=== PATIENT | female | born 1960 | race Hispanic/Latino ===

== ENCOUNTER 2017-01-20 11:13 | Emergency (ER) | payer SELFPAY ==
[2017-01-20] MEDS ORDERED: Ketorolac Tromethamine 60 MG/2 ML VIAL ONE (12:13)
[2017-01-20 12:32] LABS: Bilirubin Negative (Negative); Blood, Urine Negative (Negative); Glucose, Urine (Dipstick) 100 mg/dL (Negative); Ketone, Urine Negative (Negative); Nitrite Negative (Negative); Protein, Urine (Dipstick) Negative (Neg-Trace)
[2017-01-20] MEDS ORDERED: Ondansetron ODT 4 MG TAB ONE (13:48)
[2017-01-20] MEDS ORDERED: Morphine 10 MG/ML VIAL ONE (13:49)
--- NOTE | 2017-01-20 14:18 | CT ---
ABDOMEN AND PELVIS CT SCAN WITHOUT IV CONTRAST: HISTORY: A 56-year-old female with low back pain and abdominal pain, which started yesterday. COMPARISON: 08/01/2016 FINDINGS: The lung bases are clear. Stable hypodensity in the right lobe of the liver, consistent with docume ntation of a benign hemangioma on the prior scan of 08/01/2016. Somewhat small caliber gallbladder. The pancreas, spleen, and adrenal glands are unremarkable. No evidence for renal calculus or acut e obstruction. Normal appearing appendix. Small fat-containing umbilical hernia. Small hiatal hernia. Unremarkable uterus and adnexa. Colonic diverticulosis without diverticulitis. IMPRESSION: No significant acute process in the abdomen or pelvis. Stable findings from prior study. Small hia jude hernia. Small fat-containing umbilical hernia. POS: [facility]
[2017-01-20 14:42] LABS: Hematocrit 33.2 % (36.0-47.0); Mean Platelet Volume 8.7 fL (7.4-10.4); Red Blood Cell (RBC) Count 4.58 mill/uL (4.20-5.40); White Blood Cell (WBC) Count 4.2 thou/uL (4.8-10.8)
[2017-01-20 15:02] LABS: ALT (SGPT) 16 U/L (8-55); AST (SGOT) 21 U/L (5-34); Alkaline Phosphatase 95 U/L (40-150); Anion Gap 14 mmol/L (10-20); BUN (Urea Nitrogen) 18 mg/dL (9.8-20.1); Bilirubin, Total 0.2 mg/dL (0.2-1.2); Calc. Creatinine Clearance 0 mL/min (70-130); Carbon Dioxide 23 mmol/L (22-29); Chloride 107 mmol/L (98-107); Estimated GFR-MDRD 73; Lipase 25 U/L (8-78); Protein, Total 7.7 g/dL (6.0-8.3)
[2017-01-20 15:04] LABS: #Basophils 0.1 thou/uL (0.0-0.2); #Eosinphils 0.1 thou/uL (0.0-0.7); #Lymphocytes 1.8 thou/uL (1.20-3.40); #Monocytes 0.5 thou/uL (0.11-0.59); #Neutrophils 1.7 thou/uL (1.40-6.50); %Basophils 1.9 % (0.0-1.0); %Eosinophils 2.8 % (0.0-10.0); %Lymphocytes 43.6 % (21.0-51.0); %Monocytes 11.4 % (0.0-10.0); Anisocytosis SLIGHT = 6-15 cells (100X) (0-5/hpf); Hypochromia SLIGHT = 6-15 cells (100X) (0-5/hpf); Microcytosis SLIGHT = 6-15 cells (100X) (0-5/hpf)
== END 2017-01-20 16:10 | disposition home or self-care (01) ==
LOC: ERS 11:13
DX: M54.5 Low back pain (principal); K21.9 Gastro-esophageal reflux disease without esophagitis; J45.909 Unspecified asthma, uncomplicated
CPT/HCPCS: 36415; 74176; 80053; 81003; 83690; 85025; 87086; 96372; J1885; J2270; Q0162

== ENCOUNTER 2017-04-13 11:48 | Emergency (ER) | payer OTHER, SELFPAY ==
[2017-04-13 12:09] LABS: Bilirubin Small (Negative); Blood, Urine Negative (Negative); Clarity CLEAR (Clear); Glucose, Urine (Dipstick) Negative (Negative); Leukocyte Trace (Negative); Nitrite Negative (Negative); Protein, Urine (Dipstick) 30 mg/dL (Neg-Trace); Specific Gravity, Urine 1.026 (1.002-1.036); Urobilinogen 0.2 mg/dL (0.2-1.0)
[2017-04-13 12:11] LABS: Bacteria/HPF None Seen HPF (None Seen); Hyaline Casts/LPF 4-6 HYALINE CAST LPF (0-3 Hyaline); Pathc Cast-AUWi Flag 0.54 (0-2.49)
[2017-04-13 12:39] LABS: #Eosinphils 0.1 thou/uL (0.0-0.7); #Lymphocytes 0.9 thou/uL (1.20-3.40); #Monocytes 0.3 thou/uL (0.11-0.59); %Basophils 0.6 % (0.0-1.0); %Eosinophils 1.2 % (0.0-10.0); %Lymphocytes 20.9 % (21.0-51.0); %Monocytes 6.9 % (0.0-10.0); %Neutrophils 70.4 % (42.0-75.0); Hemoglobin 10.8 g/dL (12.0-16.0); Hypochromia SLIGHT = 6-15 cells (100X) (0-5/hpf); MDiff Complete? YES; Mean Corpuscular HGB CONC 29.8 g/dL (32.0-36.0); Mean Corpuscular Hemoglobin 21.6 pg (27.0-31.0); Mean Corpuscular Volume 72.4 fl (81.0-99.0); Mean Platelet Volume 9.1 fL (7.4-10.4); Microcytosis SLIGHT = 6-15 cells (100X) (0-5/hpf); Platelet Count 302 thou/uL (130-400); RBC Distribution Width 17.7 % (11.5-14.5); Red Blood Cell (RBC) Count 4.98 mill/uL (4.20-5.40); White Blood Cell (WBC) Count 4.2 thou/uL (4.8-10.8)
[2017-04-13 12:43] LABS: ALT (SGPT) 14 U/L (8-55); AST (SGOT) 18 U/L (5-34); Albumin 4.1 g/dL (3.5-5.0); Alkaline Phosphatase 99 U/L (40-150); Anion Gap 13 mmol/L (10-20); BUN (Urea Nitrogen) 8 mg/dL (9.8-20.1); Bilirubin, Total 0.3 mg/dL (0.2-1.2); Calc. Creatinine Clearance 0 mL/min (70-130); Calcium 9.2 mg/dL (7.8-10.44); Carbon Dioxide 24 mmol/L (22-29); Chloride 103 mmol/L (98-107); Estimated GFR-MDRD 81; Globulin 4.2 g/dL (2.4-3.5); Glucose 139 mg/dL (70-105); Lipase 13 U/L (8-78); Potassium 3.5 mmol/L (3.5-5.1); Protein, Total 8.3 g/dL (6.0-8.3); Sodium 136 mmol/L (136-145)
[2017-04-13] MEDS ORDERED: Ondansetron HCl/PF 4 MG/2 ML Vial ONE (12:54)
[2017-04-13] MEDS ORDERED: Ketorolac Tromethamine 30 MG/ML VIAL ONE (12:54)
--- NOTE | 2017-04-13 13:20 | RAD ---
CHEST 2 VIEWS: HISTORY: Cough. COMPARISON: 02/14/15. FINDINGS: Cardiac silhouette is unremarkable. Pulmonary vasculature is upper limits of normal. Mediastinum is midline. There is no confluent airspace consolidation, pneumothorax, or pleural fluid evident. IMPRESSION: No active cardiopulmonary abnormalities demonstrated. POS: [facility]
--- NOTE | 2017-04-13 13:22 | CT ---
CT ABDOMEN AND PELVIS NONCONTRAST: HISTORY: Right flank pain. FINDINGS: Each renal collecting system, ureter, and urinary bladder are decompressed without stone evident. Ph leboliths are apparent within the retroperitoneum outside of the course of each ureter. Lack of contrast limits evaluation for other abnormalities. Hiatal hernia is again demonstrated. Li sanya is diffusely hypodense. Calcified granulomata are consistent with healed granulomatous disease. Diverticula arise from the colon without adjacent inflammation. IMPRESSION: 1. No CT evidence of urinary tract obstruction or calcification. 2. Hepatosteatosis. 3. Diverticulosis. POS: [facility]
[2017-04-13] MEDS ORDERED: Morphine 4 MG/ML Carpuject ONE (13:47)
--- NOTE | 2017-04-13 15:11 | ULT ---
RIGHT UPPER QUADRANT ULTRASOUND:: History: Right upper quadrant abdominal pain and flank pain. Comparison: 09-13-14 Technique: Multiplanar grayscale and color doppler images were obtained in a right upper quadrant abd ominal ultrasound. FINDINGS: The liver demonstrates slight increased echogenicity without focal lesions or intrahepatic duct dilat ation. The gallbladder contains a shadowing mobile stone without gallbladder wall thickening or peric holecystic fluid. The common bile duct is normal measuring 6 mm. The visualized portions of the pancreas are unremarkable. The right kidney is normal in echogenicity without hydronephrosis or calculus and measures 12.0 cm in length. IMPRESSION: 1. Cholelithiasis. 2. Fatty liver. POS: [facility]
== END 2017-04-13 15:00 | disposition home or self-care (01) ==
LOC: ERS 11:48 → SDC 04-14 06:52
DX: K80.20 Calculus of gallbladder without cholecystitis without obstruction (principal); F32.9 Major depressive disorder, single episode, unspecified; Z87.891 Personal history of nicotine dependence; Z79.899 Other long term (current) drug therapy
CPT/HCPCS: 36415; 71046; 74176; 76705; 80053; 81003; 81015; 82550; 83690; 85025; 87086; 87804; 94760; 96361; 96374; 96375; 99406; J1885; J2270; J2405

== ENCOUNTER 2017-04-15 18:34 | Inpatient (IN) | payer SELFPAY ==
[2017-04-15 18:56] LABS: #Monocytes 0.3 thou/uL (0.11-0.59); #Neutrophils 1.8 thou/uL (1.40-6.50); %Basophils 0.9 % (0.0-1.0); %Eosinophils 0.5 % (0.0-10.0); %Lymphocytes 32.1 % (21.0-51.0); %Monocytes 7.9 % (0.0-10.0); %Neutrophils 58.5 % (42.0-75.0); Hemoglobin 10.6 g/dL (12.0-16.0); Mean Corpuscular HGB CONC 29.2 g/dL (32.0-36.0); Mean Corpuscular Hemoglobin 21.1 pg (27.0-31.0); Mean Corpuscular Volume 72.2 fl (81.0-99.0); Mean Platelet Volume 9.6 fL (7.4-10.4); Platelet Count 244 thou/uL (130-400); RBC Distribution Width 17.7 % (11.5-14.5); Red Blood Cell (RBC) Count 5.04 mill/uL (4.20-5.40); White Blood Cell (WBC) Count 3.1 thou/uL (4.8-10.8)
[2017-04-15 19:17] LABS: ALT (SGPT) 12 U/L (8-55); AST (SGOT) 19 U/L (5-34); Alkaline Phosphatase 89 U/L (40-150); Anion Gap 13 mmol/L (10-20); BUN (Urea Nitrogen) 8 mg/dL (9.8-20.1); Bilirubin, Total 0.4 mg/dL (0.2-1.2); Calc. Creatinine Clearance 0 mL/min (70-130); Carbon Dioxide 23 mmol/L (22-29); Chloride 97 mmol/L (98-107); Estimated GFR-MDRD 83; Globulin 4.2 g/dL (2.4-3.5); Glucose 105 mg/dL (70-105); Lipase 6 U/L (8-78); Potassium 3.2 mmol/L (3.5-5.1); Protein, Total 8.2 g/dL (6.0-8.3); Sodium 130 mmol/L (136-145)
[2017-04-15 21:27] LABS: Bilirubin Small (Negative); Blood, Urine Negative (Negative); Clarity CLEAR (Clear); Glucose, Urine (Dipstick) Negative (Negative); Leukocyte Small (Negative); Nitrite Negative (Negative); Protein, Urine (Dipstick) 30 mg/dL (Neg-Trace); Specific Gravity, Urine 1.022 (1.002-1.036)
[2017-04-15 21:29] LABS: Bacteria/HPF 1+ HPF (None Seen); Hyaline Casts/LPF 0-3 HYALINE CAST LPF (0-3 Hyaline); Pathc Cast-AUWi Flag 0.27 (0-2.49)
[2017-04-15] MEDS ORDERED: Morphine 4 MG/ML Carpuject ONE (22:22)
[2017-04-15] MEDS ORDERED: Acetaminophen 500 MG TAB ONE (22:22)
[2017-04-15] MEDS ORDERED: Ondansetron HCl/PF 4 MG/2 ML Vial ONE (22:22)
--- NOTE | 2017-04-15 23:15 | ULT ---
RIGHT UPPER QUADRANT ULTRASOUND 04/15/17 PROVIDED CLINICAL HISTORY: Right upper quadrant pain. FINDINGS: Comparison is made with the study dated 04/13/17. The visualized portions of the pancreas appear normal. The liver demonstrates no mass or intrahepatic biliary ductal dilatation. The common duct is prominent in caliber measuring about 7 mm. Multiple ga llstones are again seen without evidence for wall thickening or pericholecystic fluid. The liver appe ars enlarged measuring about 22 cm in craniocaudal dimension at the right hepatic lobe. Fatty infiltr ation of the liver is again seen. IMPRESSION: 1. Cholelithiasis without acute findings related to the gallbladder apparent sonographically. 2. Prominent in caliber common duct. Please correlate with laboratory values to exclude the pres ence of biliary obstructive change. Correlation with MRCP may be useful as indicated. POS: [facility]
[2017-04-16] MEDS ORDERED: metroNIDAZOLE 500 MG/100 ML BAG ONE (00:11)
[2017-04-16 00:37] LABS: PTT 39.7 SEC (22.9-36.1); Prothrombin Time 13.3 SEC (12.0-14.7)
[2017-04-16] MEDS ORDERED: Morphine 4 MG/ML Carpuject ONE (00:46)
[2017-04-16] MEDS ORDERED: Diabetic Tussin DM 5 ML UDCUP PO SCH (01:00)
[2017-04-16 01:44] VITALS: BMI 29.2
[2017-04-16] MEDS ORDERED: Ondansetron ODT 4 MG TAB SL PRN (01:46)
[2017-04-16] MEDS ORDERED: Ondansetron HCl/PF 4 MG/2 ML Vial IVP PRN ×2 (01:46→09:46)
[2017-04-16] MEDS ORDERED: Morphine 2 MG/ML SYRINGE SLOW IVP PRN ×5 (01:46→10:15)
[2017-04-16] MEDS ORDERED: Acetaminophen 325 MG TAB PO PRN (01:46)
--- NOTE | 2017-04-16 07:55 | HP ---
CHIEF COMPLAINT: Right upper quadrant abdominal pain. HISTORY OF PRESENT ILLNESS: The patient is a 56-year-old female with a 5-day history of right upper quadrant pain radiating to the back, associated with nausea, vomiting, and subjective fever. She den ies dark urine. PAST MEDICAL HISTORY: She has a history of peptic ulcer disease. PAST SURGICAL HISTORY: None. MEDICATIONS: Prilosec. ALLERGIES: PENICILLIN. SOCIAL HISTORY: She is , unemployed. No tobacco, no alcohol. She has allergy to PENICILLIN . FAMILY HISTORY: Diabetes. PHYSICAL EXAMINATION: VITAL SIGNS: Temperature 98.4, pulse 77, blood pressure 105/68. GENERAL: She is an obese female in pain. HEENT: Unremarkable. No jaundice. LUNGS: Clear. HEART: Regular rate and rhythm. ABDOMEN: Tender in the right upper quadrant with a positive Wong's sign. EXTREMITIES: Unremarkable. LABORATORY DATA AND IMAGING: White count 3.1, H&H is 10 and 35, platelet count 244. Electrolytes ar e fine. LFTs are normal. Ultrasound shows cholelithiasis with enlarged common bile duct. ASSESSMENT: Acute cholecystitis. PLAN: Laparoscopic cholecystectomy with cholangiogram. CONSENT: I have discussed the planned procedure as well as risk of bleeding, infection, injury to bi le duct, injury to bowel, need to open. She understands and gives informed consent.
[2017-04-16] MEDS ORDERED: Levofloxacin 500 mg/D5W 100 ml Premix Bag ONE (08:27)
[2017-04-16] MEDS ORDERED: Iothalamate Meglumine 60% 50 ML VIAL FS ONE (08:34)
[2017-04-16] MEDS ORDERED: Lidocaine 2% w/Epinephrine 1:200K 20 ML VIAL ONE (08:34)
[2017-04-16] MEDS ORDERED: Bupivacaine 0.25% HCL 30 ML VIAL ONE (08:34)
[2017-04-16] MEDS ORDERED: Fentanyl 100 MCG/2 ML VIAL ONE ×3 (08:37→10:28)
[2017-04-16] MEDS ORDERED: FLU VACC QS2017-18 36 mo. & older 0.5 ML SYRINGE IM ONE (09:00)
[2017-04-16] MEDS ORDERED: Promethazine HCl 25 MG/ML VIAL IM PRN ×2 (09:46→09:56)
[2017-04-16] MEDS ORDERED: Morphine 4 MG/ML Carpuject SLOW IVP PRN (09:46)
[2017-04-16] MEDS ORDERED: HYDROcodone/Acetaminophen 10/325 mg Tablet PO PRN (09:46)
[2017-04-16] MEDS ORDERED: hydrALAZINE 20 MG/ML VIAL SLOW IVP PRN (09:46)
[2017-04-16] MEDS ORDERED: Dextrose 50% Abboject 50 ML SYRINGE SLOW IVP PRN (09:46)
[2017-04-16] MEDS ORDERED: Dextrose 5% in Water 1,000 ML IV PRN (09:46)
[2017-04-16] MEDS ORDERED: Mag-Al 1200 mg/1200 mg/30 ML UDCUP PO PRN (09:46)
[2017-04-16] MEDS ORDERED: Calcium Carbonate 500 MG ChewTAB PO PRN (09:46)
[2017-04-16] MEDS ORDERED: Morphine Sulfate 2 MG/ML SYRINGE SLOW IVP PRN (09:56)
[2017-04-16] MEDS ORDERED: Meperidine HCl/PF 25 MG/ML VIAL SLOW IVP PRN (09:56)
[2017-04-16] MEDS ORDERED: Promethazine HCl 25 MG/ML VIAL SLOW IVP PRN (09:56)
--- NOTE | 2017-04-16 10:28 | OP ---
DATE OF PROCEDURE: 04/16/2017 PREOPERATIVE DIAGNOSIS: Acute cholecystitis. SURGEON: Kamari Park M.D. PROCEDURE PERFORMED: Laparoscopic cholecystectomy with intraoperative cholangiogram. INDICATIONS: The patient is a 56-year-old female who has been having severe right upper quadrant salvatore n for the last 5 days, progressive in nature, associated with nausea. Ultrasound showed cholelithias is with enlarged common bile duct, but her liver function tests were normal. FINDINGS: Cholangiogram was normal. She did have somewhat inflamed gallbladder with some large ston es. PROCEDURE IN DETAIL: After informed consent was obtained, the patient was taken to the operating evelyne m and given general endotracheal anesthesia, was placed in the supine position. The abdomen was prep ped and draped in the usual fashion. Local anesthesia infiltrated subcutaneously and deep. A subumb ilical incision was performed. The subcu divided sharply. The fascia grasped and two stay sutures o f 0 Vicryl were placed to either side of midline. Midline incised. Digital palpation revealed no lo silvia adhesions. A blunt 10/12 mm trocar inserted. Pneumoperitoneum was created to a pressure of 15 m mHg. A 0-degree laparoscope inserted. Under direct vision, three 5 mm ports were placed subcostally . The gallbladder was distended and had to be aspirated and 90 mL of bile removed from the gallbladd er. Gallbladder was grasped and advanced superiorly. The distal gallbladder, cystic duct and cystic artery as well as critical view were dissected out. A clip was placed at the base of the gallbladde r. An Arrow cholangiocatheter inserted within the cystic duct and intraoperative cholangiogram was p erformed utilizing fluoroscopy. This showed free flow into the duodenum, no filling defects. The ca theter removed. The duct triply ligated and divided. The artery triply ligated and divided. The ga llbladder was removed from its fossa utilizing electrocautery, removed from the abdomen through the u mbilical port. Hemostasis was assured. Trocars and retractors were removed. The fascia was closed with interrupted 0 Vicryl suture. The skin was closed with interrupted 4-0 Rapide. Dermond miguel d. The patient tolerated the procedure well and transferred to recovery in good condition. Sponge a nd needle count verified correct x2.
--- NOTE | 2017-04-16 10:36 | RAD ---
CHOLANGIOGRAM INTRAOPERATIVE 1 VIEW: DATE: 04/16/17. HISTORY: A 56-year-old female with cholelithiasis. FINDINGS: A single small field of view fluoroscopic spot image is obtained with C-arm. Contrast fills the comm on bile duct and common hepatic duct, and the right hepatic duct and some of its proximal branches. The left hepatic duct and its branches are not opacified. There are cholecystectomy clips. Contrast material is visualized in the duodenum. The common bile duct is mildly dilated. It tapers to a nor mal caliber far inferiorly. No filling defect is identified. IMPRESSION: 1. No high-grade biliary obstruction. 2. Nonspecific finding of mild dilation of the common bile duct, without convincing evidence of chol edocholithiasis. POS: [facility]
[2017-04-16] MEDS: Ketorolac Tromethamine 30 MG/ML VIAL IVP SCH ×2 (12:30→17:53)
[2017-04-16] MEDS ORDERED: Ondansetron HCl/PF 4 MG/2 ML Vial ONE (15:03)
[2017-04-16] MEDS ORDERED: Dexamethasone 20 MG/5 ML VIAL ONE (15:03)
[2017-04-16] MEDS ORDERED: PROPOFOL 200 MG/20 ML VIAL ONE (15:03)
[2017-04-16] MEDS ORDERED: Ketorolac Tromethamine 30 MG/ML VIAL ONE (15:03)
[2017-04-16] MEDS ORDERED: Lidocaine 1% PF 5 ML VIAL ONE (15:03)
[2017-04-16] MEDS ORDERED: Glycopyrrolate 0.2 MG/ML 5 ML SYRINGE ONE (15:03)
[2017-04-16] MEDS: HYDROcodone/Acetaminophen 10/325 mg Tablet PO PRN (17:52)
[2017-04-16] MEDS: Sodium Chloride 0.9% 1,000 ML IV SCH (19:11)
[2017-04-16] MEDS: Famotidine 20 MG TAB PO SCH (21:23)
[2017-04-16] MEDS: Famotidine/PF 20 mg/2ml Vial SLOW IVP SCH (21:55)
[2017-04-17] MEDS: Ketorolac Tromethamine 30 MG/ML VIAL IVP SCH ×4 (00:44→17:08)
[2017-04-17 05:52] LABS: #Monocytes 0.3 thou/uL (0.11-0.59); #Neutrophils 1.8 thou/uL (1.40-6.50); %Basophils 0.8 % (0.0-1.0); %Eosinophils 0.4 % (0.0-10.0); %Lymphocytes 32.2 % (21.0-51.0); %Monocytes 9.3 % (0.0-10.0); %Neutrophils 57.2 % (42.0-75.0); Hemoglobin 9.1 g/dL (12.0-16.0); Mean Corpuscular HGB CONC 30.2 g/dL (32.0-36.0); Mean Corpuscular Volume 72.9 fl (81.0-99.0); Mean Platelet Volume 9.4 fL (7.4-10.4); Platelet Count 240 thou/uL (130-400); RBC Distribution Width 17.7 % (11.5-14.5); Red Blood Cell (RBC) Count 4.11 mill/uL (4.20-5.40); White Blood Cell (WBC) Count 3.2 thou/uL (4.8-10.8)
[2017-04-17 06:04] LABS: ALT (SGPT) 27 U/L (8-55); AST (SGOT) 44 U/L (5-34); Albumin 3.5 g/dL (3.5-5.0); Alkaline Phosphatase 80 U/L (40-150); Anion Gap 10 mmol/L (10-20); BUN (Urea Nitrogen) 9 mg/dL (9.8-20.1); Bilirubin, Total 0.2 mg/dL (0.2-1.2); Calc. Creatinine Clearance 115 mL/min (70-130); Calcium 8.9 mg/dL (7.8-10.44); Carbon Dioxide 26 mmol/L (22-29); Chloride 103 mmol/L (98-107); Estimated GFR-MDRD Greater than 90; Globulin 3.6 g/dL (2.4-3.5); Glucose 211 mg/dL (70-105); Potassium 3.1 mmol/L (3.5-5.1); Protein, Total 7.1 g/dL (6.0-8.3); Sodium 136 mmol/L (136-145)
[2017-04-17] MEDS: HYDROcodone/Acetaminophen 10/325 mg Tablet PO PRN ×2 (08:16→14:24)
[2017-04-17] MEDS: Famotidine 20 MG TAB PO SCH (08:16)
[2017-04-17] MEDS: Famotidine/PF 20 mg/2ml Vial SLOW IVP SCH (08:20)
[2017-04-17] MEDS ORDERED: Enoxaparin Sodium 40 MG/0.4 ML SYRINGE SC SCH (09:00)
--- NOTE | 2017-04-17 12:27 | DIS ---
DISCHARGE DIAGNOSIS: Acute cholecystitis. PROCEDURES DURING ADMISSION: Laparoscopic cholecystectomy with cholangiogram. HOSPITAL COURSE: The patient was admitted, given IV antibiotics, taken to the operating room where s he underwent a laparoscopic cholecystectomy with cholangiogram. Postoperatively, she has done well. She is tolerating liquids well, pain was controlled on p.o. medication. She is discharged home on h ydrocodone and Zofran. She will follow up with me in 2 weeks.
[2017-04-17 15:14] VITALS: BP 143/89; TEMP 97.4
[2017-04-17] MEDS ORDERED: Ondansetron ODT 4 MG TAB PO PRN (16:46)
--- NOTE | 2017-04-26 13:43 | EKG ---
Test Reason : Blood Pressure : / mmHG Vent. Rate : 079 BPM Atrial Rate : 079 BPM P-R Int : 136 ms QRS Dur : 080 ms QT Int : 426 ms P-R-T Axes : 053 005 041 degrees QTc Int : 488 ms Normal sinus rhythm Prolonged QT Abnormal ECG Confirmed by ECHO REYEZ ([id number]), design editor JUAN PARSONS ([id number]) on 04/26/2017 1:42:58 PM Referred By: DEREJE Confirmed By:ECHO REYEZ
== END 2017-04-17 17:49 | disposition home or self-care (01) | DRG 419 ==
LOC: ERS 18:34 → SURG B 23:55
PROVIDERS: ADMIT Surgery; ATTEND Surgery
PROC: 0FT44ZZ Resection of Gallbladder, Percutaneous Endoscopic Approach (ICD-10-PCS; principal; 2017-04-16)
PROC: BF130ZZ Fluoroscopy of Gallbladder and Bile Ducts using High Osmolar Contrast (ICD-10-PCS; 2017-04-16)
DX: K80.00 Calculus of gallbladder with acute cholecystitis without obstruction (principal); K27.9 Peptic ulcer, site unspecified, unspecified as acute or chronic, without hemorrhage or perforation
CPT/HCPCS: 36415; 47532; 76705; 80053; 81003; 81015; 82150; 83605; 83690; 85025; 85610; 85730; 86850; 86900; 86901; 87040; 88304; 93005; 96361; 96365; 96375; 96376; A4216; J0131; J0744; J1100; J1885; J1956; J2001; J2270; J2405; J2704; J3010; Q0162; Q9961; S0020; S0028

== ENCOUNTER 2017-04-20 11:52 | Observation (INO) | payer SELFPAY ==
[2017-04-20 12:39] LABS: #Basophils 0.1 thou/uL (0.0-0.2); #Lymphocytes 2.2 thou/uL (1.20-3.40); #Monocytes 0.4 thou/uL (0.11-0.59); #Neutrophils 5.4 thou/uL (1.40-6.50); %Basophils 1.1 % (0.0-1.0); %Eosinophils 0.6 % (0.0-10.0); %Lymphocytes 26.4 % (21.0-51.0); %Monocytes 5.4 % (0.0-10.0); %Neutrophils 66.5 % (42.0-75.0); Hemoglobin 12.8 g/dL (12.0-16.0); Mean Corpuscular HGB CONC 30.7 g/dL (32.0-36.0); Mean Corpuscular Volume 71.7 fl (81.0-99.0); Mean Platelet Volume 9.3 fL (7.4-10.4); Platelet Count 512 thou/uL (130-400); RBC Distribution Width 18.9 % (11.5-14.5); Red Blood Cell (RBC) Count 5.81 mill/uL (4.20-5.40); White Blood Cell (WBC) Count 8.2 thou/uL (4.8-10.8)
[2017-04-20 13:02] LABS: ALT (SGPT) 63 U/L (8-55); AST (SGOT) 66 U/L (5-34); Albumin 4.4 g/dL (3.5-5.0); Alkaline Phosphatase 136 U/L (40-150); Anion Gap 18 mmol/L (10-20); BUN (Urea Nitrogen) 32 mg/dL (9.8-20.1); Bilirubin, Total 0.8 mg/dL (0.2-1.2); Calc. Creatinine Clearance 0 mL/min (70-130); Calcium 10.3 mg/dL (7.8-10.44); Carbon Dioxide 23 mmol/L (22-29); Chloride 97 mmol/L (98-107); Estimated GFR-MDRD 45; Globulin 4.9 g/dL (2.4-3.5); Glucose 175 mg/dL (70-105); Lipase 17 U/L (8-78); Potassium 3.2 mmol/L (3.5-5.1); Protein, Total 9.3 g/dL (6.0-8.3); Sodium 135 mmol/L (136-145)
[2017-04-20] MEDS ORDERED: ISOVUE-370 76%-LOCM 1 ML ONE (14:36)
[2017-04-20] MEDS ORDERED: Fentanyl 100 MCG/2 ML VIAL ONE ×2 (15:55→18:06)
[2017-04-20] MEDS ORDERED: Ondansetron HCl/PF 4 MG/2 ML Vial ONE ×5 (15:55→18:06)
[2017-04-20] MEDS ORDERED: Ketorolac Tromethamine 30 MG/ML VIAL ONE (16:39)
[2017-04-20] MEDS ORDERED: Glycopyrrolate 0.2 MG/ML 5 ML SYRINGE ONE (16:39)
[2017-04-20] MEDS ORDERED: Lidocaine 1% PF 5 ML VIAL ONE (16:39)
[2017-04-20] MEDS ORDERED: PROPOFOL 200 MG/20 ML VIAL ONE (16:39)
[2017-04-20] MEDS ORDERED: Succinylcholine Chloride 20 MG/ML 10 ml SYRINGE FS ONE (16:39)
[2017-04-20] MEDS ORDERED: Dexamethasone 20 MG/5 ML VIAL ONE (16:39)
[2017-04-20] MEDS ORDERED: PHENYLEPHRINE-NS 100 MCG/ML 10 ML SYRINGE ONE (16:39)
[2017-04-20] MEDS ORDERED: ePHEDrine/0.9% NaCl/PF SYRINGE 50 mg/10 ml ONE (16:39)
[2017-04-20 17:01] LABS: Bilirubin Moderate (Negative); Blood, Urine Negative (Negative); Clarity CLEAR (Clear); Glucose, Urine (Dipstick) Negative (Negative); Leukocyte Negative (Negative); Nitrite Negative (Negative); Protein, Urine (Dipstick) 30 mg/dL (Neg-Trace); pH, Urine 6.5 (5.0-9.0)
[2017-04-20 17:03] LABS: Pathc Cast-AUWi Flag 1.21 (0-2.49)
[2017-04-20 17:05] LABS: Specific Gravity, Urine Greater than 1.060 (1.002-1.036)
--- NOTE | 2017-04-20 17:07 | RAD ---
1 VIEW CHEST: Date: 04/20/17 HISTORY: Pain. COMPARISON: 04/13/17. FINDINGS: Normal cardiac silhouette. Lungs and pleural spaces are clear. No pneumothorax or osseous abnormaliti es. IMPRESSION: No acute cardiopulmonary process. POS: [facility]
[2017-04-20 17:10] LABS: Bacteria/HPF None Seen HPF (None Seen); Hyaline Casts/LPF 0-3 HYALINE CAST LPF (0-3 Hyaline); RBC/HPF 0-3 HPF (0-3); Squamous Epithelial 0-3 HPF (0-3)
[2017-04-20 17:19] LABS: CKMB 0.5 ng/mL (0-6.6); Troponin I Less than 0.010 ng/mL (< 0.028)
--- NOTE | 2017-04-20 17:38 | CT ---
ABDOMEN CT WITH CONTRAST PELVIC CT WITH CONTRAST: Date: 04/20/17 HISTORY: Abdominal pain. COMPARISON: 08/01/16, 04/13/17. FINDINGS: ABDOMEN CT: Lung bases are clear. Heart size is within normal limits. No significant pericardial fluid. Descendin g thoracic aorta and abdominal aorta have a normal caliber. No periaortic fat stranding. Symmetric at tenuation of psoas muscles. Gallbladder is surgically absent. Intra and extrahepatic portal vein is patent. Hypoattenuation of the liver due to hepatic steatosis. No hepatic masses. The spleen, pancreas, and b ilateral adrenal glands have appropriate enhancement. No gastrohepatic, retrocrural, or significant periportal lymphadenopathy. There is nonspecific lymph node anterior to the aorta just superior to the celiac artery. This lymph node is unchanged from July 2016. Symmetric enhancement of the kidneys. Subcentimeter hypodensity in the right kidney, too small to rebel racterize. Bilaterally, no obstructive uropathy. No mesenteric mass, lymphadenopathy, free air, or free fluid. Limited evaluation of the alimentary canal due to lack of oral contrast administration. There is rede monstration of umbilical ventral abdominal hernia containing mesenteric fat. There is interval develo pment of abdominal hernia containing a segment of mesentery and small bowel. The afferent loops are d ilated and fluid-filled. The efferent loops are decompressed. Colon is unremarkable. Normal caliber appendix. Scattered fecal material in a nondistended, nondilate d colon. Diverticulosis, without evidence of diverticulitis. PELVIS CT: Uterus and adnexal structures are unremarkable. No pelvic mass, lymphadenopathy, free air, or free fl uid. Urinary bladder is unremarkable. No lytic or blastic lesions in the osseous structures. IMPRESSION: Small bowel obstruction secondary to a newly developed ventral abdominal hernia containing a short se gment of small bowel and mesentery. There is a transition segment at the level of the hernia. Surgica l consultation for reduction is recommended. Results of study discussed with Dr. Bonner on 04/20/17 at 1631 hours. CODE CR. POS: [facility]
--- NOTE | 2017-04-20 17:47 | RAD ---
1 VIEW ABDOMEN: Date: 04/20/17 HISTORY: Gastric tube placement. COMPARISON: None. FINDINGS: Nasogastric tube at level of GE junction. Repositioning and advancement is recommended. Air-filled lo ops of distended small bowel identified. Contrast is noted in left and right intrarenal collecting sy stems. IMPRESSION: Advancement of nasogastric tube is recommended. POS: [facility]
[2017-04-20] MEDS ORDERED: Morphine 2 MG/ML SYRINGE ONE (17:48)
[2017-04-20] MEDS ORDERED: HYDROmorphone 0.5 MG/0.5 ML SYRINGE ONE (18:06)
[2017-04-20] MEDS ORDERED: Famotidine/PF 20 mg/2ml Vial ONE (18:30)
[2017-04-20] MEDS ORDERED: Midazolam HCl 2 mg/2 ml Vial ONE (18:40)
[2017-04-20] MEDS ORDERED: Lidocaine 2% w/Epinephrine 1:200K 20 ML VIAL ONE (19:32)
[2017-04-20] MEDS ORDERED: Bupivacaine 0.25% HCL 30 ML VIAL ONE (19:32)
[2017-04-20] MEDS ORDERED: SUGAMMADEX SODIUM 200 MG/2 ML VIAL ONE (19:46)
--- NOTE | 2017-04-20 19:51 | HP ---
CHIEF COMPLAINT: Abdominal pain, nausea, and vomiting. HISTORY OF PRESENT ILLNESS: Ms. Capps is a 56-year-old woman. She underwent a laparoscopic cholecystectomy on 04/17/2017, but has had vomiting and abdominal pain since the operation. At this point, she cannot hold anything down and the pain is getting worse, so she decided to come to the emergency room. When she arrived, she reported her pain as 10/10. PAST MEDICAL HISTORY: Ulcer disease. PAST SURGICAL HISTORY: Laparoscopic cholecystectomy and tubal ligation. SOCIAL HISTORY: She used to smoke, does not drink or use illicit drugs. OUTPATIENT MEDICATIONS: [place] p.r.n. since her operation, which is not helping. ALLERGIES: She has an allergy to PENICILLIN, which causes a rash. FAMILY HISTORY: Noncontributory. PHYSICAL EXAMINATION: VITAL SIGNS: Temperature 97.1, heart rate 115, blood pressure 101/71, respirations 16, 95% saturated on room air. GENERAL: Reveals a tearful, anxious woman in obvious distress. She is not flushed or toxic. She is not jaundiced or icteric. HEENT: Unremarkable. NECK: Supple, without lymphadenopathy. HEART: Rate has come down a little bit, but is still around 100. It is regular. I do not appreciate any murmurs, rubs, or gallops. LUNGS: Clear to auscultation bilaterally. ABDOMEN: Mildly tender to palpation diffusely, but very tender just below the umbilicus where there is a firm knot, which I am unable to reduce with gentle pressure. EXTREMITIES: Warm and well perfused without edema. NEUROLOGIC: No focal deficits. PSYCHIATRIC: Alert, oriented, and appropriate. LABORATORY DATA: White count is normal, hematocrit 41, platelet 512, BUN and creatinine are mildly elevated at 32 and 1.24, glucose is 175, AST and ALT are mildly elevated at 66 and 63, bilirubin is normal. Potassium is slightly low at 3.2. On comparison with past labs, her BUN and creatinine has been normal in the past and her AST was only mildly elevated prior to her gallbladder surgery. Her hematocrit is significantly elevated from her labs from her hematocrit at the time for gallbladder surgery, which was [address] images are reviewed and I agree with the written report. The patient has dilated proximal small bowel and decompressed distal small bowel, the transition point is in a hernia just below her umbilicus. ASSESSMENT: Incarcerated obstructing ventral hernia. I have recommended urgent repair in the operating room. The patient is significantly dehydrated and I have ordered IV fluids and she has also received some IV fluids in the emergency room: 2 liters so far. I will likely keep her for observation postoperatively to make sure that her renal function returns to normal. I do not think that she likely has strangulated bowel, but if there is evidence of ischemic damage then a small bowel resection will be performed as well. The procedure and its inherent risks were discussed with the patient. These include , but are not limited to bleeding, infection, risks of anesthesia, damage to nearby structures, recurrence of the hernia, and anastomotic leak, a small bowel resection is necessary. She understands and accepts these risks and wishes to proceed. She is allergic to PENICILLIN, so I will order levofloxacin and Flagyl onion farmer to the OR. [facility]
[2017-04-20] MEDS ORDERED: Fentanyl 5000 MCG/250 ML CADD IVPB PRN (19:57)
[2017-04-20] MEDS ORDERED: diphenhydrAMINE 50 MG/ML VIAL IM PRN (19:57)
[2017-04-20] MEDS ORDERED: diphenhydrAMINE 50 MG/ML VIAL IVP PRN (19:57)
[2017-04-20] MEDS ORDERED: Ondansetron HCl/PF 4 MG/2 ML Vial IVP PRN ×2 (19:57)
[2017-04-20] MEDS ORDERED: Promethazine HCl 25 MG/ML VIAL SLOW IVP PRN (19:57)
[2017-04-20] MEDS ORDERED: Zolpidem Tartrate 5 MG TAB PO PRN (19:57)
[2017-04-20] MEDS ORDERED: Naloxone HCl 0.4 mg/ml Vial IV PRN (19:57)
[2017-04-20] MEDS ORDERED: Promethazine HCl 25 MG/ML VIAL IM PRN ×2 (19:57)
[2017-04-20] MEDS ORDERED: diphenhydrAMINE 25 MG CAP PO PRN (19:57)
[2017-04-20] MEDS ORDERED: Communication Order-Pharmacy FS SCH (20:00)
[2017-04-20] MEDS ORDERED: Cepastat Lozenges 1 LOZ PO PRN (21:45)
[2017-04-20] MEDS ORDERED: Chloraseptic Spray 180 ml Bottle PO PRN (21:45)
[2017-04-20] MEDS ORDERED: HYDROcodone/Acetaminophen 7.5/325 mg Tablet PO PRN (21:46)
[2017-04-20] MEDS ORDERED: Morphine 5 MG/ML SYRINGE SLOW IVP PRN ×2 (21:48)
[2017-04-20] MEDS: Sodium Chloride 0.9% 1,000 ML IV SCH (22:29)
[2017-04-21] MEDS: Acetaminophen 1,000 MG in Premix Bag 1 BAG IVPB SCH ×4 (00:13→16:51)
[2017-04-21 04:24] LABS: #Lymphocytes 0.8 thou/uL (1.20-3.40); #Monocytes 0.1 thou/uL (0.11-0.59); #Neutrophils 3.6 thou/uL (1.40-6.50); %Basophils 0.3 % (0.0-1.0); %Eosinophils 0.1 % (0.0-10.0); %Lymphocytes 17.3 % (21.0-51.0); %Monocytes 2.5 % (0.0-10.0); %Neutrophils 79.8 % (42.0-75.0); Hemoglobin 9.7 g/dL (12.0-16.0); Mean Corpuscular HGB CONC 30.9 g/dL (32.0-36.0); Mean Corpuscular Hemoglobin 22.2 pg (27.0-31.0); Mean Corpuscular Volume 71.8 fl (81.0-99.0); Mean Platelet Volume 9.2 fL (7.4-10.4); Platelet Count 326 thou/uL (130-400); RBC Distribution Width 17.6 % (11.5-14.5); Red Blood Cell (RBC) Count 4.35 mill/uL (4.20-5.40); White Blood Cell (WBC) Count 4.6 thou/uL (4.8-10.8)
[2017-04-21 04:34] LABS: Anion Gap 11 mmol/L (10-20); BUN (Urea Nitrogen) 22 mg/dL (9.8-20.1); Calc. Creatinine Clearance 111 mL/min (70-130); Carbon Dioxide 24 mmol/L (22-29); Chloride 103 mmol/L (98-107); Estimated GFR-MDRD 85; Glucose 187 mg/dL (70-105); Sodium 135 mmol/L (136-145)
[2017-04-21] MEDS: Sodium Chloride 0.9% 1,000 ML IV SCH ×3 (06:28→20:16)
--- NOTE | 2017-04-21 11:41 | RAD ---
2 VIEWS ABDOMEN: Date: 04/21/17 HISTORY: Incarcerated hernia with obstruction. COMPARISON: CT abdomen dated 04/20/17. FINDINGS: Supine and upright views of the abdomen show a nonspecific, nonobstructed bowel gas pattern. A NG tub e is seen in the stomach. Cholecystectomy clips are seen. There are a few air fluid levels within the left colon on the upright examination. No free air is seen. Air is seen to the level of the rectum. IMPRESSION: Nonobstructive bowel gas pattern. POS: [facility]
[2017-04-21] MEDS: Famotidine/PF 20 mg/2ml Vial SLOW IVP SCH (12:24)
[2017-04-21 12:44] VITALS: BMI 28.7
[2017-04-21] MEDS ORDERED: Acetaminophen 325 MG TAB PO PRN ×2 (15:43)
[2017-04-21] MEDS ORDERED: Pantoprazole 40 MG VIAL IVP SCH (17:30)
--- NOTE | 2017-04-22 00:32 | PRG ---
DATE OF SERVICE: 04/21/2017 Ms. Capps is feeling better today, still having a lot of pain at the periumbilical incision. She has not passed gas, but she has had diarrhea. No nausea and she had about 500 of bilious fluid out overnight. Abdomen is soft with normal bowel sounds. Incisions are clean without erythema or fluctuance. She has appropriate serafin-incisional tenderness, but no diffuse abdominal tenderness. ASSESSMENT: Resolving bowel obstruction following repair of incarcerated ventral hernia. The patient is still on the AD SETTER and has an NG tube down, which has had a fair amount of output. I will check a KUB today. If it looks like her small-bowel obstruction has indeed resolved, we will get the NG tube and will start her on clear liquids. If she tolerates clears, we will advance her to fulls, and switch her to oral medications, weaning off her AD SETTER. Anticipate she will be ready for discharge by tomorrow. Her renal function has improved and her urine output has picked up. [facility]
[2017-04-22] MEDS: Ondansetron HCl/PF 4 MG/2 ML Vial SLOW IVP PRN ×2 (04:36→13:32)
[2017-04-22] MEDS: HYDROcodone/Acetaminophen 7.5/325 mg Tablet PO PRN ×2 (09:13→17:03)
[2017-04-22] MEDS: Famotidine/PF 20 mg/2ml Vial SLOW IVP SCH (13:32)
[2017-04-22 17:29] VITALS: BP 138/89; TEMP 97.8
--- NOTE | 2017-04-23 11:28 | DIS ---
DATE OF ADMISSION: 04/20/2017 DATE OF DISCHARGE: 04/22/2017 FINAL DIAGNOSES: Incarcerated obstructing ventral incisional hernia. PROCEDURES: Repair of incarcerated obstructing ventral incisional hernia on . HISTORY: Ms. Capps is a 56-year-old woman who underwent a laparoscopic cholecystectomy by Dr. Park 2 days prior to her presentation. She did well initially postoperatively, but then developed nausea, vomiting, and abdominal pain which was unrelenting and not relieved by her pain medication, so she came back to the emergency room and a CT revealed an obstructing incisional ventral hernia at the level of the umbilicus. She was taken immediately to the operating room for emergent repair. The bowel was viable and was simply reduced into the abdominal cavity and the fascial defect repaired with suture. Postoperatively, she required IV pain medication for pain management and still had a fair amount of bilious output from her NG tube, which was left in overnight. The following day, she had return of bowel function and her NG tube was able to be discontinued and her diet advanced. She was transitioned over to oral pain medicine and by the following day, she was ready for discharge. DISCHARGE MEDICATIONS: Include outpatient medications of Ambien, Prilosec, Zofran, and [place]. She is to follow up with Dr. Park or myself in 2 weeks for postoperative checkup and to refrain from any heavy lifting or straining for the next 2 weeks. [facility]
--- NOTE | 2017-04-23 11:28 | OP ---
DATE OF PROCEDURE: 04/20/2016 PROCEDURE: Repair of incarcerated obstructing ventral hernia. PREOPERATIVE DIAGNOSIS: Incarcerated obstructing ventral incisional hernia. POSTOPERATIVE DIAGNOSIS: Incarcerated obstructing ventral incisional hernia. HISTORY: Ms. Capps is a 56-year-old woman who presented to the emergency room with nausea, vomiting, abdominal pain shortly after a laparoscopic cholecystectomy. She was found on CT to have a loop of small intestine herniated through the umbilical incision which was unable to be reduced at the bedside. Recommendation was made to proceed emergently to the operating room for repair of incarcerated obstructing ventral hernia. OPERATIVE PROCEDURE IN DETAIL: After informed consent was obtained and appropriate preoperative antibiotics administered, the patient was taken to the operating room where she was placed in supine position and general endotracheal anesthesia was administered. She was prepped and draped in a standard sterile fashion. The previous umbilical incision reopened. Dissection was carried down through the subcutaneous tissues and a loop of bowel encountered. This was viable in appearance although somewhat congested. The bowel was herniating through the fascia at the level of the umbilicus. A fascial suture was identified and cut to allow enough laxity in the fascia to reduce the bowel back into the abdominal cavity. The fascia was then examined. This was found to be quite attenuated and fatty in quality. This was reapproximated with several interrupted [id number] 0 Vicryl sutures with good technical result. The wound was then irrigated and hemostasis verified. The skin was closed with 4-0 subcuticular Monocryl sutures and Dermabond dressings were placed. Patient was extubated and taken to the recovery room in good condition. Estimated blood loss was minimal. There were no complications. There were no specimens. [facility]
== END 2017-04-22 18:21 | disposition home or self-care (01) ==
LOC: ERS 11:52 → SDC/OP 18:14 → SURG A 19:45
PROVIDERS: ADMIT Surgery; ATTEND Surgery
PROC: 0WQF0ZZ Repair Abdominal Wall, Open Approach (ICD-10-PCS; principal; 2017-04-22)
DX: K43.6 Other and unspecified ventral hernia with obstruction, without gangrene (principal); Z79.899 Other long term (current) drug therapy; Z88.0 Allergy status to penicillin; Z98.51 Tubal ligation status; Z90.49 Acquired absence of other specified parts of digestive tract; Z87.891 Personal history of nicotine dependence
CPT/HCPCS: 36415; 71045; 74018; 74019; 74177; 80048; 80053; 81003; 81015; 82553; 83690; 84484; 85025; 93005; 96361; 96374; 96375; 96376; J2270; C9113; G0378; J0131; J1100; J1170; J1885; J2001; J2250; J2405; J2704; J3010; S0020; S0028

== ENCOUNTER 2017-06-16 18:19 | Emergency (ER) | payer SELFPAY | END 2017-06-16 19:06 | disposition home or self-care (01) | LOC: ERS 18:19 | DX: H92.01 Otalgia, right ear (principal); F32.9 Major depressive disorder, single episode, unspecified; Z87.891 Personal history of nicotine dependence | CPT/HCPCS: 99282 ==

== ENCOUNTER 2017-09-11 10:21 | Emergency (ER) | payer SELFPAY ==
[2017-09-11 11:18] LABS: #Eosinphils 0.1 thou/uL (0.0-0.7); #Lymphocytes 2.6 thou/uL (1.20-3.40); #Monocytes 0.4 thou/uL (0.11-0.59); %Basophils 0.7 % (0.0-1.0); %Eosinophils 1.7 % (0.0-10.0); %Lymphocytes 42.4 % (21.0-51.0); %Monocytes 6.6 % (0.0-10.0); %Neutrophils 48.7 % (42.0-75.0); Hemoglobin 13.5 g/dL (12.0-16.0); Mean Corpuscular HGB CONC 32.7 g/dL (32.0-36.0); Mean Corpuscular Hemoglobin 27.1 pg (27.0-31.0); Mean Corpuscular Volume 82.8 fL (78.0-98.0); Mean Platelet Volume 6.7 fL (7.4-10.4); Platelet Count 292 thou/uL (130-400); RBC Distribution Width 19.2 % (11.5-14.5); Red Blood Cell (RBC) Count 4.98 mill/uL (4.20-5.40); White Blood Cell (WBC) Count 6.2 thou/uL (4.8-10.8)
[2017-09-11 11:28] LABS: Bacteria/HPF Rare-Few HPF (None Seen); Hyaline Casts/LPF 0-3 HYALINE CAST LPF (0-3 Hyaline); Squamous Epithelial 0-3 HPF (0-3)
[2017-09-11 11:31] LABS: Bilirubin Negative (Negative); Blood, Urine Negative (Negative); Clarity CLEAR (Clear); Glucose, Urine (Dipstick) Negative (Negative); Leukocyte Small (Negative); Nitrite Negative (Negative); Protein, Urine (Dipstick) Negative (Neg-Trace); Specific Gravity, Urine 1.018 (1.002-1.036); Urobilinogen 0.2 mg/dL (0.2-1.0)
[2017-09-11 11:46] LABS: ALT (SGPT) 14 U/L (8-55); AST (SGOT) 19 U/L (5-34); Alkaline Phosphatase 89 U/L (40-150); Anion Gap 13 mmol/L (10-20); BUN (Urea Nitrogen) 13 mg/dL (9.8-20.1); Bilirubin, Total 0.3 mg/dL (0.2-1.2); Calc. Creatinine Clearance 0 mL/min (70-130); Calcium 9.5 mg/dL (7.8-10.44); Carbon Dioxide 24 mmol/L (22-29); Chloride 102 mmol/L (98-107); Estimated GFR-MDRD 85; Globulin 3.8 g/dL (2.4-3.5); Glucose 181 mg/dL (70-105); Protein, Total 7.8 g/dL (6.0-8.3); Sodium 135 mmol/L (136-145)
[2017-09-11] MEDS ORDERED: Azithromycin 250 MG TAB ONE (12:19)
[2017-09-11] MEDS ORDERED: cefTRIAXone\\ROCEPHIN 250 MG VIAL ONE (12:19)
[2017-09-11] MEDS ORDERED: Lidocaine 1% PF 5 ML VIAL ONE (12:20)
== END 2017-09-11 12:52 | disposition home or self-care (01) ==
LOC: ERS 10:21
DX: N39.0 Urinary tract infection, site not specified (principal); F32.9 Major depressive disorder, single episode, unspecified; Z87.891 Personal history of nicotine dependence; Z79.899 Other long term (current) drug therapy
CPT/HCPCS: 36415; 80053; 81003; 81015; 85025; 87086; 96372; J0696; J2001

== ENCOUNTER 2017-09-30 09:11 | Emergency (ER) | payer SELFPAY ==
--- NOTE | 2017-09-30 11:59 | RAD ---
4 VIEW LEFT KNEE: Date: 09/30/17 INDICATION: Left knee pain. FINDINGS: Reference made to 06/24/07 exam. No fracture or dislocation. No joint capsular distention. There is mild osteoarthritis. IMPRESSION: No acute osseous abnormality of the left knee. POS: [facility]
[2017-09-30] MEDS ORDERED: Ketorolac Tromethamine 30 MG/ML VIAL ONE (13:40)
== END 2017-09-30 14:05 | disposition home or self-care (01) ==
LOC: ERS 09:11
DX: M17.12 Unilateral primary osteoarthritis, left knee (principal); F32.9 Major depressive disorder, single episode, unspecified; Z87.891 Personal history of nicotine dependence
CPT/HCPCS: 96372; J1885

== ENCOUNTER 2018-07-17 11:12 | Emergency (ER) | payer SELFPAY ==
[2018-07-17 11:43] LABS: Base Excess-Venous 0.1 mmol/L (-2.0 to 3.0); Bicarbonate (HCO3v) 24.9 mmol/L (22.0-28.0); CO2 Tension (PvCO2) 40.4 mmHg (40.0-50.0); Calcium, Ionized 1.19 mmol/L (See Comments:); Chloride 102 mmol/L (98-107); Hemoglobin - Calc 15.2 g/dL (12.0-16.0); O2 Tension (PvO2) 62.6 mmHg (35.0-45.0); Potassium 4.1 mmol/L (3.5-5.1); Sodium 135 mmol/L (138-145); T. Carbon Dioxide 26.2 mmol/L (22.0-28.0); pH (Venous) 7.398 (7.320-7.430); vO2 Saturation-calc 91.6 % (60.0-85.0)
[2018-07-17 11:56] LABS: #Basophils 0.1 thou/uL (0.0-0.2); #Eosinphils 0.2 thou/uL (0.0-0.7); #Lymphocytes 1.8 thou/uL (1.20-3.40); #Monocytes 0.5 thou/uL (0.11-0.59); #Neutrophils 4.3 thou/uL (1.40-6.50); %Basophils 0.8 % (0.0-1.0); %Eosinophils 2.2 % (0.0-10.0); %Lymphocytes 26.4 % (21.0-51.0); %Monocytes 7.3 % (0.0-10.0); %Neutrophils 63.3 % (42.0-75.0); Hemoglobin 13.2 g/dL (12.0-16.0); Mean Corpuscular HGB CONC 32.2 g/dL (32.0-36.0); Mean Corpuscular Volume 83.9 fL (78.0-98.0); Mean Platelet Volume 7.3 fL (7.4-10.4); Platelet Count 282 thou/uL (130-400); RBC Distribution Width 14.5 % (11.5-14.5); Red Blood Cell (RBC) Count 4.89 mill/uL (4.20-5.40); White Blood Cell (WBC) Count 6.8 thou/uL (4.8-10.8)
[2018-07-17 12:03] LABS: Bilirubin Negative (Negative); Blood, Urine Negative (Negative); Clarity CLEAR (Clear); Glucose, Urine (Dipstick) >=1000 mg/dL (Negative); Leukocyte Negative (Negative); Nitrite Negative (Negative); Protein, Urine (Dipstick) Negative (Neg-Trace); Specific Gravity, Urine 1.036 (1.002-1.036); Urobilinogen 0.2 mg/dL (0.2-1.0)
[2018-07-17 12:17] LABS: ALT (SGPT) 15 U/L (8-55); AST (SGOT) 14 U/L (5-34); Albumin 3.9 g/dL (3.5-5.0); Alkaline Phosphatase 110 U/L (40-150); Anion Gap 15 mmol/L (10-20); BUN (Urea Nitrogen) 12 mg/dL (9.8-20.1); Bilirubin, Total 0.4 mg/dL (0.2-1.2); Calc. Creatinine Clearance 0 mL/min (70-130); Calcium 9.4 mg/dL (7.8-10.44); Carbon Dioxide 23 mmol/L (22-29); Chloride 100 mmol/L (98-107); Estimated GFR-MDRD 77; Globulin 3.5 g/dL (2.4-3.5); Glucose 455 mg/dL (70-105); Potassium 4.2 mmol/L (3.5-5.1); Protein, Total 7.4 g/dL (6.0-8.3); Sodium 134 mmol/L (136-145)
[2018-07-17 12:42] LABS: Amphetamine Not Detected (NotDetected); Barbiturates Screen Not Detected (NotDetected); Benzodiazepine Screen Not Detected (NotDetected); Cocaine Metabolite Screen Not Detected (NotDetected); Medtox Control Line Valid? VALID (VALID); Medtox Reader # READER 1; Methadone Not Detected (NotDetected); Methamphetamine Not Detected (NotDetected); Opiate Screen Not Detected (NotDetected); Oxycodone Screen Not Detected (NotDetected); Phencyclidine (PCP) Not Detected (NotDetected); THC/Cannabinoid Screen Not Detected (NotDetected); Tricyclic Screen Not Detected (NotDetected)
[2018-07-17 12:44] LABS: Acetaminophen Less than 6.0 mcg/mL (10.0-30.0); Alcohol Less than 10 mg/dL (Less than 10); Salicylate Less than 8.0 mg/dL (15.0-30.0)
[2018-07-17] MEDS ORDERED: Acetaminophen 500 MG TAB ONE (14:24)
[2018-07-17] MEDS ORDERED: Insulin Regular 300 UNITS/3 ML VIAL ONE ×2 (14:24→16:57)
== END 2018-07-17 20:09 | disposition short-term general hospital (02) ==
LOC: ERS 11:12
DX: F32.9 Major depressive disorder, single episode, unspecified (principal); M19.90 Unspecified osteoarthritis, unspecified site; Z87.891 Personal history of nicotine dependence
CPT/HCPCS: 36416; 80053; 80306; 80307; 81003; 82010; 82330; 82803; 84443; 85025; 93005; 96361; 96374; J1815

== ENCOUNTER 2019-06-24 10:39 | Emergency (ER) | payer OTHER | END 2019-06-24 11:27 | disposition home or self-care (01) | LOC: ERS 10:39 | DX: J02.9 Acute pharyngitis, unspecified (principal); R19.7 Diarrhea, unspecified; R05 Cough; E11.9 Type 2 diabetes mellitus without complications; M19.90 Unspecified osteoarthritis, unspecified site; F32.9 Major depressive disorder, single episode, unspecified; Z87.891 Personal history of nicotine dependence | CPT/HCPCS: 99284; U0001 ==

== ENCOUNTER 2020-02-21 10:26 | Emergency (ER) | payer SELFPAY ==
[~2020-02-21 10:26] MED LIST: Iopamidol 370 76% 100 ML VIAL ONE; Iopamidol 370 76% 50 ML VIAL FS ONE
[2020-02-21 11:14] LABS: #Basophils 0.1 thou/uL (0.0-0.2); #Eosinphils 0.1 thou/uL (0.0-0.7); #Lymphocytes 2.8 thou/uL (1.20-3.40); #Monocytes 0.5 thou/uL (0.11-0.59); #Neutrophils 6.2 thou/uL (1.40-6.50); %Basophils 0.9 % (0.0-1.0); %Eosinophils 1.4 % (0.0-10.0); %Lymphocytes 28.6 % (21.0-51.0); %Monocytes 5.5 % (0.0-10.0); %Neutrophils 63.6 % (42.0-75.0); Hemoglobin 13.2 g/dL (12.0-16.0); Mean Corpuscular HGB CONC 32.3 g/dL (32.0-36.0); Mean Corpuscular Volume 80.3 fL (78.0-98.0); Platelet Count 322 thou/uL (130-400); RBC Distribution Width 15.4 % (11.5-14.5); Red Blood Cell (RBC) Count 5.09 mill/uL (4.20-5.40); White Blood Cell (WBC) Count 9.8 thou/uL (4.8-10.8)
[2020-02-21] MEDS ORDERED: Ondansetron PF 4 MG/2 ML Vial ONE (11:14)
[2020-02-21] MEDS ORDERED: Morphine 4 MG/ML VIAL ONE (11:14)
[2020-02-21 11:15] LABS: Bacteria/HPF None Seen HPF (None Seen); Bilirubin Negative (Negative); Blood, Urine Negative (Negative); Clarity Clear (Clear); Glucose, Urine (Dipstick) Greater than 1000 mg/dL (Negative); Ketone, Urine 20 mg/dL (Negative); Leukocyte Negative Leu/uL (Negative); Mucous/LPF 1+ LPF (<2+); Nitrite Negative (Negative); Protein, Urine (Dipstick) 30 mg/dL (Neg-Trace); RBC/HPF 0-3 HPF (0-3); Specific Gravity, Urine 1.035 (1.002-1.036); Urobilinogen Normal mg/dL (Less than 2)
[2020-02-21] MEDS ORDERED: Pantoprazole 40 MG VIAL ONE ×2 (11:23→12:27)
[2020-02-21 11:37] LABS: ALT (SGPT) 11 U/L (8-55); AST (SGOT) 15 U/L (5-34); Albumin 3.9 g/dL (3.5-5.0); Alkaline Phosphatase 87 U/L (40-110); Anion Gap 16 mmol/L (10-20); BUN (Urea Nitrogen) 15 mg/dL (9.8-20.1); Bilirubin, Total 0.6 mg/dL (0.2-1.2); Calc. Creatinine Clearance 0 mL/min (70-130); Calcium 8.9 mg/dL (7.8-10.44); Carbon Dioxide 21 mmol/L (22-29); Chloride 103 mmol/L (98-107); Globulin 3.1 g/dL (2.4-3.5); Glucose 358 mg/dL (70-105); Potassium 3.8 mmol/L (3.5-5.1); Sodium 136 mmol/L (136-145)
--- NOTE | 2020-02-21 14:39 | CT ---
EXAM: CT ABDOMEN AND PELVIS HISTORY: Abdominal pain. Evaluate for bowel obstruction. Diarrhea. Nausea and vomiting. COMPARISON: 01/15/2020 Procedure: Multiple contiguous axial images were obtained and a CT of the abdomen and pelvis with IV contrast. C oronal reformats were performed. FINDINGS: Lower Chest: within normal limits. Vessels: Normal caliber aorta. No periaortic fat stranding Heart: Normal heart size. Minimal coronary calcifications Abdomen: Portal vein:Patent Gallbladder: Surgically absent Liver: Diffuse hypoattenuation due to hepatic steatosis. No enhancing masses within the liver Pancreas: within normal limits. Spleen: within normal limits. Adrenals: within normal limits. Kidneys: Symmetric enhancement. No obstructive uropathy. Stable hypodensity in the left renal cortex. Peritoneum: No ascites or free air, no fluid collection. Bowel: Moderate hiatal hernia. Gastric mucosa, duodenum and small bowel loops have a normal caliber. Normal ileocecal junction. Caliber appendix. Colon is decompressed. Diverticulosis with associated mild diverticulitis in the sigmoid colon. No perforation or abscess. Mesentery and Retroperitoneum: No enlarged mesenteric or retroperitoneal lymph nodes. Abdominal Wall: Ventral abdominal wall hernia containing mesenteric fat and segments of small bowel. No evidence of bowel incarceration. Hernia defect measures 3.5 cm. There is a second umbilical hernia containing mesenteric fat. Pelvis: Reproductive Organs: Reproductive organs are unremarkable. Pelvis: No mass, lymphadenopathy, free air or free fluid. Bladder: within normal limits. Bones: within normal limits. IMPRESSION: 1. Diverticulitis without evidence of perforation or abscess. 2. Ventral abdominal wall hernia with mesenteric fat and small bowel loops. No associated bowel incar ceration or obstruction. 3. Moderate hiatal hernia.
[2020-02-21] MEDS ORDERED: HYDROcodone/Acetaminophen 5/325 mg Tablet ONE (15:06)
--- NOTE | 2020-02-26 09:37 | EKG ---
Test Reason : Blood Pressure : / mmHG Vent. Rate : 105 BPM Atrial Rate : 105 BPM P-R Int : 132 ms QRS Dur : 070 ms QT Int : 364 ms P-R-T Axes : 033 -31 023 degrees QTc Int : 481 ms Sinus tachycardia Possible Left atrial enlargement Left axis deviation Left ventricular hypertrophy Abnormal ECG Confirmed by BRIAN CARLIN DO ([id number]), medical editor JUAN PARSONS ([id number]) on 02/26/2020 9:37:02 AM Referred By: Confirmed By:BRIAN CARLIN DO
== END 2020-02-21 15:17 | disposition home or self-care (01) ==
LOC: ERS 10:26
DX: K57.92 Diverticulitis of intestine, part unspecified, without perforation or abscess without bleeding (principal); K43.9 Ventral hernia without obstruction or gangrene; E11.9 Type 2 diabetes mellitus without complications; M19.90 Unspecified osteoarthritis, unspecified site; Z87.891 Personal history of nicotine dependence; Z79.84 Long term (current) use of oral hypoglycemic drugs
CPT/HCPCS: 74177; 80053; 81003; 81015; 82274; 83690; 85025; 93005; 96365; 96375; C9113; J2270; J2405; Q9967

== ENCOUNTER 2020-03-08 10:31 | Emergency (ER) | payer SELFPAY ==
[2020-03-08 18:19] LABS: SARS-CoV-2 MS2 Positive; SARS-CoV-2 N Gene Negative; SARS-CoV-2 S Gene Negative; SARS-CoV-2 by NAA Not Detected (NotDetected); SARS-CoV-2 orf1ab Negative
== END 2020-03-08 10:52 | disposition home or self-care (01) ==
LOC: ERS 10:31
DX: M79.10 Myalgia, unspecified site (principal); Z20.828 Contact with and (suspected) exposure to other viral communicable diseases; E11.9 Type 2 diabetes mellitus without complications; M19.90 Unspecified osteoarthritis, unspecified site; Z87.891 Personal history of nicotine dependence; Z79.84 Long term (current) use of oral hypoglycemic drugs
CPT/HCPCS: 87635; 87804; 99283; U0003

== ENCOUNTER 2020-05-04 12:53 | Emergency (ER) | payer SELFPAY | END 2020-05-04 14:13 | disposition home or self-care (01) | LOC: ERS 12:53 | DX: S80.01XA Contusion of right knee, initial encounter (principal); W19.XXXA Unspecified fall, initial encounter | CPT/HCPCS: 99281 ==

== ENCOUNTER 2020-07-20 06:25 | Emergency (ER) | payer SELFPAY ==
[2020-07-20] MEDS ORDERED: Ondansetron PF 4 MG/2 ML Vial ONE (06:45)
[2020-07-20] MEDS ORDERED: Morphine 4 MG/ML VIAL ONE (06:50)
[2020-07-20] MEDS ORDERED: Lidocaine Viscous Sol 2% 15 ml UD Cup ONE (07:11)
[2020-07-20] MEDS ORDERED: Mag-Al 1200 mg/1200 mg/30 ML UDCUP ONE (07:11)
[2020-07-20 07:14] LABS: #Eosinphils 0.3 thou/uL (0.0-0.7); #Lymphocytes 2.2 thou/uL (1.20-3.40); #Monocytes 0.4 thou/uL (0.11-0.59); #Neutrophils 2.6 thou/uL (1.40-6.50); %Basophils 0.8 % (0.0-1.0); %Eosinophils 4.9 % (0.0-10.0); %Lymphocytes 39.2 % (21.0-51.0); %Neutrophils 47.1 % (42.0-75.0); Hemoglobin 10.8 g/dL (12.0-16.0); Mean Corpuscular HGB CONC 31.8 g/dL (32.0-36.0); Mean Corpuscular Hemoglobin 24.5 pg (27.0-31.0); Mean Corpuscular Volume 77.2 fL (78.0-98.0); Mean Platelet Volume 7.4 fL (7.4-10.4); Platelet Count 340 thou/uL (130-400); RBC Distribution Width 15.7 % (11.5-14.5); White Blood Cell (WBC) Count 5.5 thou/uL (4.8-10.8)
[2020-07-20 07:25] LABS: Bilirubin Negative (Negative); Blood, Urine Negative (Negative); Clarity Clear (Clear); Glucose, Urine (Dipstick) Greater than 1000 mg/dL (Negative); Ketone, Urine Negative (Negative); Leukocyte Negative Leu/uL (Negative); Nitrite Negative (Negative); Protein, Urine (Dipstick) 10 mg/dL (Neg-Trace); Specific Gravity, Urine 1.034 (1.002-1.036); Urobilinogen Normal mg/dL (Less than 2)
[2020-07-20 07:30] LABS: ALT (SGPT) 14 U/L (8-55); AST (SGOT) 15 U/L (5-34); Albumin 4.2 g/dL (3.5-5.0); Alkaline Phosphatase 136 U/L (40-110); Anion Gap 16 mmol/L (10-20); BUN (Urea Nitrogen) 15 mg/dL (9.8-20.1); Bilirubin, Total 0.3 mg/dL (0.2-1.2); Calc. Creatinine Clearance 0 mL/min (70-130); Calcium 9.7 mg/dL (7.8-10.44); Carbon Dioxide 22 mmol/L (22-29); Chloride 102 mmol/L (98-107); Glucose 352 mg/dL (70-105); Potassium 4.1 mmol/L (3.5-5.1); Protein, Total 8.2 g/dL (6.0-8.3); Sodium 136 mmol/L (136-145)
[2020-07-20] MEDS ORDERED: Lorazepam 2 MG/ML VIAL ONE (08:09)
[2020-07-20] MEDS ORDERED: Fentanyl 100 MCG/2 ML VIAL ONE (08:41)
== END 2020-07-20 09:16 | disposition home or self-care (01) ==
LOC: ERS 06:25
DX: K44.9 Diaphragmatic hernia without obstruction or gangrene (principal); K42.9 Umbilical hernia without obstruction or gangrene; Z79.84 Long term (current) use of oral hypoglycemic drugs; E11.9 Type 2 diabetes mellitus without complications; M19.90 Unspecified osteoarthritis, unspecified site; I10 Essential (primary) hypertension
CPT/HCPCS: 71045; 74177; 80053; 81003; 83690; 84484; 85025; 93005; 94760; 96374; 96375; J2060; J2270; J2405; J3010

== ENCOUNTER 2021-05-07 10:57 | Emergency (ER) | payer SELFPAY ==
[2021-05-07] MEDS ORDERED: HYDROcodone/Acetaminophen 7.5/325 mg Tablet ONE (11:36)
== END 2021-05-07 12:08 | disposition home or self-care (01) ==
LOC: ERS 10:57
DX: M25.562 Pain in left knee (principal)

== ENCOUNTER 2021-06-26 12:14 | Emergency (ER) | payer MEDICAID, SELFPAY ==
[2021-06-26] MEDS ORDERED: Morphine 4 MG/ML VIAL ONE ×2 (12:46→14:43)
[2021-06-26 13:05] LABS: #Basophils 0.1 thou/uL (0.0-0.2); #Eosinphils 0.2 thou/uL (0.0-0.7); #Lymphocytes 1.7 thou/uL (1.20-3.40); #Monocytes 0.5 thou/uL (0.11-0.59); #Neutrophils 3.3 thou/uL (1.40-6.50); %Basophils 1.3 % (0.0-1.0); %Eosinophils 4.2 % (0.0-10.0); %Monocytes 8.7 % (0.0-10.0); %Neutrophils 56.8 % (42.0-75.0); Hemoglobin 11.6 g/dL (12.0-16.0); Mean Corpuscular HGB CONC 31.4 g/dL (32.0-36.0); Mean Corpuscular Hemoglobin 25.3 pg (27.0-31.0); Mean Corpuscular Volume 80.6 fL (78.0-98.0); Mean Platelet Volume 6.9 fL (7.4-10.4); Platelet Count 313 thou/uL (130-400); RBC Distribution Width 15.8 % (11.5-14.5); White Blood Cell (WBC) Count 5.8 thou/uL (4.8-10.8)
[2021-06-26 13:33] LABS: ALT (SGPT) 11 U/L (8-55); AST (SGOT) 10 U/L (5-34); Alkaline Phosphatase 137 U/L (40-110); Anion Gap 13 mmol/L (10-20); BUN (Urea Nitrogen) 13 mg/dL (9.8-20.1); Bilirubin, Total 0.3 mg/dL (0.2-1.2); Calc. Creatinine Clearance 0 mL/min (70-130); Calcium 9.3 mg/dL (7.8-10.44); Carbon Dioxide 22 mmol/L (23-31); Chloride 104 mmol/L (98-107); Globulin 3.9 g/dL (2.4-3.5); Glucose 437 mg/dL (80-115); Potassium 4.1 mmol/L (3.5-5.1); Protein, Total 7.9 g/dL (5.8-8.1); Sodium 135 mmol/L (136-145)
[2021-06-26] MEDS ORDERED: Ondansetron PF 4 MG/2 ML Vial ONE (13:33)
[2021-06-26] MEDS ORDERED: Boostrix 0.5 ML (Tdap) VIAL ONE (13:44)
[2021-06-26] MEDS ORDERED: Rabies Immune Globulin 1500 UNITS/10 ML VIAL IM SCH (14:00)
[2021-06-26] MEDS ORDERED: Cefepime 2 GM in Sodium Chloride 0.9% 100 ML IVPB SCH (14:00)
[2021-06-26] MEDS ORDERED: Vancomycin HCl 1 GM in Sodium Chloride 0.9% 250 ML 250 ML IVPB SCH (14:00)
[2021-06-26] MEDS ORDERED: Rabies Vaccine Human 2.5 UNITS VIAL IM ONE (14:00)
[2021-06-26] MEDS ORDERED: Cefepime 2 GM VIAL ONE (14:06)
[2021-06-26 14:47] LABS: SARS-CoV-2 NAA Rapid Test Not Detected (NotDetected)
[2021-06-26] MEDS ORDERED: Acetaminophen 500 MG TAB ONE (16:52)
== END 2021-06-26 16:57 | disposition short-term general hospital (02) ==
LOC: ERS 12:14
DX: M00.9 Pyogenic arthritis, unspecified (principal); E11.9 Type 2 diabetes mellitus without complications; M19.90 Unspecified osteoarthritis, unspecified site; Z23 Encounter for immunization; Z20.822 Contact with and (suspected) exposure to COVID-19; Z87.19 Personal history of other diseases of the digestive system
CPT/HCPCS: 36415; 36416; 80053; 85025; 86140; 87040; 90375; 90376; 90471; 90675; 90715; 93005; 96365; 96367; 96372; 96375; 96376; J0692; J2270; J2405; J3370; J7050; U0002

== ENCOUNTER 2021-09-17 13:06 | Emergency (ER) | payer OTHER, MEDICAID | END 2021-09-17 15:42 | disposition home or self-care (01) | LOC: ERS 13:06 | DX: S80.02XA Contusion of left knee, initial encounter (principal); W01.0XXA Fall on same level from slipping, tripping and stumbling without subsequent striking against object, initial encounter; Y93.E9 Activity, other interior property and clothing maintenance ==

== ENCOUNTER 2021-10-07 11:04 | Emergency (ER) | payer MEDICAID, OTHER ==
[2021-10-07] MEDS ORDERED: Lidocaine 1% PF 5 ML VIAL ONE (12:07)
== END 2021-10-07 13:20 | disposition home or self-care (01) ==
LOC: ERS 11:04
DX: L03.811 Cellulitis of head [any part, except face] (principal); L02.811 Cutaneous abscess of head [any part, except face]; E11.9 Type 2 diabetes mellitus without complications

== ENCOUNTER 2021-10-22 09:47 | Emergency (ER) | payer MEDICAID, OTHER ==
[2021-10-22] MEDS ORDERED: Ketorolac Tromethamine 30 MG/ML VIAL ONE (11:14)
[2021-10-22] MEDS ORDERED: hydrOXYzine 25 MG TAB ONE (11:14)
== END 2021-10-22 11:20 | disposition home or self-care (01) ==
LOC: ERS 09:47
DX: S20.212A Contusion of left front wall of thorax, initial encounter (principal); L02.811 Cutaneous abscess of head [any part, except face]; W19.XXXA Unspecified fall, initial encounter
CPT/HCPCS: 71046; 96372; J1885

== ENCOUNTER 2021-11-11 14:18 | Emergency (ER) | payer OTHER ==
[~2021-11-11 14:18] MED LIST changes: -Iopamidol 370 76% 100 ML VIAL ONE; -Iopamidol 370 76% 50 ML VIAL FS ONE; +Iopamidol-370 76% 500 ML 1 ML ONE
[2021-11-11 14:48] LABS: #Basophils 0.1 thou/uL (0.0-0.2); #Eosinphils 0.2 thou/uL (0.0-0.7); #Lymphocytes 2.4 thou/uL (1.20-3.40); #Monocytes 0.5 thou/uL (0.11-0.59); %Basophils 0.9 % (0.0-1.0); %Eosinophils 2.4 % (0.0-10.0); %Lymphocytes 29.3 % (21.0-51.0); %Monocytes 6.5 % (0.0-10.0); %Neutrophils 60.9 % (42.0-75.0); Hemoglobin 14.4 g/dL (12.0-16.0); Mean Corpuscular HGB CONC 33.8 g/dL (32.0-36.0); Mean Corpuscular Hemoglobin 30.5 pg (27.0-31.0); Mean Platelet Volume 6.5 fL (7.4-10.4); Platelet Count 308 thou/uL (130-400); RBC Distribution Width 13.5 % (11.5-14.5); Red Blood Cell (RBC) Count 4.73 mill/uL (4.20-5.40); White Blood Cell (WBC) Count 8.2 thou/uL (4.8-10.8)
[2021-11-11] MEDS ORDERED: Lidocaine Viscous Sol 2% 15 ml UD Cup ONE (14:57)
[2021-11-11] MEDS ORDERED: Ondansetron PF 4 MG/2 ML Vial ONE (14:58)
[2021-11-11] MEDS ORDERED: Mag-Al 1200 mg/1200 mg/30 ML UDCUP ONE (14:58)
[2021-11-11 15:07] LABS: ALT (SGPT) 14 U/L (8-55); AST (SGOT) 12 U/L (5-34); Albumin 3.4 g/dL (3.4-4.8); Alkaline Phosphatase 85 U/L (40-110); Anion Gap 16 mmol/L (10-20); BUN (Urea Nitrogen) 18 mg/dL (9.8-20.1); Bilirubin, Total 0.2 mg/dL (0.2-1.2); Calc. Creatinine Clearance 0 mL/min (70-130); Calcium 8.9 mg/dL (7.8-10.44); Carbon Dioxide 20 mmol/L (23-31); Chloride 107 mmol/L (98-107); Estimated GFR 75; Globulin 3.3 g/dL (2.4-3.5); Glucose 233 mg/dL (80-115); Lipase 31 U/L (8-78); Potassium 3.9 mmol/L (3.5-5.1); Protein, Total 6.7 g/dL (5.8-8.1); Sodium 139 mmol/L (136-145)
[2021-11-11 16:21] LABS: Bilirubin Negative (Negative); Blood, Urine Negative (Negative); Clarity Clear (Clear); Glucose, Urine (Dipstick) Greater than 1000 mg/dL (Negative); Ketone, Urine Negative (Negative); Leukocyte Negative Leu/uL (Negative); Nitrite Negative (Negative); Protein, Urine (Dipstick) Negative (Neg-Trace)
== END 2021-11-11 17:40 | disposition home or self-care (01) ==
LOC: ERS 14:18
DX: S22.32XA Fracture of one rib, left side, initial encounter for closed fracture (principal); R16.0 Hepatomegaly, not elsewhere classified; K43.9 Ventral hernia without obstruction or gangrene; I10 Essential (primary) hypertension; E10.9 Type 1 diabetes mellitus without complications; X58.XXXA Exposure to other specified factors, initial encounter; Z79.84 Long term (current) use of oral hypoglycemic drugs; Z79.899 Other long term (current) drug therapy
CPT/HCPCS: 36415; 74177; 80053; 81003; 83690; 85025; 96374; J2405; Q9967

== ENCOUNTER 2022-02-20 07:56 | Emergency (ER) | payer OTHER ==
[2022-02-20 09:01] LABS: #Basophils 0.1 thou/uL (0.0-0.2); #Eosinphils 0.2 thou/uL (0.0-0.7); #Lymphocytes 1.8 thou/uL (1.20-3.40); #Monocytes 0.4 thou/uL (0.11-0.59); #Neutrophils 2.8 thou/uL (1.40-6.50); %Basophils 1.3 % (0.0-1.0); %Eosinophils 3.4 % (0.0-10.0); %Monocytes 7.5 % (0.0-10.0); %Neutrophils 52.8 % (42.0-75.0); Hemoglobin 13.2 g/dL (12.0-16.0); Mean Corpuscular HGB CONC 32.3 g/dL (32.0-36.0); Mean Corpuscular Hemoglobin 29.6 pg (27.0-31.0); Mean Corpuscular Volume 91.7 fl (78.0-98.0); Mean Platelet Volume 6.1 fL (7.4-10.4); Platelet Count 317 10x3/uL (130-400); RBC Distribution Width 12.4 % (11.5-14.5); Red Blood Cell (RBC) Count 4.45 mill/uL (4.20-5.40); White Blood Cell (WBC) Count 5.2 10x3/uL (4.8-10.8)
[2022-02-20 09:24] LABS: ALT (SGPT) 16 U/L (8-55); AST (SGOT) 14 U/L (5-34); Albumin 3.9 g/dL (3.4-4.8); Alkaline Phosphatase 97 U/L (40-110); Anion Gap 11 mmol/L (10-20); BUN (Urea Nitrogen) 8 mg/dL (9.8-20.1); Bilirubin, Total 0.5 mg/dL (0.2-1.2); Calc. Creatinine Clearance 0 mL/min (70-130); Calcium 8.7 mg/dL (7.8-10.44); Carbon Dioxide 20 mmol/L (23-31); Chloride 107 mmol/L (98-107); Estimated GFR 101; Globulin 3.2 g/dL (2.4-3.5); Glucose 324 mg/dL (80-115); Potassium 3.6 mmol/L (3.5-5.1); Protein, Total 7.1 g/dL (5.8-8.1); Sodium 134 mmol/L (136-145)
[2022-02-20] MEDS ORDERED: Ketorolac Tromethamine 30 MG/ML VIAL ONE (10:38)
[2022-02-20 11:05] LABS: Bilirubin Negative (Negative); Blood, Urine Negative (Negative); Clarity Clear (Clear); Glucose, Urine (Dipstick) Greater than 1000 mg/dL (Negative); Ketone, Urine Negative (Negative); Leukocyte Negative Leu/uL (Negative); Nitrite Negative (Negative); Protein, Urine (Dipstick) Negative (Neg-Trace); Specific Gravity, Urine 1.033 (1.002-1.036); Urobilinogen Normal mg/dL (Less than 2); pH, Urine 6.5 (5.0-9.0)
[2022-02-20 11:33] LABS: SARS-CoV-2 NAA Rapid Test Not Detected (NotDetected)
== END 2022-02-20 13:05 | disposition home or self-care (01) ==
LOC: ERS 07:56
DX: J45.901 Unspecified asthma with (acute) exacerbation (principal); J06.9 Acute upper respiratory infection, unspecified; E10.9 Type 1 diabetes mellitus without complications; I10 Essential (primary) hypertension; Z20.822 Contact with and (suspected) exposure to COVID-19; Z79.899 Other long term (current) drug therapy
CPT/HCPCS: 36415; 71045; 80053; 81003; 84484; 85025; 93005; 94640; 96374; J1885; J7620

== ENCOUNTER 2022-06-19 07:42 | Inpatient (IN) | payer OTHER ==
[2022-06-19] MEDS ORDERED: methylPREDNISolone Sod Succ/PF 125 MG/2 ML VIAL ONE (08:25)
[2022-06-19] MEDS ORDERED: Meclizine HCl 25 MG TAB ONE (08:25)
[2022-06-19 08:27] LABS: Mean Corpuscular HGB CONC 32.5 g/dL (32.0-36.0); Mean Corpuscular Hemoglobin 28.6 pg (27.0-31.0); Mean Corpuscular Volume 88.2 fl (78.0-98.0); Mean Platelet Volume 6.1 fL (7.4-10.4); Platelet Count 343 10x3/uL (130-400); RBC Distribution Width 15.6 % (11.5-14.5); White Blood Cell (WBC) Count 14.7 10x3/uL (4.8-10.8)
[2022-06-19] MEDS ORDERED: VANCOMYCIN 2 GRAM/500 ML BAG 2 GM in Premix Bag 1 BAG IVPB SCH (08:30)
[2022-06-19] MEDS ORDERED: Aztreonam 2 GM in Sodium Chloride 0.9% 100 ML IVPB SCH (08:30)
[2022-06-19 08:32] LABS: Bacteria/HPF None Seen HPF (None Seen); Bilirubin Negative (Negative); Blood, Urine Negative (Negative); Clarity Clear (Clear); Glucose, Urine (Dipstick) 150 mg/dL (Negative); Ketone, Urine Negative (Negative); Leukocyte 25 Leu/uL (Negative); Nitrite Negative (Negative); Protein, Urine (Dipstick) 10 mg/dL (Neg-Trace); RBC/HPF 0-3 HPF (0-3); Specific Gravity, Urine 1.016 (1.002-1.036); Urobilinogen 3 mg/dL (Less than 2)
[2022-06-19 08:36] LABS: INR-International Normal Ratio 0.9; PTT 25.6 sec (22.9-36.1); Prothrombin Time 12.1 sec (12.0-14.7)
[2022-06-19 08:43] LABS: ALT (SGPT) 16 U/L (8-55); AST (SGOT) 19 U/L (5-34); Albumin 3.7 g/dL (3.4-4.8); Alkaline Phosphatase 85 U/L (40-110); Anion Gap 15 mmol/L (10-20); BUN (Urea Nitrogen) 7 mg/dL (9.8-20.1); Bilirubin, Total 0.5 mg/dL (0.2-1.2); Calc. Creatinine Clearance 0 mL/min (70-130); Carbon Dioxide 22 mmol/L (23-31); Chloride 104 mmol/L (98-107); Estimated GFR 100; Globulin 3.7 g/dL (2.4-3.5); Glucose 211 mg/dL (80-115); Lipase 9 U/L (8-78); Magnesium 1.3 mg/dL (1.6-2.6); Potassium 3.7 mmol/L (3.5-5.1); Protein, Total 7.4 g/dL (5.8-8.1); Sodium 137 mmol/L (136-145)
[2022-06-19 08:46] LABS: Band 15 % (5-11); Eosinophils 1 % (0-10); Lymphocytes 8 % (21-51); MDiff Complete? YES; Monocytes 1 % (0-10); Neutrophil 75 % (42-75); RBC Morphology Normal
[2022-06-19 08:58] LABS: SARS-CoV-2 NAA Rapid Test Not Detected (NotDetected)
[2022-06-19] MEDS ORDERED: Ibuprofen 200 MG TAB ONE (10:01)
[2022-06-19] MEDS ORDERED: Magnesium 2 GM/50 ML BAG (IN WATER) ONE (10:31)
[2022-06-19] MEDS ORDERED: Dextrose 5% in Water 1,000 ML IV PRN (10:52)
[2022-06-19] MEDS ORDERED: Dextrose 50% Abboject 50 ML SYRINGE SLOW IVP PRN (10:52)
[2022-06-19] MEDS ORDERED: HumaLOG 300 UNITS/3 ML VIAL SC PRN ×2 (10:52→17:30)
[2022-06-19] MEDS ORDERED: Ipratropium/Albuterol 3 ML NEB NEB PRN (10:57)
[2022-06-19 11:03] LABS: #Lymphocytes 1.2 thou/uL (1.20-3.40); #Monocytes 0.2 thou/uL (0.11-0.59); #Neutrophils 14.8 thou/uL (1.40-6.50); %Basophils 0.3 % (0.0-1.0); %Eosinophils 0.2 % (0.0-10.0); %Lymphocytes 7.4 % (21.0-51.0); %Monocytes 1.1 % (0.0-10.0); Hemoglobin 11.8 g/dL (12.0-16.0); Mean Corpuscular HGB CONC 33.3 g/dL (32.0-36.0); Mean Corpuscular Hemoglobin 29.6 pg (27.0-31.0); Mean Platelet Volume 6.2 fL (7.4-10.4); Platelet Count 298 10x3/uL (130-400); RBC Distribution Width 15.7 % (11.5-14.5); Red Blood Cell (RBC) Count 3.99 mill/uL (4.20-5.40); White Blood Cell (WBC) Count 16.2 10x3/uL (4.8-10.8)
[2022-06-19] MEDS ORDERED: Albuterol 200 PUFF (6.7GM INHALER) ONE (11:03)
[2022-06-19 11:19] LABS: Lactic Acid 3.1 mmol/L (0.5-2.2)
[2022-06-19 13:34] VITALS: BMI 31.6
[2022-06-19] MEDS: Sodium Chloride 0.9% 1,000 ML IV SCH ×2 (14:38→20:51)
[2022-06-19 17:55] LABS: AST (SGOT) 13 U/L (5-34); Albumin 3.8 g/dL (3.4-4.8); Anion Gap 16 mmol/L (10-20); BUN (Urea Nitrogen) 12 mg/dL (9.8-20.1); Bilirubin, Total 0.5 mg/dL (0.2-1.2); Calc. Creatinine Clearance 84 mL/min (70-130); Calcium 9.2 mg/dL (7.8-10.44); Carbon Dioxide 17 mmol/L (23-31); Chloride 105 mmol/L (98-107); Estimated GFR 70; Globulin 3.4 g/dL (2.4-3.5); Potassium 4.2 mmol/L (3.5-5.1); Protein, Total 7.2 g/dL (5.8-8.1); Sodium 134 mmol/L (136-145)
[2022-06-19] MEDS: Aztreonam 1 GM in Sodium Chloride 0.9% 100 ML IVPB SCH (18:05)
[2022-06-19 18:21] LABS: Alkaline Phosphatase 80 U/L (40-110)
[2022-06-19 18:23] LABS: Glucose 496 mg/dL (80-115)
[2022-06-19 18:24] LABS: ALT (SGPT) 14 U/L (8-55)
[2022-06-19 19:54] LABS: Magnesium 2.2 mg/dL (1.6-2.6)
[2022-06-19] MEDS: lamoTRIgine 25 MG TAB PO SCH (20:13)
[2022-06-19] MEDS: Mirtazapine 15 MG Soltab PO SCH (20:13)
[2022-06-19] MEDS: Insulin Glargine 30 UNITS/0.3 ML VIAL SC SCH (20:58)
[2022-06-19] MEDS ORDERED: hydrOXYzine 25 MG TAB PO SCH (21:45)
[2022-06-19] MEDS ORDERED: PARoxetine 20 MG TAB PO SCH (21:45)
[2022-06-19] MEDS: Vancomycin 1.5 GRAM/300 ML BAG 1.5 GM in Premix Bag 1 BAG IVPB SCH (23:27)
[2022-06-20] MEDS: Aztreonam 1 GM in Sodium Chloride 0.9% 100 ML IVPB SCH ×3 (01:15→18:04)
[2022-06-20] MEDS: HumaLOG 300 UNITS/3 ML VIAL SC PRN ×4 (01:42→16:51)
[2022-06-20] MEDS ORDERED: predniSONE 50 MG TAB PO SCH ×3 (02:00→20:00)
[2022-06-20] MEDS: Sodium Chloride 0.9% 1,000 ML IV SCH ×2 (04:39→16:05)
[2022-06-20 05:15] LABS: #Lymphocytes 1.8 thou/uL (1.20-3.40); #Monocytes 0.6 thou/uL (0.11-0.59); #Neutrophils 13.3 thou/uL (1.40-6.50); %Eosinophils 0.1 % (0.0-10.0); %Lymphocytes 11.4 % (21.0-51.0); %Monocytes 3.5 % (0.0-10.0); %Neutrophils 84.9 % (42.0-75.0); Hemoglobin 10.7 g/dL (12.0-16.0); Mean Corpuscular HGB CONC 33.4 g/dL (32.0-36.0); Mean Corpuscular Hemoglobin 29.6 pg (27.0-31.0); Mean Corpuscular Volume 88.8 fl (78.0-98.0); Mean Platelet Volume 6.2 fL (7.4-10.4); Platelet Count 334 10x3/uL (130-400); RBC Distribution Width 15.8 % (11.5-14.5); Red Blood Cell (RBC) Count 3.61 mill/uL (4.20-5.40); White Blood Cell (WBC) Count 15.7 10x3/uL (4.8-10.8)
[2022-06-20 05:34] LABS: Phosphorus 1.8 mg/dL (2.3-4.7)
[2022-06-20] MEDS ORDERED: Ondansetron ODT 4 MG TAB PO PRN (07:58)
[2022-06-20] MEDS ORDERED: Acetaminophen 325 MG TAB PO PRN (07:58)
[2022-06-20] MEDS ORDERED: Ondansetron PF 4 MG/2 ML Vial IVP PRN (07:58)
[2022-06-20] MEDS: lamoTRIgine 25 MG TAB PO SCH ×2 (09:43→21:16)
[2022-06-20] MEDS: glipiZIDE 5 MG TAB PO SCH (09:43)
[2022-06-20] MEDS: Vancomycin 1.5 GRAM/300 ML BAG 1.5 GM in Premix Bag 1 BAG IVPB SCH ×2 (11:34→23:28)
[2022-06-20] MEDS ORDERED: methylPREDNISolone Sod Succ 40 MG VIAL IVP SCH (12:00)
[2022-06-20] MEDS ORDERED: Famotidine/PF 20 mg/2ml Vial SLOW IVP SCH (16:00)
[2022-06-20] MEDS ORDERED: diphenhydrAMINE 50 MG/ML VIAL IVP SCH (16:00)
[2022-06-20] MEDS ORDERED: HumaLOG 300 UNITS/3 ML VIAL SC PRN (20:03)
[2022-06-20] MEDS ORDERED: Gabapentin 300 MG CAP PO SCH (21:00)
[2022-06-20] MEDS ORDERED: Mirtazapine 15 MG Soltab PO SCH (21:00)
[2022-06-20] MEDS ORDERED: PARoxetine 20 MG TAB PO SCH (21:00)
[2022-06-20] MEDS ORDERED: hydrOXYzine 25 MG TAB PO SCH (21:00)
[2022-06-20] MEDS: Mirtazapine 15 MG Soltab PO SCH (21:15)
[2022-06-20] MEDS: Insulin Glargine 30 UNITS/0.3 ML VIAL SC SCH (21:16)
[2022-06-20 23:10] LABS: Vancomycin, Trough 10.2 ug/mL
[2022-06-21] MEDS: VANCOMYCIN 1.75 GM/500 ML BAG 1.75 GM in Premix Bag 1 BAG IVPB SCH ×2 (00:22→12:56)
[2022-06-21] MEDS: Aztreonam 1 GM in Sodium Chloride 0.9% 100 ML IVPB SCH ×2 (02:40→09:16)
[2022-06-21] MEDS: Sodium Chloride 0.9% 1,000 ML IV SCH ×2 (02:40→07:53)
[2022-06-21 06:39] LABS: #Basophils 0.1 thou/uL (0.0-0.2); #Eosinphils 0.1 thou/uL (0.0-0.7); #Lymphocytes 3.1 thou/uL (1.20-3.40); #Monocytes 0.6 thou/uL (0.11-0.59); #Neutrophils 8.8 thou/uL (1.40-6.50); %Basophils 0.6 % (0.0-1.0); %Eosinophils 0.5 % (0.0-10.0); %Lymphocytes 24.3 % (21.0-51.0); %Monocytes 4.4 % (0.0-10.0); %Neutrophils 70.2 % (42.0-75.0); Hemoglobin 10.9 g/dL (12.0-16.0); Mean Corpuscular HGB CONC 33.3 g/dL (32.0-36.0); Mean Corpuscular Hemoglobin 29.4 pg (27.0-31.0); Mean Corpuscular Volume 88.1 fl (78.0-98.0); Mean Platelet Volume 6.4 fL (7.4-10.4); Platelet Count 348 10x3/uL (130-400); RBC Distribution Width 15.7 % (11.5-14.5); Red Blood Cell (RBC) Count 3.69 mill/uL (4.20-5.40); White Blood Cell (WBC) Count 12.6 10x3/uL (4.8-10.8)
[2022-06-21 06:57] LABS: Anion Gap 11 mmol/L (10-20); BUN (Urea Nitrogen) 18 mg/dL (9.8-20.1); Calc. Creatinine Clearance 124 mL/min (70-130); Calcium 9.1 mg/dL (7.8-10.44); Carbon Dioxide 24 mmol/L (23-31); Chloride 106 mmol/L (98-107); Estimated GFR 101; Glucose 233 mg/dL (80-115); Potassium 3.7 mmol/L (3.5-5.1); Sodium 137 mmol/L (136-145)
[2022-06-21 08:36] VITALS: BP 149/90; TEMP 97.5
[2022-06-21] MEDS ORDERED: Loratadine 10 MG TAB PO SCH (09:00)
[2022-06-21] MEDS ORDERED: Aspirin 81 mg Enteric Coated Tablet PO SCH (09:00)
[2022-06-21] MEDS ORDERED: Lisinopril 10 MG TAB PO SCH (09:00)
[2022-06-21] MEDS: lamoTRIgine 25 MG TAB PO SCH (09:15)
[2022-06-21] MEDS: glipiZIDE 5 MG TAB PO SCH (09:15)
[2022-06-21] MEDS: HumaLOG 300 UNITS/3 ML VIAL SC PRN (13:36)
[2022-06-21] MEDS ORDERED: lamoTRIgine 25 MG TAB PO SCH (17:00)
== END 2022-06-21 13:42 | disposition home or self-care (01) | DRG 871 ==
LOC: ERS 07:42 → ERHOLD 10:16 → 2SW 13:12 → T4-B 06-20 13:45
PROVIDERS: ADMIT Internal Medicine Nephrology; ATTEND Hospitalist
DX: A41.9 Sepsis, unspecified organism (principal); E11.10 Type 2 diabetes mellitus with ketoacidosis without coma; J45.21 Mild intermittent asthma with (acute) exacerbation; Z20.822 Contact with and (suspected) exposure to COVID-19; K04.6 Periapical abscess with sinus; K04.7 Periapical abscess without sinus; I10 Essential (primary) hypertension; E83.42 Hypomagnesemia; F20.9 Schizophrenia, unspecified; F31.9 Bipolar disorder, unspecified; Z88.0 Allergy status to penicillin; Z79.899 Other long term (current) drug therapy; Z98.51 Tubal ligation status; Z90.49 Acquired absence of other specified parts of digestive tract; Z59.01 Sheltered homelessness; Z91.041 Radiographic dye allergy status
CPT/HCPCS: 36415; 36416; 70450; 71045; 74177; 80048; 80053; 80202; 81003; 81015; 82010; 83605; 83690; 83735; 84100; 84443; 84484; 85025; 85610; 85730; 87040; 87086; 87804; 93005; 94664; 94760; 96365; 96366; 96367; 96375; J1200; J1815; J2920; J2930; J3370; J3475; J3490; J7050; S0028; U0002

== ENCOUNTER 2022-07-07 09:01 | Emergency (ER) | payer OTHER ==
[2022-07-07 09:32] LABS: Bilirubin Negative (Negative); Blood, Urine Large (Negative); Glucose, Urine (Dipstick) 100 mg/dL (Negative); Ketone, Urine Trace mg/dL (Negative); Leukocyte Moderate (Negative); Nitrite Negative (Negative); Protein, Urine (Dipstick) 100 mg/dL (Neg-Trace); Urobilinogen 0.2 mg/dL (Less than 2)
[2022-07-07 09:34] LABS: Clarity Cloudy (Clear); Specific Gravity, Urine 1.018 (1.002-1.036)
[2022-07-07 09:40] LABS: Bacteria/HPF 1+ HPF (None Seen); WBC/HPF 21-50 HPF (0-3)
[2022-07-07] MEDS ORDERED: Ketorolac Tromethamine 30 MG/ML VIAL ONE (09:41)
[2022-07-07 09:50] LABS: #Basophils 0.1 thou/uL (0.0-0.2); #Eosinphils 0.2 thou/uL (0.0-0.7); #Lymphocytes 1.8 thou/uL (1.20-3.40); #Monocytes 0.5 thou/uL (0.11-0.59); #Neutrophils 6.3 thou/uL (1.40-6.50); %Basophils 0.9 % (0.0-1.0); %Lymphocytes 20.4 % (21.0-51.0); %Monocytes 5.3 % (0.0-10.0); %Neutrophils 71.5 % (42.0-75.0); Hemoglobin 12.7 g/dL (12.0-16.0); Mean Corpuscular HGB CONC 35.3 g/dL (32.0-36.0); Mean Corpuscular Hemoglobin 31.3 pg (27.0-31.0); Mean Corpuscular Volume 88.7 fl (78.0-98.0); Mean Platelet Volume 6.5 fL (7.4-10.4); Platelet Count 301 10x3/uL (130-400); RBC Distribution Width 14.3 % (11.5-14.5); Red Blood Cell (RBC) Count 4.07 mill/uL (4.20-5.40); White Blood Cell (WBC) Count 8.8 10x3/uL (4.8-10.8)
[2022-07-07] MEDS ORDERED: Phenazopyridine HCl 100 MG TAB PO SCH (10:00)
[2022-07-07 10:13] LABS: ALT (SGPT) 13 U/L (8-55); AST (SGOT) 13 U/L (5-34); Albumin 4.2 g/dL (3.4-4.8); Alkaline Phosphatase 84 U/L (40-110); Anion Gap 16 mmol/L (10-20); BUN (Urea Nitrogen) 20 mg/dL (9.8-20.1); Bilirubin, Total 0.4 mg/dL (0.2-1.2); Calc. Creatinine Clearance 0 mL/min (70-130); Calcium 10.3 mg/dL (7.8-10.44); Carbon Dioxide 19 mmol/L (23-31); Chloride 104 mmol/L (98-107); Estimated GFR 83; Globulin 3.8 g/dL (2.4-3.5); Glucose 255 mg/dL (80-115); Lipase 21 U/L (8-78); Potassium 3.8 mmol/L (3.5-5.1); Sodium 135 mmol/L (136-145)
== END 2022-07-07 11:35 | disposition home or self-care (01) ==
LOC: ERS 09:01
DX: N39.0 Urinary tract infection, site not specified (principal); E11.9 Type 2 diabetes mellitus without complications; I10 Essential (primary) hypertension; Z87.891 Personal history of nicotine dependence; Z79.899 Other long term (current) drug therapy; Z79.84 Long term (current) use of oral hypoglycemic drugs
CPT/HCPCS: 36415; 80053; 81003; 81015; 83605; 83690; 85025; 87040; 87077; 87086; 87186; 96374; J1885

== ENCOUNTER 2022-07-18 15:53 | Emergency (ER) | payer OTHER | END 2022-07-18 17:25 | disposition home or self-care (01) | LOC: ERS 15:53 | DX: M25.562 Pain in left knee (principal); E11.9 Type 2 diabetes mellitus without complications; I10 Essential (primary) hypertension; F17.210 Nicotine dependence, cigarettes, uncomplicated | CPT/HCPCS: 99283 ==

== ENCOUNTER 2022-12-04 11:51 | Emergency (ER) | payer OTHER ==
[2022-12-04] MEDS ORDERED: HYDROcodone/Acetaminophen 5/325 mg Tablet ONE (16:53)
== END 2022-12-04 18:37 | disposition home or self-care (01) ==
LOC: ERS 11:51
DX: E11.51 Type 2 diabetes mellitus with diabetic peripheral angiopathy without gangrene (principal); I10 Essential (primary) hypertension; Z87.891 Personal history of nicotine dependence
CPT/HCPCS: 93923

== ENCOUNTER 2023-01-10 11:04 | Inpatient (IN) | payer OTHER ==
[2023-01-10 11:46] LABS: #Eosinphils 0.2 thou/uL (0.0-0.7); #Monocytes 0.6 thou/uL (0.11-0.59); #Neutrophils 5.7 thou/uL (1.40-6.50); %Basophils 0.5 % (0.0-1.0); %Eosinophils 1.9 % (0.0-10.0); %Lymphocytes 22.5 % (21.0-51.0); %Monocytes 6.6 % (0.0-10.0); %Neutrophils 68.1 % (42.0-75.0); Hematocrit 33.6 % (36.0-47.0); Hemoglobin 10.3 g/dL (12.0-16.0); Mean Corpuscular HGB CONC 30.7 g/dL (32.0-36.0); Mean Corpuscular Hemoglobin 24.3 pg (27.0-31.0); Mean Corpuscular Volume 79.4 fl (78.0-98.0); Mean Platelet Volume 8.3 fL (7.4-10.4); Platelet Count 456 10x3/uL (130-400); Red Blood Cell (RBC) Count 4.23 mill/uL (4.20-5.40); White Blood Cell (WBC) Count 8.3 10x3/uL (4.8-10.8)
[2023-01-10 12:11] LABS: ALT (SGPT) 12 U/L (8-55); AST (SGOT) 14 U/L (5-34); Albumin 4.3 g/dL (3.4-4.8); Alkaline Phosphatase 187 U/L (40-110); Anion Gap 14 mmol/L (10-20); BUN (Urea Nitrogen) 8 mg/dL (9.8-20.1); Bilirubin, Total 0.5 mg/dL (0.2-1.2); Calc. Creatinine Clearance 0 mL/min (70-130); Carbon Dioxide 22 mmol/L (23-31); Chloride 104 mmol/L (98-107); Estimated GFR 97; Globulin 4.7 g/dL (2.4-3.5); Glucose 183 mg/dL (80-115); Sodium 137 mmol/L (136-145)
[2023-01-10] MEDS ORDERED: Famotidine/PF 20 mg/2ml Vial ONE (12:52)
[2023-01-10] MEDS ORDERED: Ondansetron PF 4 MG/2 ML Vial ONE (12:52)
[2023-01-10] MEDS ORDERED: methylPREDNISolone Sod Succ 40 MG VIAL ONE (12:52)
[2023-01-10] MEDS ORDERED: Morphine 4 MG/ML VIAL ONE ×2 (12:52→14:00)
[2023-01-10] MEDS ORDERED: diphenhydrAMINE 50 MG/ML VIAL ONE (12:52)
[2023-01-10] MEDS ORDERED: Cefepime 2 GM VIAL ONE (13:21)
[2023-01-10 13:24] LABS: INR-International Normal Ratio 1.1; Prothrombin Time 14.3 sec (12.0-14.7)
[2023-01-10 13:25] LABS: PTT 34.3 sec (22.9-36.1)
[2023-01-10] MEDS ORDERED: Vancomycin (BATCH) 1.5 GM in Premix 1 BAG IVPB SCH (14:15)
[2023-01-10] MEDS ORDERED: Heparin 10,000 UNITS/ 10 ML VIAL ONE (16:01)
[2023-01-10] MEDS ORDERED: Heparin 25,000 units/D5W 500 ML ONE (16:01)
[2023-01-10] MEDS ORDERED: fentaNYL 50 mcg/mL 1 mL Vial ONE (16:24)
[2023-01-10] MEDS ORDERED: HYDROcodone/Acetaminophen 5/325 mg Tablet PO PRN (17:17)
[2023-01-10] MEDS ORDERED: Fentanyl 100 MCG/2 ML VIAL SLOW IVP PRN (17:17)
[2023-01-10] MEDS ORDERED: Glucagon 1 MG/ML KIT IM PRN (19:52)
[2023-01-10] MEDS ORDERED: Dextrose 5% in Water 1,000 ML IV PRN (19:52)
[2023-01-10] MEDS ORDERED: Dextrose 50% Abboject 50 ML SYRINGE SLOW IVP PRN (19:52)
[2023-01-10] MEDS ORDERED: Potassium Chloride 20 MEQ TAB PO SCH (20:00)
[2023-01-10] MEDS: fentaNYL 50 mcg/mL 1 mL Vial SLOW IVP PRN (20:41)
[2023-01-10 20:58] VITALS: BMI 26.2
[2023-01-10] MEDS ORDERED: Vancomycin 1 GM in Premix 1 BAG IVPB SCH (21:00)
[2023-01-10] MEDS: Gabapentin 300 MG CAP PO SCH (21:10)
[2023-01-10] MEDS: Heparin 5,000 UNITS/ML VIAL SC SCH (21:12)
[2023-01-10] MEDS: hydrOXYzine 25 MG TAB PO SCH (21:12)
[2023-01-10] MEDS: HumaLOG 300 UNITS/3 ML VIAL SC PRN (21:13)
[2023-01-10] MEDS: Atorvastatin Calcium 40 MG TAB PO SCH (21:15)
[2023-01-10] MEDS: PARoxetine 20 MG TAB PO SCH (21:15)
[2023-01-10] MEDS: Famotidine 20 MG TAB PO SCH (21:16)
[2023-01-10] MEDS: Mirtazapine 15 MG Soltab PO SCH (21:16)
[2023-01-10 21:25] LABS: Glucose 439 mg/dL (80-115)
[2023-01-10] MEDS: HYDROcodone/Acetaminophen 5/325 mg Tablet PO PRN (21:54)
[2023-01-10] MEDS: Morphine 4 MG/ML VIAL SLOW IVP PRN (22:57)
[2023-01-10] MEDS: Clindamycin/D5W 600 MG in Premix 1 BAG IVPB SCH (23:02)
[2023-01-11] MEDS: fentaNYL 50 mcg/mL 1 mL Vial SLOW IVP PRN ×3 (00:27→23:06)
[2023-01-11] MEDS: Ondansetron PF 4 MG/2 ML Vial IVP PRN ×2 (00:39→20:13)
[2023-01-11] MEDS ORDERED: Cefepime 1 GM in Sodium Chloride 0.9% 100 ML IVPB SCH (01:00)
[2023-01-11] MEDS ORDERED: Vancomycin HCl 750 MG VIAL ONE (01:14)
[2023-01-11] MEDS: HYDROcodone/Acetaminophen 5/325 mg Tablet PO PRN ×5 (01:27→21:37)
[2023-01-11] MEDS: Morphine 4 MG/ML VIAL SLOW IVP PRN ×4 (03:20→20:14)
[2023-01-11] MEDS: Vancomycin HCl 750 MG in Sodium Chloride 0.9% 250 ML 250 ML IVPB SCH ×2 (03:35→13:45)
[2023-01-11 04:33] LABS: #Monocytes 0.8 thou/uL (0.11-0.59); #Neutrophils 4.4 thou/uL (1.40-6.50); %Basophils 0.4 % (0.0-1.0); %Eosinophils 0.5 % (0.0-10.0); %Lymphocytes 28.6 % (21.0-51.0); %Monocytes 11.2 % (0.0-10.0); %Neutrophils 58.9 % (42.0-75.0); Hematocrit 29.8 % (36.0-47.0); Mean Corpuscular HGB CONC 30.2 g/dL (32.0-36.0); Mean Corpuscular Hemoglobin 24.3 pg (27.0-31.0); Mean Corpuscular Volume 80.5 fl (78.0-98.0); Mean Platelet Volume 8.4 fL (7.4-10.4); Platelet Count 392 10x3/uL (130-400); RBC Distribution Width 16.1 % (11.5-14.5); White Blood Cell (WBC) Count 7.5 10x3/uL (4.8-10.8)
[2023-01-11 05:02] LABS: Anion Gap 10 mmol/L (10-20); BUN (Urea Nitrogen) 14 mg/dL (9.8-20.1); Calc. Creatinine Clearance 90 mL/min (70-130); Calcium 9.4 mg/dL (7.8-10.44); Carbon Dioxide 21 mmol/L (23-31); Chloride 107 mmol/L (98-107); Estimated GFR 97; Glucose 295 mg/dL (80-115); Potassium 3.4 mmol/L (3.5-5.1); Sodium 135 mmol/L (136-145)
[2023-01-11] MEDS: Clindamycin/D5W 600 MG in Premix 1 BAG IVPB SCH (07:22)
[2023-01-11] MEDS: HumaLOG 300 UNITS/3 ML VIAL SC PRN (07:23)
[2023-01-11 07:54] LABS: Glucose 206 mg/dL (80-115)
[2023-01-11] MEDS: metFORMIN 500 MG TAB PO SCH ×2 (08:49→17:37)
[2023-01-11] MEDS: glipiZIDE 5 MG TAB PO SCH (08:49)
[2023-01-11] MEDS: Famotidine 20 MG TAB PO SCH ×2 (08:50→20:15)
[2023-01-11] MEDS: Heparin 5,000 UNITS/ML VIAL SC SCH ×2 (08:50→20:15)
[2023-01-11] MEDS: Lisinopril 10 MG TAB PO SCH (08:50)
[2023-01-11] MEDS: Aspirin 81 mg Enteric Coated Tablet PO SCH (08:50)
[2023-01-11] MEDS: Senokot S 8.6-50 MG TAB PO SCH (08:50)
[2023-01-11] MEDS ORDERED: Clopidogrel Bisulfate 75 MG TAB PO SCH (09:00)
[2023-01-11] MEDS ORDERED: Vancomycin 1 GM in Premix 1 BAG IVPB SCH (09:00)
[2023-01-11 11:32] LABS: Glucose 140 mg/dL (80-115)
[2023-01-11 17:20] LABS: Glucose 124 mg/dL (80-115)
[2023-01-11] MEDS: lamoTRIgine 25 MG TAB PO SCH (17:37)
[2023-01-11] MEDS: Mirtazapine 15 MG Soltab PO SCH (20:15)
[2023-01-11] MEDS: PARoxetine 20 MG TAB PO SCH (20:15)
[2023-01-11] MEDS: hydrOXYzine 25 MG TAB PO SCH (20:15)
[2023-01-11] MEDS: Gabapentin 300 MG CAP PO SCH (20:16)
[2023-01-11] MEDS: Atorvastatin Calcium 40 MG TAB PO SCH (20:16)
[2023-01-11 22:13] LABS: Glucose 212 mg/dL (80-115)
[2023-01-12] MEDS: Morphine 4 MG/ML VIAL SLOW IVP PRN ×2 (01:40→06:27)
[2023-01-12 02:50] LABS: Vancomycin, Trough 7.5 ug/mL
[2023-01-12] MEDS: Vancomycin (BATCH) 1.25 GM in Premix 1 BAG IVPB SCH ×2 (04:00→16:00)
[2023-01-12] MEDS: HYDROcodone/Acetaminophen 5/325 mg Tablet PO PRN ×3 (04:34→23:10)
[2023-01-12] MEDS: fentaNYL 50 mcg/mL 1 mL Vial SLOW IVP PRN ×2 (05:34→08:49)
[2023-01-12] MEDS: glipiZIDE 5 MG TAB PO SCH (05:50)
[2023-01-12] MEDS: HumaLOG 300 UNITS/3 ML VIAL SC PRN (06:26)
[2023-01-12 07:54] LABS: Glucose 185 mg/dL (80-115)
[2023-01-12] MEDS: Lisinopril 10 MG TAB PO SCH (08:48)
[2023-01-12] MEDS: metFORMIN 500 MG TAB PO SCH ×2 (08:48→18:15)
[2023-01-12] MEDS: Famotidine 20 MG TAB PO SCH ×2 (08:49→20:23)
[2023-01-12] MEDS: Heparin 5,000 UNITS/ML VIAL SC SCH ×2 (08:49→20:41)
[2023-01-12] MEDS: Senokot S 8.6-50 MG TAB PO SCH (08:49)
[2023-01-12] MEDS: Aspirin 81 mg Enteric Coated Tablet PO SCH (08:49)
[2023-01-12 11:29] LABS: Glucose 115 mg/dL (80-115)
[2023-01-12] MEDS ORDERED: Ketorolac Tromethamine 30 MG/ML VIAL IVP PRN (12:05)
[2023-01-12] MEDS: Ketorolac Tromethamine 30 MG/ML VIAL IVP PRN ×2 (13:38→20:25)
[2023-01-12 17:32] LABS: Glucose 96 mg/dL (80-115)
[2023-01-12] MEDS: lamoTRIgine 25 MG TAB PO SCH (18:15)
[2023-01-12] MEDS: Atorvastatin Calcium 40 MG TAB PO SCH (20:23)
[2023-01-12] MEDS: Gabapentin 300 MG CAP PO SCH (20:23)
[2023-01-12] MEDS: hydrOXYzine 25 MG TAB PO SCH (20:24)
[2023-01-12] MEDS: PARoxetine 20 MG TAB PO SCH (20:24)
[2023-01-12] MEDS: Mirtazapine 15 MG Soltab PO SCH (20:38)
[2023-01-13] MEDS: Vancomycin (BATCH) 1.25 GM in Premix 1 BAG IVPB SCH ×3 (02:46→19:45)
[2023-01-13] MEDS: Aspirin 81 mg Enteric Coated Tablet PO SCH (07:51)
[2023-01-13] MEDS: metFORMIN 500 MG TAB PO SCH ×2 (07:51→18:24)
[2023-01-13] MEDS: glipiZIDE 5 MG TAB PO SCH (07:51)
[2023-01-13] MEDS: Heparin 5,000 UNITS/ML VIAL SC SCH ×2 (07:51→20:19)
[2023-01-13] MEDS: Senokot S 8.6-50 MG TAB PO SCH (07:53)
[2023-01-13] MEDS: Lisinopril 10 MG TAB PO SCH (09:33)
[2023-01-13] MEDS: Famotidine 20 MG TAB PO SCH ×2 (09:33→20:18)
[2023-01-13] MEDS: Ketorolac Tromethamine 30 MG/ML VIAL IVP PRN ×2 (09:33→19:43)
[2023-01-13] MEDS ORDERED: Phenylephrine 10 MG/ML VIAL ONE (12:14)
[2023-01-13] MEDS ORDERED: fentaNYL PF 100 MCG/2 ML SYRINGE ONE (12:14)
[2023-01-13] MEDS ORDERED: Promethazine HCl 25 MG/ML VIAL IM PRN (13:10)
[2023-01-13] MEDS ORDERED: Ondansetron HCl/PF 4 MG/2 ML Vial IVP PRN (13:10)
[2023-01-13] MEDS ORDERED: fentaNYL 50 mcg/mL 1 mL Vial ONE ×4 (13:16→17:33)
[2023-01-13] MEDS ORDERED: Lidocaine 1% PF 5 ML VIAL ONE (13:29)
[2023-01-13] MEDS ORDERED: PROPOFOL 200 MG/20 ML VIAL ONE (13:29)
[2023-01-13] MEDS ORDERED: Ondansetron PF 4 MG/2 ML Vial ONE (13:29)
[2023-01-13] MEDS ORDERED: PHENYLEPHRINE-NS 100 MCG/ML 10 ML SYRINGE ONE (13:29)
[2023-01-13] MEDS ORDERED: HYDROmorphone 0.5 MG/0.5 ML SYRINGE ONE ×4 (14:53→18:04)
[2023-01-13] MEDS ORDERED: KETAMINE 100 MG/ML (5ML VIAL) ONE (15:19)
[2023-01-13] MEDS ORDERED: Metoprolol Tartrate 5 MG/5 ML VIAL ONE (17:09)
[2023-01-13 17:34] LABS: Vancomycin, Trough 10.8 ug/mL
[2023-01-13] MEDS ORDERED: Vancomycin (BATCH) 1.25 GM in Premix 1 BAG IVPB SCH (18:00)
[2023-01-13] MEDS ORDERED: hydrALAZINE 20 MG/ML VIAL ONE (18:19)
[2023-01-13] MEDS: lamoTRIgine 25 MG TAB PO SCH (18:25)
[2023-01-13] MEDS: Gabapentin 300 MG CAP PO SCH (20:18)
[2023-01-13] MEDS: hydrOXYzine 25 MG TAB PO SCH (20:19)
[2023-01-13] MEDS: PARoxetine 20 MG TAB PO SCH (20:19)
[2023-01-13] MEDS: Mirtazapine 15 MG Soltab PO SCH (20:19)
[2023-01-13] MEDS: Atorvastatin Calcium 40 MG TAB PO SCH (20:19)
[2023-01-13] MEDS: HumaLOG 300 UNITS/3 ML VIAL SC PRN (20:20)
[2023-01-13] MEDS: HYDROcodone/Acetaminophen 5/325 mg Tablet PO PRN (20:27)
[2023-01-13] MEDS: fentaNYL 50 mcg/mL 1 mL Vial SLOW IVP PRN (23:58)
[2023-01-14] MEDS: fentaNYL 50 mcg/mL 1 mL Vial SLOW IVP PRN ×5 (05:46→22:18)
[2023-01-14 06:18] LABS: #Eosinphils 0.2 thou/uL (0.0-0.7); #Monocytes 0.6 thou/uL (0.11-0.59); #Neutrophils 6.1 thou/uL (1.40-6.50); %Basophils 0.5 % (0.0-1.0); %Eosinophils 1.7 % (0.0-10.0); %Monocytes 7.1 % (0.0-10.0); %Neutrophils 70.5 % (42.0-75.0); Hematocrit 29.2 % (36.0-47.0); Mean Corpuscular HGB CONC 30.8 g/dL (32.0-36.0); Mean Corpuscular Hemoglobin 24.3 pg (27.0-31.0); Mean Corpuscular Volume 78.9 fl (78.0-98.0); Mean Platelet Volume 8.1 fL (7.4-10.4); Platelet Count 410 10x3/uL (130-400); RBC Distribution Width 16.5 % (11.5-14.5); White Blood Cell (WBC) Count 8.7 10x3/uL (4.8-10.8)
[2023-01-14 06:35] LABS: Anion Gap 12 mmol/L (10-20); BUN (Urea Nitrogen) 7 mg/dL (9.8-20.1); Calc. Creatinine Clearance 101 mL/min (70-130); Calcium 9.3 mg/dL (7.8-10.44); Carbon Dioxide 29 mmol/L (23-31); Chloride 99 mmol/L (98-107); Estimated GFR 100; Glucose 188 mg/dL (80-115); Potassium 2.8 mmol/L (3.5-5.1); Sodium 137 mmol/L (136-145)
[2023-01-14] MEDS ORDERED: Potassium Chloride 20 MEQ in Premix 1 BAG IVPB SCH ×2 (09:00→12:00)
[2023-01-14] MEDS ORDERED: Potassium Chloride 20 MEQ TAB PO SCH (09:00)
[2023-01-14] MEDS: metFORMIN 500 MG TAB PO SCH ×2 (09:42→17:01)
[2023-01-14] MEDS: Lisinopril 10 MG TAB PO SCH (09:43)
[2023-01-14] MEDS: Senokot S 8.6-50 MG TAB PO SCH (09:43)
[2023-01-14] MEDS: Famotidine 20 MG TAB PO SCH ×2 (09:43→19:55)
[2023-01-14] MEDS: Ketorolac Tromethamine 30 MG/ML VIAL IVP PRN ×2 (09:44→16:59)
[2023-01-14] MEDS: glipiZIDE 5 MG TAB PO SCH (09:44)
[2023-01-14] MEDS: Aspirin 81 mg Enteric Coated Tablet PO SCH (09:44)
[2023-01-14] MEDS: Vancomycin (BATCH) 1.25 GM in Premix 1 BAG IVPB SCH ×2 (09:45→19:49)
[2023-01-14] MEDS: Heparin 5,000 UNITS/ML VIAL SC SCH ×2 (09:45→19:53)
[2023-01-14] MEDS: HumaLOG 300 UNITS/3 ML VIAL SC PRN ×2 (14:39→19:56)
[2023-01-14] MEDS: lamoTRIgine 25 MG TAB PO SCH (16:59)
[2023-01-14] MEDS: ALPRAZolam 0.25 MG TAB PO PRN (17:01)
[2023-01-14 17:42] LABS: Troponin I Less than 0.010 ng/mL (< 0.028)
[2023-01-14] MEDS: PARoxetine 20 MG TAB PO SCH (19:54)
[2023-01-14] MEDS: Atorvastatin Calcium 40 MG TAB PO SCH (19:55)
[2023-01-14] MEDS: Gabapentin 300 MG CAP PO SCH (19:55)
[2023-01-14] MEDS: Mirtazapine 15 MG Soltab PO SCH (19:55)
[2023-01-14] MEDS: hydrOXYzine 25 MG TAB PO SCH (19:55)
[2023-01-15] MEDS: Acetaminophen 325 MG TAB PO PRN (01:25)
[2023-01-15] MEDS: Ketorolac Tromethamine 30 MG/ML VIAL IVP PRN ×3 (01:28→18:28)
[2023-01-15] MEDS: HumaLOG 300 UNITS/3 ML VIAL SC PRN ×2 (05:38→13:03)
[2023-01-15 06:56] LABS: #Basophils 0.1 thou/uL (0.0-0.2); #Eosinphils 0.2 thou/uL (0.0-0.7); #Monocytes 0.7 thou/uL (0.11-0.59); #Neutrophils 5.7 thou/uL (1.40-6.50); %Basophils 0.6 % (0.0-1.0); %Eosinophils 1.9 % (0.0-10.0); %Lymphocytes 22.5 % (21.0-51.0); %Monocytes 8.3 % (0.0-10.0); %Neutrophils 66.2 % (42.0-75.0); Hematocrit 29.3 % (36.0-47.0); Hemoglobin 8.7 g/dL (12.0-16.0); Mean Corpuscular HGB CONC 29.7 g/dL (32.0-36.0); Mean Corpuscular Volume 80.7 fl (78.0-98.0); Platelet Count 369 10x3/uL (130-400); RBC Distribution Width 16.4 % (11.5-14.5); Red Blood Cell (RBC) Count 3.63 mill/uL (4.20-5.40); White Blood Cell (WBC) Count 8.5 10x3/uL (4.8-10.8)
[2023-01-15 07:19] LABS: Vancomycin, Trough 12.1 ug/mL
[2023-01-15 07:24] LABS: Anion Gap 12 mmol/L (10-20); BUN (Urea Nitrogen) 10 mg/dL (9.8-20.1); Calc. Creatinine Clearance 92 mL/min (70-130); Calcium 9.4 mg/dL (7.8-10.44); Carbon Dioxide 28 mmol/L (23-31); Chloride 97 mmol/L (98-107); Estimated GFR 98; Glucose 248 mg/dL (80-115); Potassium 3.1 mmol/L (3.5-5.1); Sodium 134 mmol/L (136-145)
[2023-01-15] MEDS: Vancomycin (BATCH) 1.25 GM in Premix 1 BAG IVPB SCH ×2 (08:50→20:24)
[2023-01-15] MEDS: Senokot S 8.6-50 MG TAB PO SCH (08:51)
[2023-01-15] MEDS: Heparin 5,000 UNITS/ML VIAL SC SCH ×2 (08:51→20:37)
[2023-01-15] MEDS: Famotidine 20 MG TAB PO SCH ×2 (08:51→20:25)
[2023-01-15] MEDS: Aspirin 81 mg Enteric Coated Tablet PO SCH (08:51)
[2023-01-15] MEDS: metFORMIN 500 MG TAB PO SCH ×2 (08:51→18:23)
[2023-01-15] MEDS: glipiZIDE 5 MG TAB PO SCH (08:51)
[2023-01-15] MEDS: Lisinopril 10 MG TAB PO SCH (08:51)
[2023-01-15] MEDS: ALPRAZolam 0.25 MG TAB PO PRN (10:01)
[2023-01-15] MEDS ORDERED: Potassium Chloride 20 MEQ TAB PO SCH (11:45)
[2023-01-15] MEDS: fentaNYL 50 mcg/mL 1 mL Vial SLOW IVP PRN ×2 (13:03→20:31)
[2023-01-15] MEDS: HYDROcodone/Acetaminophen 5/325 mg Tablet PO PRN (16:09)
[2023-01-15] MEDS: lamoTRIgine 25 MG TAB PO SCH (18:23)
[2023-01-15] MEDS: hydrOXYzine 25 MG TAB PO SCH (20:25)
[2023-01-15] MEDS: Gabapentin 300 MG CAP PO SCH (20:25)
[2023-01-15] MEDS: PARoxetine 20 MG TAB PO SCH (20:25)
[2023-01-15] MEDS: Atorvastatin Calcium 40 MG TAB PO SCH (20:25)
[2023-01-15] MEDS: Mirtazapine 15 MG Soltab PO SCH (20:25)
[2023-01-16] MEDS: Ketorolac Tromethamine 30 MG/ML VIAL IVP PRN ×4 (02:42→20:12)
[2023-01-16] MEDS: HumaLOG 300 UNITS/3 ML VIAL SC PRN (05:44)
[2023-01-16] MEDS: fentaNYL 50 mcg/mL 1 mL Vial SLOW IVP PRN ×4 (05:47→23:28)
[2023-01-16 06:45] LABS: #Basophils 0.1 thou/uL (0.0-0.2); #Eosinphils 0.3 thou/uL (0.0-0.7); #Monocytes 0.6 thou/uL (0.11-0.59); #Neutrophils 5.8 thou/uL (1.40-6.50); %Basophils 0.6 % (0.0-1.0); %Eosinophils 3.3 % (0.0-10.0); %Lymphocytes 23.3 % (21.0-51.0); %Monocytes 6.2 % (0.0-10.0); Hematocrit 28.1 % (36.0-47.0); Hemoglobin 8.4 g/dL (12.0-16.0); Mean Corpuscular HGB CONC 29.9 g/dL (32.0-36.0); Mean Corpuscular Hemoglobin 24.1 pg (27.0-31.0); Mean Corpuscular Volume 80.7 fl (78.0-98.0); Mean Platelet Volume 8.3 fL (7.4-10.4); Platelet Count 364 10x3/uL (130-400); RBC Distribution Width 16.6 % (11.5-14.5); Red Blood Cell (RBC) Count 3.48 mill/uL (4.20-5.40); White Blood Cell (WBC) Count 8.8 10x3/uL (4.8-10.8)
[2023-01-16 07:09] LABS: Anion Gap 14 mmol/L (10-20); BUN (Urea Nitrogen) 14 mg/dL (9.8-20.1); Calc. Creatinine Clearance 97 mL/min (70-130); Calcium 9.3 mg/dL (7.8-10.44); Carbon Dioxide 23 mmol/L (23-31); Chloride 101 mmol/L (98-107); Estimated GFR 99; Glucose 222 mg/dL (80-115); Potassium 3.7 mmol/L (3.5-5.1); Sodium 134 mmol/L (136-145)
[2023-01-16] MEDS: Heparin 5,000 UNITS/ML VIAL SC SCH ×2 (08:27→19:54)
[2023-01-16] MEDS: Famotidine 20 MG TAB PO SCH ×2 (08:27→19:55)
[2023-01-16] MEDS: glipiZIDE 5 MG TAB PO SCH (08:27)
[2023-01-16] MEDS: Lisinopril 10 MG TAB PO SCH (08:27)
[2023-01-16] MEDS: Senokot S 8.6-50 MG TAB PO SCH (08:27)
[2023-01-16] MEDS: Aspirin 81 mg Enteric Coated Tablet PO SCH (08:27)
[2023-01-16] MEDS: metFORMIN 500 MG TAB PO SCH ×2 (08:27→16:11)
[2023-01-16] MEDS: ALPRAZolam 0.25 MG TAB PO PRN ×2 (08:28→13:50)
[2023-01-16] MEDS: HYDROcodone/Acetaminophen 5/325 mg Tablet PO PRN ×3 (08:28→17:31)
[2023-01-16] MEDS: Vancomycin (BATCH) 1.25 GM in Premix 1 BAG IVPB SCH ×2 (09:04→19:51)
[2023-01-16] MEDS: lamoTRIgine 25 MG TAB PO SCH (16:10)
[2023-01-16] MEDS: Atorvastatin Calcium 40 MG TAB PO SCH (19:54)
[2023-01-16] MEDS: PARoxetine 20 MG TAB PO SCH (19:54)
[2023-01-16] MEDS: Gabapentin 300 MG CAP PO SCH (19:54)
[2023-01-16] MEDS: hydrOXYzine 25 MG TAB PO SCH (19:55)
[2023-01-16] MEDS: Mirtazapine 15 MG Soltab PO SCH (19:55)
[2023-01-17 07:11] LABS: Vancomycin, Trough 15.4 ug/mL
[2023-01-17] MEDS: Aspirin 81 mg Enteric Coated Tablet PO SCH (07:33)
[2023-01-17] MEDS: Famotidine 20 MG TAB PO SCH ×2 (07:33→19:51)
[2023-01-17] MEDS: Senokot S 8.6-50 MG TAB PO SCH (07:33)
[2023-01-17] MEDS: glipiZIDE 5 MG TAB PO SCH (07:33)
[2023-01-17] MEDS: metFORMIN 500 MG TAB PO SCH ×2 (07:33→14:58)
[2023-01-17] MEDS: Lisinopril 10 MG TAB PO SCH (07:33)
[2023-01-17] MEDS: Heparin 5,000 UNITS/ML VIAL SC SCH ×2 (07:33→19:53)
[2023-01-17] MEDS: ALPRAZolam 0.25 MG TAB PO PRN ×2 (07:34→14:59)
[2023-01-17] MEDS: Ketorolac Tromethamine 30 MG/ML VIAL IVP PRN (07:34)
[2023-01-17] MEDS: Ondansetron PF 4 MG/2 ML Vial IVP PRN ×2 (07:34→14:59)
[2023-01-17] MEDS: Vancomycin (BATCH) 1.25 GM in Premix 1 BAG IVPB SCH ×2 (09:04→19:50)
[2023-01-17] MEDS: HYDROcodone/Acetaminophen 5/325 mg Tablet PO PRN ×3 (09:18→22:26)
[2023-01-17] MEDS: fentaNYL 50 mcg/mL 1 mL Vial SLOW IVP PRN ×2 (12:01→19:53)
[2023-01-17] MEDS: lamoTRIgine 25 MG TAB PO SCH (14:58)
[2023-01-17] MEDS: Mirtazapine 15 MG Soltab PO SCH (19:51)
[2023-01-17] MEDS: hydrOXYzine 25 MG TAB PO SCH (19:52)
[2023-01-17] MEDS: Atorvastatin Calcium 40 MG TAB PO SCH (19:52)
[2023-01-17] MEDS: PARoxetine 20 MG TAB PO SCH (19:52)
[2023-01-17] MEDS: Gabapentin 300 MG CAP PO SCH (19:52)
[2023-01-18] MEDS: fentaNYL 50 mcg/mL 1 mL Vial SLOW IVP PRN ×4 (01:30→22:16)
[2023-01-18] MEDS: HYDROcodone/Acetaminophen 5/325 mg Tablet PO PRN ×4 (06:50→20:59)
[2023-01-18 08:48] LABS: Anion Gap 16 mmol/L (10-20); BUN (Urea Nitrogen) 10 mg/dL (9.8-20.1); Calc. Creatinine Clearance 95 mL/min (70-130); Calcium 9.7 mg/dL (7.8-10.44); Carbon Dioxide 25 mmol/L (23-31); Chloride 98 mmol/L (98-107); Estimated GFR 99; Glucose 185 mg/dL (80-115); Magnesium 1.5 mg/dL (1.6-2.6); Phosphorus 3.8 mg/dL (2.3-4.7); Potassium 3.5 mmol/L (3.5-5.1); Sodium 135 mmol/L (136-145)
[2023-01-18] MEDS ORDERED: Magnesium 2 GM/50 ML(in water) 2 GM in Premix 1 BAG IVPB SCH (09:00)
[2023-01-18] MEDS ORDERED: Gabapentin 300 MG CAP PO SCH ×2 (09:15→16:30)
[2023-01-18] MEDS: Senokot S 8.6-50 MG TAB PO SCH (09:26)
[2023-01-18] MEDS: Aspirin 81 mg Enteric Coated Tablet PO SCH (09:26)
[2023-01-18] MEDS: metFORMIN 500 MG TAB PO SCH ×2 (09:26→17:45)
[2023-01-18] MEDS: Famotidine 20 MG TAB PO SCH ×2 (09:26→20:53)
[2023-01-18] MEDS: Lisinopril 10 MG TAB PO SCH (09:26)
[2023-01-18] MEDS: glipiZIDE 5 MG TAB PO SCH (09:27)
[2023-01-18] MEDS: Vancomycin (BATCH) 1.25 GM in Premix 1 BAG IVPB SCH ×2 (11:30→20:51)
[2023-01-18] MEDS: Heparin 5,000 UNITS/ML VIAL SC SCH ×2 (11:37→20:53)
[2023-01-18] MEDS: lamoTRIgine 25 MG TAB PO SCH (17:45)
[2023-01-18] MEDS: Mirtazapine 15 MG Soltab PO SCH (20:52)
[2023-01-18] MEDS: Gabapentin 300 MG CAP PO SCH (20:52)
[2023-01-18] MEDS: Atorvastatin Calcium 40 MG TAB PO SCH (20:52)
[2023-01-18] MEDS: hydrOXYzine 25 MG TAB PO SCH (20:53)
[2023-01-18] MEDS: PARoxetine 20 MG TAB PO SCH (20:53)
[2023-01-18] MEDS: ALPRAZolam 0.25 MG TAB PO PRN (22:16)
[2023-01-19] MEDS: HYDROcodone/Acetaminophen 5/325 mg Tablet PO PRN ×5 (00:35→18:40)
[2023-01-19] MEDS ORDERED: Gabapentin 300 MG CAP PO SCH (01:00)
[2023-01-19] MEDS ORDERED: Morphine 4 MG/ML VIAL SLOW IVP SCH (01:00)
[2023-01-19] MEDS ORDERED: Electrolyte Replacement Protocol FS SCH (01:00)
[2023-01-19] MEDS ORDERED: Morphine 2 MG/ML VIAL SLOW IVP SCH (01:00)
[2023-01-19] MEDS: fentaNYL 50 mcg/mL 1 mL Vial SLOW IVP PRN (03:29)
[2023-01-19] MEDS: ALPRAZolam 0.25 MG TAB PO PRN ×2 (06:20→20:10)
[2023-01-19 07:28] LABS: Anion Gap 14 mmol/L (10-20); BUN (Urea Nitrogen) 10 mg/dL (9.8-20.1); Calc. Creatinine Clearance 101 mL/min (70-130); Calcium 9.4 mg/dL (7.8-10.44); Carbon Dioxide 24 mmol/L (23-31); Chloride 99 mmol/L (98-107); Estimated GFR 100; Glucose 153 mg/dL (80-115); Magnesium 1.7 mg/dL (1.6-2.6); Potassium 3.4 mmol/L (3.5-5.1); Sodium 134 mmol/L (136-145)
[2023-01-19] MEDS: Aspirin 81 mg Enteric Coated Tablet PO SCH (08:10)
[2023-01-19] MEDS: metFORMIN 500 MG TAB PO SCH ×2 (08:10→16:09)
[2023-01-19] MEDS: Lisinopril 10 MG TAB PO SCH (08:11)
[2023-01-19] MEDS: glipiZIDE 5 MG TAB PO SCH (08:11)
[2023-01-19] MEDS: Heparin 5,000 UNITS/ML VIAL SC SCH ×2 (08:11→20:10)
[2023-01-19] MEDS: Senokot S 8.6-50 MG TAB PO SCH (08:11)
[2023-01-19] MEDS: Famotidine 20 MG TAB PO SCH ×2 (08:11→20:10)
[2023-01-19] MEDS: Morphine 2 MG/ML VIAL SLOW IVP PRN ×5 (08:17→23:31)
[2023-01-19] MEDS ORDERED: Lidocaine 4% Patch TD SCH (09:00)
[2023-01-19] MEDS: Vancomycin (BATCH) 1.25 GM in Premix 1 BAG IVPB SCH (10:10)
[2023-01-19] MEDS ORDERED: Potassium Chloride 20 MEQ TAB PO SCH (14:30)
[2023-01-19 14:37] LABS: Vancomycin, Random 30.7 ug/mL (See Comment)
[2023-01-19] MEDS: lamoTRIgine 25 MG TAB PO SCH (16:09)
[2023-01-19] MEDS: Gabapentin 300 MG CAP PO SCH ×2 (16:11→20:10)
[2023-01-19] MEDS: Mirtazapine 15 MG Soltab PO SCH (20:08)
[2023-01-19] MEDS: Atorvastatin Calcium 40 MG TAB PO SCH (20:09)
[2023-01-19] MEDS: PARoxetine 20 MG TAB PO SCH (20:09)
[2023-01-19] MEDS: hydrOXYzine 25 MG TAB PO SCH (20:10)
[2023-01-19] MEDS: Ondansetron PF 4 MG/2 ML Vial IVP PRN (21:06)
[2023-01-19] MEDS ORDERED: hydrOXYzine 25 MG TAB PO SCH (21:30)
[2023-01-19] MEDS ORDERED: Melatonin 3 MG TAB PO SCH (21:30)
[2023-01-20] MEDS: HYDROcodone/Acetaminophen 5/325 mg Tablet PO PRN ×4 (01:54→23:37)
[2023-01-20] MEDS: Morphine 2 MG/ML VIAL SLOW IVP PRN ×4 (03:27→17:01)
[2023-01-20 04:41] LABS: Hematocrit 26.9 % (36.0-47.0); Hemoglobin 8.1 g/dL (12.0-16.0)
[2023-01-20 05:03] LABS: Anion Gap 13 mmol/L (10-20); BUN (Urea Nitrogen) 13 mg/dL (9.8-20.1); Calc. Creatinine Clearance 97 mL/min (70-130); Calcium 8.9 mg/dL (7.8-10.44); Carbon Dioxide 23 mmol/L (23-31); Chloride 102 mmol/L (98-107); Estimated GFR 99; Glucose 180 mg/dL (80-115); Potassium 3.7 mmol/L (3.5-5.1); Sodium 134 mmol/L (136-145)
[2023-01-20] MEDS: glipiZIDE 5 MG TAB PO SCH (07:30)
[2023-01-20] MEDS: Lisinopril 10 MG TAB PO SCH (07:30)
[2023-01-20] MEDS: Aspirin 81 mg Enteric Coated Tablet PO SCH (07:30)
[2023-01-20] MEDS: metFORMIN 500 MG TAB PO SCH ×2 (07:30→17:31)
[2023-01-20] MEDS: Senokot S 8.6-50 MG TAB PO SCH (07:31)
[2023-01-20] MEDS: Famotidine 20 MG TAB PO SCH ×2 (07:31→21:57)
[2023-01-20] MEDS: Heparin 5,000 UNITS/ML VIAL SC SCH ×2 (07:31→22:01)
[2023-01-20] MEDS: Gabapentin 300 MG CAP PO SCH ×3 (07:31→21:57)
[2023-01-20] MEDS: ALPRAZolam 0.25 MG TAB PO PRN (11:24)
[2023-01-20] MEDS: fentaNYL 50 mcg/mL 1 mL Vial SLOW IVP PRN (13:16)
[2023-01-20] MEDS: Ondansetron PF 4 MG/2 ML Vial IVP PRN (17:01)
[2023-01-20] MEDS: lamoTRIgine 25 MG TAB PO SCH (17:31)
[2023-01-20] MEDS ORDERED: Ondansetron PF 4 MG/2 ML Vial IVP SCH (18:30)
[2023-01-20] MEDS ORDERED: Ondansetron PF 4 MG/2 ML Vial IVP PRN (18:47)
[2023-01-20] MEDS ORDERED: Ondansetron HCl/PF 8 MG in Sodium Chloride 0.9% 50 ML IVPB PRN (18:49)
[2023-01-20] MEDS: Morphine 4 MG/ML VIAL SLOW IVP PRN (21:09)
[2023-01-20] MEDS: Atorvastatin Calcium 40 MG TAB PO SCH (21:56)
[2023-01-20] MEDS: PARoxetine 20 MG TAB PO SCH (21:56)
[2023-01-20] MEDS: hydrOXYzine 25 MG TAB PO SCH (21:56)
[2023-01-20] MEDS: Mirtazapine 15 MG Soltab PO SCH (22:45)
[2023-01-21] MEDS: fentaNYL 50 mcg/mL 1 mL Vial SLOW IVP PRN (02:19)
[2023-01-21 05:27] LABS: Hematocrit 27.5 % (36.0-47.0); Hemoglobin 8.3 g/dL (12.0-16.0); Platelet Count 450 10x3/uL (130-400)
[2023-01-21] MEDS: HYDROcodone/Acetaminophen 5/325 mg Tablet PO PRN ×3 (05:27→19:25)
[2023-01-21] MEDS: Lisinopril 10 MG TAB PO SCH (08:50)
[2023-01-21] MEDS: Aspirin 81 mg Enteric Coated Tablet PO SCH (08:51)
[2023-01-21] MEDS: glipiZIDE 5 MG TAB PO SCH (08:51)
[2023-01-21] MEDS: Famotidine 20 MG TAB PO SCH ×2 (08:51→20:54)
[2023-01-21] MEDS: Gabapentin 300 MG CAP PO SCH ×3 (08:51→20:54)
[2023-01-21] MEDS: Senokot S 8.6-50 MG TAB PO SCH (08:53)
[2023-01-21] MEDS: metFORMIN 500 MG TAB PO SCH ×2 (08:53→19:20)
[2023-01-21] MEDS: Heparin 5,000 UNITS/ML VIAL SC SCH ×2 (08:53→20:55)
[2023-01-21] MEDS: Morphine 4 MG/ML VIAL SLOW IVP PRN ×4 (08:55→22:14)
[2023-01-21] MEDS: ALPRAZolam 0.25 MG TAB PO PRN (08:56)
[2023-01-21] MEDS: Ondansetron ODT 4 MG TAB PO PRN ×2 (16:19→22:14)
[2023-01-21] MEDS ORDERED: Prochlorperazine Edisylate 10 MG in Sodium Chloride 0.9% 50 ML IVPB PRN (16:26)
[2023-01-21] MEDS: lamoTRIgine 25 MG TAB PO SCH (19:20)
[2023-01-21] MEDS: PARoxetine 20 MG TAB PO SCH (20:54)
[2023-01-21] MEDS: hydrOXYzine 25 MG TAB PO SCH (20:55)
[2023-01-21] MEDS: Atorvastatin Calcium 40 MG TAB PO SCH (20:55)
[2023-01-21] MEDS: Mirtazapine 15 MG Soltab PO SCH (20:56)
[2023-01-22] MEDS: HYDROcodone/Acetaminophen 5/325 mg Tablet PO PRN ×6 (00:14→21:34)
[2023-01-22] MEDS: ALPRAZolam 0.25 MG TAB PO PRN (01:12)
[2023-01-22] MEDS: Acetaminophen 325 MG TAB PO PRN (01:13)
[2023-01-22] MEDS: Morphine 4 MG/ML VIAL SLOW IVP PRN ×6 (02:23→22:31)
[2023-01-22] MEDS: metFORMIN 500 MG TAB PO SCH ×2 (08:23→18:31)
[2023-01-22] MEDS: Aspirin 81 mg Enteric Coated Tablet PO SCH (08:23)
[2023-01-22] MEDS: Famotidine 20 MG TAB PO SCH ×2 (08:24→20:10)
[2023-01-22] MEDS: glipiZIDE 5 MG TAB PO SCH (08:24)
[2023-01-22] MEDS: Gabapentin 300 MG CAP PO SCH ×3 (08:24→20:10)
[2023-01-22] MEDS: Senokot S 8.6-50 MG TAB PO SCH (08:24)
[2023-01-22] MEDS: Lisinopril 10 MG TAB PO SCH (08:25)
[2023-01-22] MEDS: Heparin 5,000 UNITS/ML VIAL SC SCH ×2 (08:25→20:11)
[2023-01-22] MEDS: Ondansetron ODT 4 MG TAB PO PRN ×2 (15:30→21:34)
[2023-01-22] MEDS: lamoTRIgine 25 MG TAB PO SCH (16:26)
[2023-01-22] MEDS: Calcium Carbonate 500 MG ChewTAB PO PRN (19:30)
[2023-01-22] MEDS: Atorvastatin Calcium 40 MG TAB PO SCH (20:10)
[2023-01-22] MEDS: hydrOXYzine 25 MG TAB PO SCH (20:10)
[2023-01-22] MEDS: Mirtazapine 15 MG Soltab PO SCH (20:10)
[2023-01-22] MEDS: PARoxetine 20 MG TAB PO SCH (20:11)
[2023-01-23] MEDS: HYDROcodone/Acetaminophen 5/325 mg Tablet PO PRN ×4 (01:40→16:27)
[2023-01-23] MEDS: Morphine 4 MG/ML VIAL SLOW IVP PRN ×4 (03:39→20:20)
[2023-01-23] MEDS: HumaLOG 300 UNITS/3 ML VIAL SC PRN (06:22)
[2023-01-23] MEDS: glipiZIDE 5 MG TAB PO SCH (07:16)
[2023-01-23] MEDS: Heparin 5,000 UNITS/ML VIAL SC SCH ×2 (10:05→20:21)
[2023-01-23] MEDS: metFORMIN 500 MG TAB PO SCH ×2 (10:05→16:26)
[2023-01-23] MEDS: Gabapentin 300 MG CAP PO SCH ×3 (10:05→20:19)
[2023-01-23] MEDS: Aspirin 81 mg Enteric Coated Tablet PO SCH (10:05)
[2023-01-23] MEDS: Famotidine 20 MG TAB PO SCH ×2 (10:05→20:20)
[2023-01-23] MEDS: Calcium Carbonate 500 MG ChewTAB PO PRN ×2 (10:05→16:27)
[2023-01-23] MEDS: Lisinopril 10 MG TAB PO SCH (10:06)
[2023-01-23] MEDS: ALPRAZolam 0.25 MG TAB PO PRN ×3 (10:06→20:18)
[2023-01-23] MEDS: Senokot S 8.6-50 MG TAB PO SCH (10:06)
[2023-01-23] MEDS: Ondansetron ODT 4 MG TAB PO PRN (10:12)
[2023-01-23] MEDS: lamoTRIgine 25 MG TAB PO SCH (16:26)
[2023-01-23] MEDS: Mirtazapine 15 MG Soltab PO SCH (20:18)
[2023-01-23] MEDS: PARoxetine 20 MG TAB PO SCH (20:20)
[2023-01-23] MEDS: Atorvastatin Calcium 40 MG TAB PO SCH (20:20)
[2023-01-23] MEDS: hydrOXYzine 25 MG TAB PO SCH (20:20)
[2023-01-24] MEDS: glipiZIDE 5 MG TAB PO SCH (08:00)
[2023-01-24] MEDS: Gabapentin 300 MG CAP PO SCH ×2 (08:00→16:08)
[2023-01-24] MEDS: Aspirin 81 mg Enteric Coated Tablet PO SCH (08:01)
[2023-01-24] MEDS: Famotidine 20 MG TAB PO SCH (08:01)
[2023-01-24] MEDS: metFORMIN 500 MG TAB PO SCH ×2 (08:01→16:08)
[2023-01-24] MEDS: Heparin 5,000 UNITS/ML VIAL SC SCH (08:01)
[2023-01-24] MEDS: Lisinopril 10 MG TAB PO SCH (08:01)
[2023-01-24] MEDS: Morphine 4 MG/ML VIAL SLOW IVP PRN ×3 (08:02→16:08)
[2023-01-24] MEDS: Senokot S 8.6-50 MG TAB PO SCH (08:02)
[2023-01-24 08:32] VITALS: TEMP 98.4
[2023-01-24 15:54] VITALS: BP 113/70
[2023-01-24] MEDS: lamoTRIgine 25 MG TAB PO SCH (16:08)
[2023-01-24] MEDS: Calcium Carbonate 500 MG ChewTAB PO PRN (16:37)
[2023-01-24] MEDS: HYDROcodone/Acetaminophen 5/325 mg Tablet PO PRN (18:35)
== END 2023-01-24 18:51 | DRG 240 ==
LOC: ERS 11:04 → T4-B 17:54
PROVIDERS: ADMIT Hospitalist; ATTEND Family Medicine
PROC: 0Y6J0Z3 Detachment at Left Lower Leg, Low, Open Approach (ICD-10-PCS; principal; 2023-01-13)
DX: E11.52 Type 2 diabetes mellitus with diabetic peripheral angiopathy with gangrene (principal); I70.262 Atherosclerosis of native arteries of extremities with gangrene, left leg; Z91.041 Radiographic dye allergy status; Z88.0 Allergy status to penicillin; Z79.899 Other long term (current) drug therapy; Z79.84 Long term (current) use of oral hypoglycemic drugs; Z98.51 Tubal ligation status; F41.9 Anxiety disorder, unspecified; F31.9 Bipolar disorder, unspecified; Z87.891 Personal history of nicotine dependence; Z79.82 Long term (current) use of aspirin; E87.6 Hypokalemia; I25.10 Atherosclerotic heart disease of native coronary artery without angina pectoris; D63.8 Anemia in other chronic diseases classified elsewhere; Z98.890 Other specified postprocedural states; Z79.01 Long term (current) use of anticoagulants; Z79.4 Long term (current) use of insulin; E11.65 Type 2 diabetes mellitus with hyperglycemia; E83.42 Hypomagnesemia
CPT/HCPCS: 36415; 36416; 71045; 75635; 80048; 80053; 80202; 82947; 83605; 83735; 84100; 84484; 85014; 85018; 85025; 85049; 85610; 85730; 86140; 87040; 88307; 88311; 93005; 93010; 96365; 96366; 96367; 96375; 96376; J0360; J0692; J1170; J1200; J1644; J1815; J1885; J2270; J2272; J2370; J2405; J2704; J2920; J3010; J3370; J3475; J3480; J3490; J7050; Q0162; S0028

== ENCOUNTER 2023-01-31 14:34 | Inpatient (IN) | payer OTHER ==
[2023-01-31 15:21] LABS: #Eosinphils 0.2 thou/uL (0.0-0.7); #Monocytes 0.5 thou/uL (0.11-0.59); #Neutrophils 5.2 thou/uL (1.40-6.50); %Basophils 0.5 % (0.0-1.0); %Eosinophils 2.6 % (0.0-10.0); %Lymphocytes 21.7 % (21.0-51.0); %Monocytes 6.9 % (0.0-10.0); Hematocrit 26.8 % (36.0-47.0); Hemoglobin 8.1 g/dL (12.0-16.0); Mean Corpuscular HGB CONC 30.2 g/dL (32.0-36.0); Mean Corpuscular Hemoglobin 24.7 pg (27.0-31.0); Mean Corpuscular Volume 81.7 fl (78.0-98.0); Mean Platelet Volume 8.1 fL (7.4-10.4); Platelet Count 436 10x3/uL (130-400); RBC Distribution Width 16.2 % (11.5-14.5); Red Blood Cell (RBC) Count 3.28 mill/uL (4.20-5.40); White Blood Cell (WBC) Count 7.6 10x3/uL (4.8-10.8)
[2023-01-31 15:44] LABS: ALT (SGPT) 9 U/L (8-55); AST (SGOT) 11 U/L (5-34); Albumin 3.9 g/dL (3.4-4.8); Alkaline Phosphatase 136 U/L (40-110); Anion Gap 14 mmol/L (10-20); BUN (Urea Nitrogen) 10 mg/dL (9.8-20.1); Bilirubin, Total 0.3 mg/dL (0.2-1.2); Calc. Creatinine Clearance 0 mL/min (70-130); Calcium 9.2 mg/dL (7.8-10.44); Carbon Dioxide 23 mmol/L (23-31); Chloride 103 mmol/L (98-107); Estimated GFR 101; Globulin 3.7 g/dL (2.4-3.5); Glucose 63 mg/dL (80-115); Magnesium 1.3 mg/dL (1.6-2.6); Protein, Total 7.6 g/dL (5.8-8.1); Sodium 137 mmol/L (136-145)
[2023-01-31] MEDS ORDERED: Ondansetron PF 4 MG/2 ML Vial ONE (15:52)
[2023-01-31] MEDS ORDERED: Morphine 4 MG/ML VIAL ONE (15:52)
[2023-01-31] MEDS ORDERED: Magnesium 2 GM/50 ML BAG (IN WATER) ONE ×2 (15:52→18:06)
[2023-01-31] MEDS ORDERED: Sodium Chloride 0.9% 100 ML ONE ×2 (16:35→17:19)
[2023-01-31] MEDS ORDERED: Cefepime 2 GM VIAL ONE ×2 (16:35→17:19)
[2023-01-31] MEDS ORDERED: Vancomycin 1 GM/200 ML (FROZEN) BAG ONE (17:19)
[2023-01-31] MEDS ORDERED: Acetaminophen 650 MG Suppository PR PRN (17:35)
[2023-01-31] MEDS ORDERED: Ondansetron PF 4 MG/2 ML Vial IVP PRN (17:35)
[2023-01-31] MEDS ORDERED: Acetaminophen 325 MG TAB PO PRN (17:35)
[2023-01-31] MEDS ORDERED: HumaLOG 300 UNITS/3 ML VIAL SC PRN (17:38)
[2023-01-31] MEDS ORDERED: Glucagon 1 MG/ML KIT IM PRN (17:38)
[2023-01-31] MEDS ORDERED: Dextrose 50% Abboject 50 ML SYRINGE SLOW IVP PRN (17:38)
[2023-01-31] MEDS ORDERED: Dextrose 5% in Water 1,000 ML IV PRN (17:38)
[2023-01-31] MEDS ORDERED: Electrolyte Replacement Protocol 1 EACH FS SCH (17:45)
[2023-01-31] MEDS ORDERED: Potassium Chloride 20 MEQ TAB ONE (18:05)
[2023-01-31] MEDS ORDERED: traMADol HCl 50 MG TAB ONE (18:06)
[2023-01-31 18:32] LABS: Lactic Acid 1.9 mmol/L (0.5-2.2)
[2023-01-31] MEDS ORDERED: Sodium Chloride 0.9% 1,000 ML IV SCH (18:45)
[2023-01-31 20:21] VITALS: BMI 25.9
[2023-01-31] MEDS: Famotidine 20 MG TAB PO SCH (22:12)
[2023-01-31] MEDS: Gabapentin 300 MG CAP PO SCH (22:13)
[2023-01-31] MEDS: hydrOXYzine 25 MG TAB PO SCH (22:14)
[2023-01-31] MEDS: Morphine 2 MG/ML VIAL SLOW IVP PRN (22:15)
[2023-01-31] MEDS: Atorvastatin Calcium 40 MG TAB PO SCH (22:15)
[2023-01-31] MEDS: Heparin 5,000 UNITS/ML VIAL SC SCH (22:16)
[2023-01-31] MEDS: Ondansetron ODT 4 MG TAB PO PRN (22:17)
[2023-01-31] MEDS: Mirtazapine 15 MG Soltab PO SCH (22:35)
[2023-02-01] MEDS: HYDROcodone/Acetaminophen 5/325 mg Tablet PO PRN ×5 (01:52→23:19)
[2023-02-01] MEDS: Morphine 2 MG/ML VIAL SLOW IVP PRN ×4 (04:25→20:04)
[2023-02-01] MEDS ORDERED: Cefepime 1 GM in Sodium Chloride 0.9% 100 ML IVPB SCH (06:00)
[2023-02-01] MEDS ORDERED: Vancomycin 1 GM in Premix 1 BAG IVPB SCH (06:00)
[2023-02-01] MEDS: HumaLOG 300 UNITS/3 ML VIAL SC PRN ×2 (06:21→17:54)
[2023-02-01 06:47] LABS: #Eosinphils 0.3 thou/uL (0.0-0.7); #Monocytes 0.5 thou/uL (0.11-0.59); #Neutrophils 4.1 thou/uL (1.40-6.50); %Basophils 0.5 % (0.0-1.0); %Eosinophils 4.6 % (0.0-10.0); %Lymphocytes 24.8 % (21.0-51.0); %Monocytes 7.2 % (0.0-10.0); %Neutrophils 62.4 % (42.0-75.0); Hemoglobin 7.3 g/dL (12.0-16.0); Mean Corpuscular HGB CONC 29.2 g/dL (32.0-36.0); Mean Corpuscular Hemoglobin 23.9 pg (27.0-31.0); Mean Platelet Volume 8.3 fL (7.4-10.4); Platelet Count 423 10x3/uL (130-400); RBC Distribution Width 16.4 % (11.5-14.5); Red Blood Cell (RBC) Count 3.05 mill/uL (4.20-5.40); White Blood Cell (WBC) Count 6.6 10x3/uL (4.8-10.8)
[2023-02-01 07:18] LABS: Anion Gap 11 mmol/L (10-20); BUN (Urea Nitrogen) 8 mg/dL (9.8-20.1); Calc. Creatinine Clearance 106 mL/min (70-130); Calcium 8.3 mg/dL (7.8-10.44); Carbon Dioxide 23 mmol/L (23-31); Chloride 107 mmol/L (98-107); Estimated GFR 101; Glucose 168 mg/dL (80-115); Magnesium 1.8 mg/dL (1.6-2.6); Potassium 3.5 mmol/L (3.5-5.1); Sodium 137 mmol/L (136-145)
[2023-02-01] MEDS ORDERED: Magnesium 2 GM/50 ML(in water) 2 GM in Premix 1 BAG IVPB SCH (08:00)
[2023-02-01] MEDS ORDERED: Potassium Chloride 20 MEQ TAB PO SCH (08:00)
[2023-02-01] MEDS: Gabapentin 300 MG CAP PO SCH ×3 (08:05→20:03)
[2023-02-01] MEDS: Famotidine 20 MG TAB PO SCH ×2 (08:05→20:03)
[2023-02-01] MEDS: Lisinopril 10 MG TAB PO SCH (08:05)
[2023-02-01] MEDS: Aspirin 81 mg Enteric Coated Tablet PO SCH (08:06)
[2023-02-01] MEDS: Heparin 5,000 UNITS/ML VIAL SC SCH ×3 (08:06→20:05)
[2023-02-01] MEDS ORDERED: lamoTRIgine 25 MG TAB PO SCH (17:00)
[2023-02-01] MEDS: Atorvastatin Calcium 40 MG TAB PO SCH (20:02)
[2023-02-01] MEDS: hydrOXYzine 25 MG TAB PO SCH (20:02)
[2023-02-01] MEDS: Ondansetron ODT 4 MG TAB PO PRN (20:03)
[2023-02-01] MEDS: Mirtazapine 15 MG Soltab PO SCH (20:04)
[2023-02-01 23:22] VITALS: TEMP 98.3
[2023-02-02] MEDS: Morphine 2 MG/ML VIAL SLOW IVP PRN ×3 (03:21→13:53)
[2023-02-02] MEDS: HYDROcodone/Acetaminophen 5/325 mg Tablet PO PRN ×3 (05:49→15:43)
[2023-02-02] MEDS: HumaLOG 300 UNITS/3 ML VIAL SC PRN (05:50)
[2023-02-02 06:58] LABS: #Eosinphils 0.3 thou/uL (0.0-0.7); #Monocytes 0.5 thou/uL (0.11-0.59); #Neutrophils 2.7 thou/uL (1.40-6.50); %Basophils 0.5 % (0.0-1.0); %Eosinophils 6.2 % (0.0-10.0); %Lymphocytes 34.5 % (21.0-51.0); %Monocytes 8.9 % (0.0-10.0); %Neutrophils 49.5 % (42.0-75.0); Hematocrit 27.2 % (36.0-47.0); Hemoglobin 8.2 g/dL (12.0-16.0); Mean Corpuscular HGB CONC 30.1 g/dL (32.0-36.0); Mean Corpuscular Hemoglobin 24.6 pg (27.0-31.0); Mean Corpuscular Volume 81.7 fl (78.0-98.0); Mean Platelet Volume 8.2 fL (7.4-10.4); Platelet Count 461 10x3/uL (130-400); RBC Distribution Width 16.1 % (11.5-14.5); Red Blood Cell (RBC) Count 3.33 mill/uL (4.20-5.40); White Blood Cell (WBC) Count 5.5 10x3/uL (4.8-10.8)
[2023-02-02 07:14] LABS: Vancomycin, Trough 3.7 ug/mL
[2023-02-02 07:27] LABS: Anion Gap 12 mmol/L (10-20); BUN (Urea Nitrogen) 7 mg/dL (9.8-20.1); Calc. Creatinine Clearance 107 mL/min (70-130); Calcium 9.6 mg/dL (7.8-10.44); Carbon Dioxide 24 mmol/L (23-31); Chloride 105 mmol/L (98-107); Estimated GFR 102; Glucose 138 mg/dL (80-115); Sodium 137 mmol/L (136-145)
[2023-02-02] MEDS: Aspirin 81 mg Enteric Coated Tablet PO SCH (08:32)
[2023-02-02] MEDS: Gabapentin 300 MG CAP PO SCH ×2 (08:32→14:43)
[2023-02-02] MEDS: Lisinopril 10 MG TAB PO SCH (08:32)
[2023-02-02] MEDS: Heparin 5,000 UNITS/ML VIAL SC SCH ×2 (08:33→14:45)
[2023-02-02] MEDS: Famotidine 20 MG TAB PO SCH (08:33)
[2023-02-02 11:53] VITALS: BP 156/88
== END 2023-02-02 16:00 | disposition home or self-care (01) | DRG 565 ==
LOC: ERS 14:34 → OBSVTOIN 17:50 → T4-B 17:50
PROVIDERS: ADMIT Internal Medicine; ATTEND Internal Medicine
DX: T87.89 Other complications of amputation stump (principal); E11.52 Type 2 diabetes mellitus with diabetic peripheral angiopathy with gangrene; I10 Essential (primary) hypertension; F42.9 Obsessive-compulsive disorder, unspecified; F41.9 Anxiety disorder, unspecified; F20.9 Schizophrenia, unspecified; F31.9 Bipolar disorder, unspecified; E83.42 Hypomagnesemia; E87.6 Hypokalemia; E78.5 Hyperlipidemia, unspecified; Z98.890 Other specified postprocedural states; Z88.1 Allergy status to other antibiotic agents; Z88.0 Allergy status to penicillin; Z91.041 Radiographic dye allergy status; Z79.899 Other long term (current) drug therapy; Z79.82 Long term (current) use of aspirin; Z79.84 Long term (current) use of oral hypoglycemic drugs; Z90.49 Acquired absence of other specified parts of digestive tract; Z98.51 Tubal ligation status; Z82.49 Family history of ischemic heart disease and other diseases of the circulatory system; Z83.3 Family history of diabetes mellitus; Z87.891 Personal history of nicotine dependence
CPT/HCPCS: 36415; 36416; 80048; 80053; 80202; 83605; 83735; 85025; 87040; 87070; 87077; 87186; 87205; 96365; 96367; 96368; 96375; 97139; J0692; J1644; J2270; J2272; J2405; J3370-JW; J3475; J3490; J7050; Q0162

== ENCOUNTER 2023-04-06 13:17 | Inpatient (IN) | payer OTHER ==
[2023-04-06 13:42] LABS: #Basophils 0.1 thou/uL (0.0-0.2); #Eosinphils 0.2 thou/uL (0.0-0.7); #Monocytes 0.6 thou/uL (0.11-0.59); #Neutrophils 5.1 thou/uL (1.40-6.50); %Basophils 0.8 % (0.0-1.0); %Eosinophils 2.2 % (0.0-10.0); %Lymphocytes 27.8 % (21.0-51.0); %Monocytes 7.5 % (0.0-10.0); %Neutrophils 61.3 % (42.0-75.0); Hematocrit 29.6 % (36.0-47.0); Hemoglobin 8.4 g/dL (12.0-16.0); Mean Corpuscular HGB CONC 28.4 g/dL (32.0-36.0); Mean Corpuscular Hemoglobin 21.3 pg (27.0-31.0); Mean Corpuscular Volume 75.1 fl (78.0-98.0); Mean Platelet Volume 8.7 fL (7.4-10.4); Platelet Count 474 10x3/uL (130-400); RBC Distribution Width 16.1 % (11.5-14.5); Red Blood Cell (RBC) Count 3.94 mill/uL (4.20-5.40); White Blood Cell (WBC) Count 8.3 10x3/uL (4.8-10.8)
[2023-04-06 14:06] LABS: ALT (SGPT) 10 U/L (8-55); AST (SGOT) 14 U/L (5-34); Albumin 3.5 g/dL (3.4-4.8); Alkaline Phosphatase 157 U/L (40-110); Anion Gap 18 mmol/L (10-20); BUN (Urea Nitrogen) 18 mg/dL (9.8-20.1); Bilirubin, Total 0.2 mg/dL (0.2-1.2); Calc. Creatinine Clearance 0 mL/min (70-130); Calcium 8.5 mg/dL (7.8-10.44); Carbon Dioxide 18 mmol/L (23-31); Chloride 103 mmol/L (98-107); Estimated GFR 80; Globulin 4.4 g/dL (2.4-3.5); Glucose 243 mg/dL (80-115); Potassium 4.4 mmol/L (3.5-5.1); Protein, Total 7.9 g/dL (5.8-8.1); Sodium 135 mmol/L (136-145)
[2023-04-06 14:23] LABS: SARS-CoV-2 NAA Rapid Test Not Detected (NotDetected)
[2023-04-06 14:34] LABS: CellaVision Operator ID LAB.KB; Hypochromia SLIGHT = 6-15 cells HPF (0-5); Microcytosis SLIGHT = 6-15 cells HPF (0-5); Ovalocytes SLIGHT = 2-5 cells HPF (0-1); Platelet Adequacy Comment Platelets Increased; Polychromasia SLIGHT = 2-3 cells HPF (0-2)
[2023-04-06] MEDS ORDERED: Cefepime 2 GM VIAL ONE (14:44)
[2023-04-06] MEDS ORDERED: Sodium Chloride 0.9% 100 ML ONE (14:44)
[2023-04-06] MEDS ORDERED: Ondansetron PF 4 MG/2 ML Vial ONE (14:50)
[2023-04-06] MEDS ORDERED: Morphine 4 MG/ML VIAL ONE (14:50)
[2023-04-06] MEDS ORDERED: Vancomycin (BATCH) 2 GM/500 ML BAG ONE (14:51)
[2023-04-06] MEDS ORDERED: Vancomycin (BATCH) 1.5 GM in Premix 1 BAG IVPB SCH (15:00)
[2023-04-06 15:54] LABS: Actual Bicarbonate (HCO3v) 22.8 mEq/L (22-28); Base Excess -2.3 mEq/L (-2.0 to +3.0); Calcium, Ionized (venous) 1.08 mmol/L (1.16-1.32); Chloride (VBG) 103 mmol/L (98-106); Hematocrit-VBG 27 % (36.0-47.0); Hemoglobin (Hb) 9.3 g/dL (11.7-16.0); Potassium (VBG) 3.96 mmol/L (3.70-5.30); Sodium 136 mmol/L (133-146); pH (venous) 7.372 (7.32-7.43)
[2023-04-06 15:58] LABS: Bacteria/HPF None Seen HPF (None Seen); Bilirubin Negative (Negative); Blood, Urine Negative (Negative); Clarity Clear (Clear); Glucose, Urine (Dipstick) >=1000 mg/dL (Negative); Ketone, Urine Negative (Negative); Leukocyte 500 Leu/uL (Negative); Nitrite Negative (Negative); Protein, Urine (Dipstick) 30 mg/dL (Neg-Trace); Specific Gravity, Urine 1.025 (1.002-1.036); Squamous Epithelial 0-3 HPF (0-3); WBC/HPF 21-50 HPF (0-3)
[2023-04-06 16:01] LABS: Urine Culture Reflex Yes Yes
[2023-04-06] MEDS ORDERED: Ondansetron PF 4 MG/2 ML Vial IVP PRN (16:46)
[2023-04-06] MEDS ORDERED: Ondansetron ODT 4 MG TAB PO PRN (16:46)
[2023-04-06] MEDS ORDERED: Acetaminophen 650 MG Suppository PR PRN (16:46)
[2023-04-06] MEDS ORDERED: HumaLOG 300 UNITS/3 ML VIAL SC PRN ×2 (16:46)
[2023-04-06] MEDS ORDERED: Dextrose 50% Abboject 50 ML SYRINGE SLOW IVP PRN (16:46)
[2023-04-06] MEDS ORDERED: Senokot S 8.6-50 MG TAB PO PRN (16:46)
[2023-04-06] MEDS ORDERED: Dextrose 5% in Water 1,000 ML IV PRN (16:46)
[2023-04-06] MEDS ORDERED: Glucagon 1 MG/ML KIT IM PRN (16:46)
[2023-04-06] MEDS ORDERED: Polyethylene Glycol 3350 17 GM Packet PO PRN (16:54)
[2023-04-06] MEDS ORDERED: Albuterol 200 PUFF (6.7GM INHALER) INH PRN (16:55)
[2023-04-06] MEDS ORDERED: tiZANidine HCl 4 MG TAB PO PRN (16:56)
[2023-04-06] MEDS ORDERED: Sodium Chloride 0.9% 1,000 ML IV SCH (17:00)
[2023-04-06] MEDS: Atorvastatin Calcium 40 MG TAB PO SCH (20:09)
[2023-04-06] MEDS: Mirtazapine 15 MG TAB PO SCH (20:10)
[2023-04-06] MEDS: PARoxetine 20 MG TAB PO SCH (20:10)
[2023-04-06] MEDS: HYDROcodone/Acetaminophen 5/325 mg Tablet PO PRN (20:13)
[2023-04-06] MEDS: Gabapentin 300 MG CAP PO SCH (20:13)
[2023-04-06] MEDS: Acetaminophen 325 MG TAB PO PRN (20:22)
[2023-04-06] MEDS ORDERED: Vancomycin 1 GM in Sodium Chloride 0.9% 250 ML 300 ML IVPB SCH (21:00)
[2023-04-06 21:55] VITALS: BMI 29.8
[2023-04-07] MEDS: Morphine 2 MG/ML VIAL SLOW IVP PRN ×2 (00:50→05:15)
[2023-04-07] MEDS ORDERED: Cefepime 1 GM in Sodium Chloride 0.9% 100 ML IVPB SCH (03:00)
[2023-04-07] MEDS ORDERED: Vancomycin 1 GM in Premix 1 BAG IVPB SCH (03:00)
[2023-04-07] MEDS: HYDROcodone/Acetaminophen 5/325 mg Tablet PO PRN ×3 (03:30→20:07)
[2023-04-07] MEDS: Acetaminophen 325 MG TAB PO PRN (03:30)
[2023-04-07 06:24] LABS: #Basophils 0.1 thou/uL (0.0-0.2); #Eosinphils 0.2 thou/uL (0.0-0.7); #Monocytes 0.6 thou/uL (0.11-0.59); #Neutrophils 3.7 thou/uL (1.40-6.50); %Basophils 0.8 % (0.0-1.0); %Eosinophils 3.2 % (0.0-10.0); %Lymphocytes 24.2 % (21.0-51.0); %Monocytes 9.6 % (0.0-10.0); %Neutrophils 61.9 % (42.0-75.0); Hematocrit 25.8 % (36.0-47.0); Hemoglobin 7.3 g/dL (12.0-16.0); Mean Corpuscular HGB CONC 28.3 g/dL (32.0-36.0); Mean Corpuscular Hemoglobin 20.9 pg (27.0-31.0); Mean Corpuscular Volume 73.9 fl (78.0-98.0); Mean Platelet Volume 8.5 fL (7.4-10.4); Platelet Count 384 10x3/uL (130-400); RBC Distribution Width 16.2 % (11.5-14.5); Red Blood Cell (RBC) Count 3.49 mill/uL (4.20-5.40); White Blood Cell (WBC) Count 5.9 10x3/uL (4.8-10.8)
[2023-04-07 06:51] LABS: Anion Gap 13 mmol/L (10-20); BUN (Urea Nitrogen) 15 mg/dL (9.8-20.1); Calc. Creatinine Clearance 102 mL/min (70-130); Calcium 8.8 mg/dL (7.8-10.44); Carbon Dioxide 22 mmol/L (23-31); Chloride 103 mmol/L (98-107); Estimated GFR 97; Glucose 315 mg/dL (80-115); Potassium 3.9 mmol/L (3.5-5.1); Sodium 134 mmol/L (136-145)
[2023-04-07] MEDS: Enoxaparin 40 MG (0.4 mL) SYRINGE SC SCH (08:34)
[2023-04-07] MEDS: Lisinopril 10 MG TAB PO SCH (08:34)
[2023-04-07] MEDS: Aspirin 81 mg Enteric Coated Tablet PO SCH (08:34)
[2023-04-07] MEDS: Gabapentin 300 MG CAP PO SCH ×3 (08:34→19:50)
[2023-04-07] MEDS: lamoTRIgine 100 MG TAB PO SCH (08:34)
[2023-04-07] MEDS ORDERED: OLANZapine 5 MG TAB PO SCH (09:00)
[2023-04-07] MEDS: Morphine 4 MG/ML VIAL SLOW IVP PRN ×2 (11:13→15:33)
[2023-04-07] MEDS: tiZANidine HCl 4 MG TAB PO SCH ×2 (15:05→19:50)
[2023-04-07] MEDS: traMADol HCl 50 MG TAB PO SCH (17:08)
[2023-04-07] MEDS: metFORMIN 500 MG TAB PO SCH (17:08)
[2023-04-07] MEDS: Atorvastatin Calcium 40 MG TAB PO SCH (19:47)
[2023-04-07] MEDS: OLANZapine 5 MG TAB PO SCH (19:48)
[2023-04-07] MEDS: PARoxetine 20 MG TAB PO SCH (19:48)
[2023-04-07] MEDS: Mirtazapine 15 MG TAB PO SCH (19:49)
[2023-04-07] MEDS: Insulin Regular 300 UNITS/3 ML VIAL SC PRN (19:56)
[2023-04-07] MEDS ORDERED: Mag-Al 1200 mg/1200 mg/30 ML UDCUP PO PRN (21:41)
[2023-04-08] MEDS: Acetaminophen 325 MG TAB PO PRN (00:15)
[2023-04-08] MEDS: traMADol HCl 50 MG TAB PO SCH ×5 (00:15→23:57)
[2023-04-08] MEDS: Morphine 4 MG/ML VIAL SLOW IVP PRN ×4 (04:22→22:23)
[2023-04-08 04:38] LABS: #Eosinphils 0.2 thou/uL (0.0-0.7); #Monocytes 0.6 thou/uL (0.11-0.59); #Neutrophils 3.1 thou/uL (1.40-6.50); %Basophils 0.7 % (0.0-1.0); %Eosinophils 3.7 % (0.0-10.0); %Lymphocytes 30.1 % (21.0-51.0); %Monocytes 10.5 % (0.0-10.0); %Neutrophils 54.6 % (42.0-75.0); Hematocrit 27.1 % (36.0-47.0); Hemoglobin 7.8 g/dL (12.0-16.0); Mean Corpuscular HGB CONC 28.8 g/dL (32.0-36.0); Mean Corpuscular Hemoglobin 20.9 pg (27.0-31.0); Mean Corpuscular Volume 72.7 fl (78.0-98.0); Mean Platelet Volume 8.6 fL (7.4-10.4); Platelet Count 424 10x3/uL (130-400); RBC Distribution Width 16.1 % (11.5-14.5); Red Blood Cell (RBC) Count 3.73 mill/uL (4.20-5.40); White Blood Cell (WBC) Count 5.7 10x3/uL (4.8-10.8)
[2023-04-08 05:13] LABS: Anion Gap 12 mmol/L (10-20); BUN (Urea Nitrogen) 15 mg/dL (9.8-20.1); Calc. Creatinine Clearance 102 mL/min (70-130); Calcium 9.7 mg/dL (7.8-10.44); Carbon Dioxide 23 mmol/L (23-31); Chloride 101 mmol/L (98-107); Estimated GFR 97; Glucose 295 mg/dL (80-115); Sodium 132 mmol/L (136-145)
[2023-04-08 05:17] LABS: Anisocytosis MARKED = >30 cells HPF (0-5); CellaVision Operator ID LAB.JMM; Elliptocytes SLIGHT = 2-5 cells HPF (0-1); Hypochromia SLIGHT = 6-15 cells HPF (0-5); Platelet Adequacy Comment Platelets Normal; Polychromasia SLIGHT = 2-3 cells HPF (0-2); Tear Drops SLIGHT = 2-5 cells HPF (0-1)
[2023-04-08] MEDS: Insulin Regular 300 UNITS/3 ML VIAL SC PRN ×3 (06:13→19:59)
[2023-04-08] MEDS: Enoxaparin 40 MG (0.4 mL) SYRINGE SC SCH (07:54)
[2023-04-08] MEDS: glipiZIDE 5 MG TAB PO SCH (07:55)
[2023-04-08] MEDS: metFORMIN 500 MG TAB PO SCH ×2 (07:56→16:57)
[2023-04-08] MEDS: Gabapentin 300 MG CAP PO SCH ×3 (07:56→19:55)
[2023-04-08] MEDS: Clopidogrel Bisulfate 75 MG TAB PO SCH (07:56)
[2023-04-08] MEDS: lamoTRIgine 100 MG TAB PO SCH (07:56)
[2023-04-08] MEDS: Lisinopril 10 MG TAB PO SCH (07:56)
[2023-04-08] MEDS: Aspirin 81 mg Enteric Coated Tablet PO SCH (07:56)
[2023-04-08] MEDS: tiZANidine HCl 4 MG TAB PO SCH ×3 (07:57→19:56)
[2023-04-08] MEDS ORDERED: PROPOFOL 20 ML ONE (11:21)
[2023-04-08] MEDS ORDERED: fentaNYL PF 100 MCG/2 ML SYRINGE ONE (11:21)
[2023-04-08] MEDS ORDERED: Cefepime 1 GM VIAL ONE ×2 (11:47→11:51)
[2023-04-08] MEDS ORDERED: Famotidine/PF 20 mg/2ml Vial ONE (11:47)
[2023-04-08] MEDS ORDERED: Sodium Chloride 0.9% 100 ML ONE (11:47)
[2023-04-08] MEDS ORDERED: Vancomycin (BATCH) 1.5 GM/300 ML BAG ONE (11:48)
[2023-04-08] MEDS ORDERED: Lidocaine 1% PF 5 ML VIAL ONE (11:51)
[2023-04-08] MEDS ORDERED: Rocuronium Bromide 10 MG/ML (10ML VIAL) ONE (11:51)
[2023-04-08] MEDS ORDERED: HYDROmorphone 2 MG/ML VIAL ONE (12:14)
[2023-04-08] MEDS ORDERED: PHENYLEPHRINE-NS 100 MCG/ML 10 ML SYRINGE ONE (12:25)
[2023-04-08] MEDS ORDERED: SUGAMMADEX SODIUM 200 MG/2 ML VIAL ONE (12:26)
[2023-04-08] MEDS ORDERED: ePHEDrine Sulfate 50 MG/10 ML VIAL ONE (12:27)
[2023-04-08] MEDS ORDERED: Promethazine HCl 25 MG/ML VIAL IM PRN (12:38)
[2023-04-08] MEDS ORDERED: Ondansetron HCl/PF 4 MG/2 ML Vial IVP PRN (12:38)
[2023-04-08] MEDS ORDERED: Meperidine HCl/PF 25 MG/ML VIAL SLOW IVP PRN (12:38)
[2023-04-08] MEDS ORDERED: HYDROmorphone 2 MG/ML VIAL SLOW IVP PRN (12:38)
[2023-04-08] MEDS ORDERED: fentaNYL 50 mcg/mL 1 mL Vial ONE ×2 (13:10→13:32)
[2023-04-08] MEDS ORDERED: Vancomycin (BATCH) 1.5 GM in Premix 1 BAG IVPB SCH (14:00)
[2023-04-08] MEDS: Mirtazapine 15 MG TAB PO SCH (19:55)
[2023-04-08] MEDS: HYDROcodone/Acetaminophen 5/325 mg Tablet PO PRN (19:56)
[2023-04-08] MEDS: PARoxetine 20 MG TAB PO SCH (19:56)
[2023-04-08] MEDS: Atorvastatin Calcium 40 MG TAB PO SCH (19:56)
[2023-04-08] MEDS: OLANZapine 5 MG TAB PO SCH (19:56)
[2023-04-08] MEDS ORDERED: Vancomycin (BATCH) 1.25 GM in Premix 1 BAG IVPB SCH (21:00)
[2023-04-09] MEDS: HYDROcodone/Acetaminophen 5/325 mg Tablet PO PRN ×3 (01:32→20:24)
[2023-04-09] MEDS: Morphine 4 MG/ML VIAL SLOW IVP PRN ×3 (02:47→18:30)
[2023-04-09 04:48] LABS: Anion Gap 15 mmol/L (10-20); BUN (Urea Nitrogen) 30 mg/dL (9.8-20.1); CRP (Inflammatory) 3.38 mg/dL (= or < 0.5); Calc. Creatinine Clearance 75 mL/min (70-130); Calcium 8.6 mg/dL (7.8-10.44); Carbon Dioxide 22 mmol/L (23-31); Chloride 99 mmol/L (98-107); Estimated GFR 66; Glucose 254 mg/dL (80-115); Potassium 4.3 mmol/L (3.5-5.1); Sodium 132 mmol/L (136-145)
[2023-04-09] MEDS: Vancomycin 1 GM in Premix 1 BAG IVPB SCH ×2 (05:40→17:15)
[2023-04-09 05:41] LABS: #Eosinphils 0.2 thou/uL (0.0-0.7); #Monocytes 0.7 thou/uL (0.11-0.59); #Neutrophils 4.8 thou/uL (1.40-6.50); %Basophils 0.4 % (0.0-1.0); %Eosinophils 2.9 % (0.0-10.0); %Lymphocytes 26.3 % (21.0-51.0); %Monocytes 9.1 % (0.0-10.0); Hematocrit 24.5 % (36.0-47.0); Hemoglobin 7.1 g/dL (12.0-16.0); Mean Corpuscular Hemoglobin 21.1 pg (27.0-31.0); Mean Corpuscular Volume 72.9 fl (78.0-98.0); Mean Platelet Volume 8.6 fL (7.4-10.4); Platelet Count 423 10x3/uL (130-400); RBC Distribution Width 16.4 % (11.5-14.5); Red Blood Cell (RBC) Count 3.36 mill/uL (4.20-5.40); White Blood Cell (WBC) Count 7.8 10x3/uL (4.8-10.8)
[2023-04-09] MEDS: traMADol HCl 50 MG TAB PO SCH ×3 (05:41→17:14)
[2023-04-09] MEDS: Insulin Regular 300 UNITS/3 ML VIAL SC PRN ×4 (05:57→20:26)
[2023-04-09] MEDS: tiZANidine HCl 4 MG TAB PO SCH ×3 (08:52→20:24)
[2023-04-09] MEDS: Enoxaparin 40 MG (0.4 mL) SYRINGE SC SCH (08:52)
[2023-04-09] MEDS: metFORMIN 500 MG TAB PO SCH ×2 (08:53→17:15)
[2023-04-09] MEDS: Aspirin 81 mg Enteric Coated Tablet PO SCH (08:53)
[2023-04-09] MEDS: Lisinopril 10 MG TAB PO SCH (08:53)
[2023-04-09] MEDS: glipiZIDE 5 MG TAB PO SCH (08:53)
[2023-04-09] MEDS: lamoTRIgine 100 MG TAB PO SCH (08:53)
[2023-04-09] MEDS: Gabapentin 300 MG CAP PO SCH ×3 (08:53→20:26)
[2023-04-09] MEDS: Clopidogrel Bisulfate 75 MG TAB PO SCH (08:53)
[2023-04-09] MEDS: OLANZapine 5 MG TAB PO SCH (20:24)
[2023-04-09] MEDS: PARoxetine 20 MG TAB PO SCH (20:24)
[2023-04-09] MEDS: Atorvastatin Calcium 40 MG TAB PO SCH (20:24)
[2023-04-09] MEDS: Mirtazapine 15 MG TAB PO SCH (20:24)
[2023-04-10] MEDS: traMADol HCl 50 MG TAB PO SCH ×5 (00:13→23:44)
[2023-04-10] MEDS: HYDROcodone/Acetaminophen 5/325 mg Tablet PO PRN ×3 (00:15→15:49)
[2023-04-10 05:17] LABS: Vancomycin, Trough 13.7 ug/mL
[2023-04-10] MEDS: Vancomycin 1 GM in Premix 1 BAG IVPB SCH ×2 (06:03→15:50)
[2023-04-10 08:50] LABS: #Eosinphils 0.2 thou/uL (0.0-0.7); #Monocytes 0.9 thou/uL (0.11-0.59); #Neutrophils 6.6 thou/uL (1.40-6.50); %Basophils 0.4 % (0.0-1.0); %Eosinophils 2.4 % (0.0-10.0); %Lymphocytes 20.3 % (21.0-51.0); %Monocytes 9.5 % (0.0-10.0); %Neutrophils 66.7 % (42.0-75.0); Hematocrit 25.7 % (36.0-47.0); Hemoglobin 7.5 g/dL (12.0-16.0); Mean Corpuscular HGB CONC 29.2 g/dL (32.0-36.0); Mean Corpuscular Hemoglobin 21.1 pg (27.0-31.0); Mean Corpuscular Volume 72.4 fl (78.0-98.0); Mean Platelet Volume 8.3 fL (7.4-10.4); Platelet Count 385 10x3/uL (130-400); RBC Distribution Width 16.4 % (11.5-14.5); Red Blood Cell (RBC) Count 3.55 mill/uL (4.20-5.40); White Blood Cell (WBC) Count 9.9 10x3/uL (4.8-10.8)
[2023-04-10] MEDS: Clopidogrel Bisulfate 75 MG TAB PO SCH (09:00)
[2023-04-10] MEDS: Aspirin 81 mg Enteric Coated Tablet PO SCH (09:00)
[2023-04-10] MEDS: Gabapentin 300 MG CAP PO SCH ×3 (09:00→20:13)
[2023-04-10] MEDS: glipiZIDE 5 MG TAB PO SCH (09:00)
[2023-04-10] MEDS: metFORMIN 500 MG TAB PO SCH ×2 (09:00→15:50)
[2023-04-10] MEDS: Morphine 4 MG/ML VIAL SLOW IVP PRN ×2 (09:01→18:03)
[2023-04-10] MEDS: Lisinopril 10 MG TAB PO SCH (09:01)
[2023-04-10] MEDS: lamoTRIgine 100 MG TAB PO SCH (09:01)
[2023-04-10] MEDS: tiZANidine HCl 4 MG TAB PO SCH ×3 (09:01→20:14)
[2023-04-10] MEDS: Enoxaparin 40 MG (0.4 mL) SYRINGE SC SCH (09:01)
[2023-04-10 09:16] LABS: ALT (SGPT) 16 U/L (8-55); AST (SGOT) 16 U/L (5-34); Albumin 3.5 g/dL (3.4-4.8); Alkaline Phosphatase 136 U/L (40-110); Anion Gap 12 mmol/L (10-20); BUN (Urea Nitrogen) 22 mg/dL (9.8-20.1); Bilirubin, Total 0.4 mg/dL (0.2-1.2); Calc. Creatinine Clearance 96 mL/min (70-130); Calcium 9.5 mg/dL (7.8-10.44); Carbon Dioxide 24 mmol/L (23-31); Chloride 98 mmol/L (98-107); Estimated GFR 89; Globulin 4.1 g/dL (2.4-3.5); Glucose 264 mg/dL (80-115); Potassium 4.2 mmol/L (3.5-5.1); Protein, Total 7.6 g/dL (5.8-8.1); Sodium 130 mmol/L (136-145)
[2023-04-10 09:30] LABS: CellaVision Operator ID LAB.KB; Hypochromia SLIGHT = 6-15 cells HPF (0-5); Microcytosis SLIGHT = 6-15 cells HPF (0-5); Ovalocytes SLIGHT = 2-5 cells HPF (0-1); Platelet Adequacy Comment Platelets Normal; Polychromasia SLIGHT = 2-3 cells HPF (0-2)
[2023-04-10] MEDS: Insulin Regular 300 UNITS/3 ML VIAL SC PRN ×2 (13:32→18:04)
[2023-04-10] MEDS: PARoxetine 20 MG TAB PO SCH (20:13)
[2023-04-10] MEDS: Mirtazapine 15 MG TAB PO SCH (20:14)
[2023-04-10] MEDS: Atorvastatin Calcium 40 MG TAB PO SCH (20:14)
[2023-04-10] MEDS: OLANZapine 5 MG TAB PO SCH (20:14)
[2023-04-10 23:47] VITALS: TEMP 98.5
[2023-04-11] MEDS: Vancomycin 1 GM in Premix 1 BAG IVPB SCH (05:10)
[2023-04-11] MEDS: traMADol HCl 50 MG TAB PO SCH ×2 (05:10→11:37)
[2023-04-11] MEDS: Aspirin 81 mg Enteric Coated Tablet PO SCH (08:07)
[2023-04-11] MEDS: Lisinopril 10 MG TAB PO SCH (08:07)
[2023-04-11] MEDS: Gabapentin 300 MG CAP PO SCH (08:07)
[2023-04-11] MEDS: Clopidogrel Bisulfate 75 MG TAB PO SCH (08:07)
[2023-04-11] MEDS: lamoTRIgine 100 MG TAB PO SCH (08:08)
[2023-04-11] MEDS: glipiZIDE 5 MG TAB PO SCH (08:08)
[2023-04-11] MEDS: tiZANidine HCl 4 MG TAB PO SCH (08:08)
[2023-04-11] MEDS: metFORMIN 500 MG TAB PO SCH (08:08)
[2023-04-11] MEDS: HYDROcodone/Acetaminophen 5/325 mg Tablet PO PRN (08:09)
[2023-04-11] MEDS: Enoxaparin 40 MG (0.4 mL) SYRINGE SC SCH (08:09)
[2023-04-11 09:53] VITALS: BP 127/77
[2023-04-11] MEDS: Acetaminophen 325 MG TAB PO PRN (11:39)
== END 2023-04-11 11:53 | DRG 502 ==
LOC: ERS 13:17 → T4-A 15:52
PROVIDERS: ADMIT Internal Medicine; ATTEND Hospitalist
PROC: 0JDP0ZZ Extraction of Left Lower Leg Subcutaneous Tissue and Fascia, Open Approach (ICD-10-PCS; principal; 2023-04-08)
PROC: 3E033XZ Introduction of Vasopressor into Peripheral Vein, Percutaneous Approach (ICD-10-PCS; 2023-04-08)
DX: T87.44 Infection of amputation stump, left lower extremity (principal); T87.81 Dehiscence of amputation stump; E11.51 Type 2 diabetes mellitus with diabetic peripheral angiopathy without gangrene; I10 Essential (primary) hypertension; E11.65 Type 2 diabetes mellitus with hyperglycemia; E78.5 Hyperlipidemia, unspecified; F20.9 Schizophrenia, unspecified; F42.9 Obsessive-compulsive disorder, unspecified; E11.40 Type 2 diabetes mellitus with diabetic neuropathy, unspecified; F41.9 Anxiety disorder, unspecified; I95.9 Hypotension, unspecified; F31.9 Bipolar disorder, unspecified; Z98.890 Other specified postprocedural states; Z88.0 Allergy status to penicillin; Z89.512 Acquired absence of left leg below knee; Z91.041 Radiographic dye allergy status; Z79.899 Other long term (current) drug therapy; Z90.49 Acquired absence of other specified parts of digestive tract; Z98.51 Tubal ligation status; Z82.49 Family history of ischemic heart disease and other diseases of the circulatory system; Z83.3 Family history of diabetes mellitus; Z87.891 Personal history of nicotine dependence; Z11.52 Encounter for screening for COVID-19
CPT/HCPCS: 36415; 36416; 71045; 80048; 80053; 80202; 81001; 82010; 82565; 82805; 83605; 85025; 86140; 87040; 87086; 93005; 96374; 96375; 97139; J0692; J1170; J1650; J1815; J2270; J2272; J2405; J2704; J3010; J3370; J3370-JW; J3490; J7050; S0028

== ENCOUNTER 2023-04-12 16:36 | Emergency (ER) | payer OTHER | END 2023-04-12 19:08 | disposition home or self-care (01) | LOC: ERS 16:36 | DX: M79.604 Pain in right leg (principal); E11.9 Type 2 diabetes mellitus without complications; I10 Essential (primary) hypertension ==

== ENCOUNTER 2025-02-26 09:17 | Emergency (ER) | payer MEDICARE, MEDICAID ==
[2025-02-26 09:46] LABS: #Basophils 0.04 10x3/uL (0.0-0.2); #Eosinophils 0.21 10x3/uL (0.0-0.7); #Monocytes 0.76 10x3/uL (0.11-0.59); #Neutrophils 6.65 10x3/uL (1.40-6.50); %Basophils 0.4 % (0.0-1.0); %Eosinophils 2.2 % (0.0-10.0); %Lymphocytes 18.6 % (21.0-51.0); %Monocytes 8.0 % (0.0-10.0); %Neutrophils 70.5 % (42.0-75.0); Hematocrit 33.5 % (36.0-47.0); Hemoglobin 10.3 g/dL (12.0-16.0); Mean Corpuscular Hemoglobin 27.8 pg (27.0-31.0); Mean Corpuscular Volume 90.5 fL (78.0-98.0); Platelet Count 252 10x3/uL (130-400); Red Blood Cell (RBC) Count 3.70 mill/uL (4.20-5.40); White Blood Cell (WBC) Count 9.45 10x3/uL (4.8-10.8)
[2025-02-26 10:00] LABS: ALT (SGPT) 12 U/L (Less than 34); AST (SGOT) 15 U/L (11-34); Albumin 3.4 g/dL (3.1-4.5); Alkaline Phosphatase 99 U/L (40-110); Anion Gap 14 mmol/L (10-20); BUN (Urea Nitrogen) 13 mg/dL (9.8-20.1); Bilirubin, Total 0.2 mg/dL (0.3-1.2); Calc. Creatinine Clearance 0 mL/min (70-130); Calcium 8.8 mg/dL (7.8-10.44); Carbon Dioxide 22 mmol/L (23-31); Chloride 108 mmol/L (98-107); Globulin 3.9 g/dL (2.4-3.5); Glucose 201 mg/dL (80-115); Lipase 31 U/L (8-78); Potassium 4.0 mmol/L (3.5-5.1); Sodium 140 mmol/L (136-145)
[2025-02-26] MEDS ORDERED: diphenhydrAMINE 50 MG/ML VIAL ONE (10:32)
[2025-02-26] MEDS ORDERED: Famotidine/PF 20 mg/2ml Vial ONE (10:33)
[2025-02-26 11:16] LABS: Glucose, Urine (Dipstick) 250 mg/dL (Negative); Leukocyte Negative (Negative); Protein, Urine (Dipstick) Negative (Neg-Trace); Specific Gravity, Urine 1.025 (1.005-1.030)
[2025-02-26 11:21] LABS: Bacteria/HPF None Seen HPF (None Seen); CAUTI Indications for Culture Dysuria,urgency,freq; RBC/HPF 0-3 HPF (0-3); WBC/HPF 0-3 HPF (0-3)
[2025-02-26 11:23] LABS: Urine Culture Reflex No No
[2025-02-26] MEDS ORDERED: Iopamidol-370 76% 500 ML MDV (1 ML CHARGE) ONE (12:20)
== END 2025-02-26 14:54 | disposition home or self-care (01) ==
LOC: ERS 09:17
DX: R07.89 Other chest pain (principal); R10.84 Generalized abdominal pain; R53.1 Weakness; I10 Essential (primary) hypertension; E11.9 Type 2 diabetes mellitus without complications; E78.5 Hyperlipidemia, unspecified; I73.9 Peripheral vascular disease, unspecified; Z86.718 Personal history of other venous thrombosis and embolism
CPT/HCPCS: 71045; 71275; 74177; 80053; 81001; 83605; 83690; 83880; 84484 ×2; 85025; 87040; 87077; 87086; 87186; 87428; 93005; 96360; 96374; 96375; 99285; J1200; J1308; J2919; Q9967

== ENCOUNTER 2025-03-03 05:50 | Inpatient (IN) | payer MEDICARE, OTHER ==
[2025-03-03] MEDS ORDERED: Cefepime 2 GM VIAL ONE ×2 (06:46→21:26)
[2025-03-03] MEDS ORDERED: Acetaminophen 500 MG TAB ONE (06:46)
[2025-03-03 08:27] LABS: #Basophils 0.03 10x3/uL (0.0-0.2); #Eosinophils 0.04 10x3/uL (0.0-0.7); #Monocytes 0.82 10x3/uL (0.11-0.59); #Neutrophils 11.96 10x3/uL (1.40-6.50); %Basophils 0.2 % (0.0-1.0); %Eosinophils 0.3 % (0.0-10.0); %Lymphocytes 7.2 % (21.0-51.0); %Monocytes 5.9 % (0.0-10.0); %Neutrophils 85.7 % (42.0-75.0); Hematocrit 29.8 % (36.0-47.0); Hemoglobin 9.4 g/dL (12.0-16.0); Mean Corpuscular Hemoglobin 27.7 pg (27.0-31.0); Mean Corpuscular Volume 87.9 fL (78.0-98.0); Platelet Count 274 10x3/uL (130-400); Red Blood Cell (RBC) Count 3.39 mill/uL (4.20-5.40); White Blood Cell (WBC) Count 13.95 10x3/uL (4.8-10.8)
[2025-03-03 08:43] LABS: ALT (SGPT) 12 U/L (Less than 34); AST (SGOT) 20 U/L (11-34); Albumin 3.0 g/dL (3.1-4.5); Alkaline Phosphatase 77 U/L (40-110); Anion Gap 11 mmol/L (10-20); BUN (Urea Nitrogen) 15 mg/dL (9.8-20.1); Bilirubin, Total 0.3 mg/dL (0.3-1.2); Calc. Creatinine Clearance 0 mL/min (70-130); Calcium 7.9 mg/dL (7.8-10.44); Carbon Dioxide 22 mmol/L (23-31); Chloride 112 mmol/L (98-107); Globulin 3.5 g/dL (2.4-3.5); Glucose 249 mg/dL (80-115); Potassium 3.6 mmol/L (3.5-5.1); Sodium 141 mmol/L (136-145)
[2025-03-03 08:43] LABS: Actual Bicarbonate (HCO3v) 19.7 mEq/L (22-28); Base Excess -4.7 mEq/L (-2.0 to +3.0); Calcium, Ionized (venous) 1.05 mmol/L (1.16-1.32); Chloride (VBG) 109 mmol/L (98-106); Hematocrit-VBG 31 % (36.0-47.0); Hemoglobin (Hb) 10.6 g/dL (11.7-16.1); Potassium (VBG) 3.82 mmol/L (3.70-5.30); Sodium 141 mmol/L (133-146)
[2025-03-03 08:47] LABS: CAUTI Indications for Culture Alt mental st,lethar; Glucose, Urine (Dipstick) 500 mg/dL (Negative); Leukocyte 75 Leu/uL (Negative); Protein, Urine (Dipstick) 20 mg/dL (Neg-Trace); Specific Gravity, Urine 1.022 (1.002-1.036)
[2025-03-03 08:50] LABS: Bacteria/HPF Rare-Few HPF (None Seen)
[2025-03-03 08:51] LABS: Urine Culture Reflex Yes Yes
[2025-03-03] MEDS ORDERED: Dextrose 50% Abboject 50 ML SYRINGE SLOW IVP PRN (09:55)
[2025-03-03] MEDS ORDERED: Glucagon 1 MG/ML KIT IM PRN (09:55)
[2025-03-03] MEDS: Vancomycin (BATCH) 2.5 GM in Premix 1 BAG IVPB SCH (10:13)
[2025-03-03 10:58] VITALS: BMI 31.0
[2025-03-03] MEDS ORDERED: Acetaminophen 325 MG TAB ONE (19:43)
[2025-03-03] MEDS: Acetaminophen 325 MG TAB PO PRN (19:46)
[2025-03-03] MEDS ORDERED: Apixaban 5 MG TAB ONE (21:26)
[2025-03-03] MEDS: Apixaban 5 MG TAB PO SCH (21:37)
[2025-03-03] MEDS: lamoTRIgine 100 MG TAB PO SCH (22:31)
[2025-03-03] MEDS: PARoxetine 20 MG TAB PO SCH (22:31)
[2025-03-03] MEDS: Vancomycin HCl 1.25 GM in Sodium Chloride 0.9% 250 ML 250 ML IVPB SCH (22:33)
[2025-03-04 04:09] LABS: Anion Gap 9 mmol/L (10-20); BUN (Urea Nitrogen) 10 mg/dL (9.8-20.1); Calc. Creatinine Clearance 141 mL/min (70-130); Calcium 8.7 mg/dL (7.8-10.44); Carbon Dioxide 21 mmol/L (23-31); Chloride 109 mmol/L (98-107); Glucose 372 mg/dL (80-115); Potassium 3.9 mmol/L (3.5-5.1); Sodium 135 mmol/L (136-145)
[2025-03-04 04:13] LABS: Vancomycin, Random 22.0 ug/mL (See Comment)
[2025-03-04 04:24] LABS: #Basophils Less than 0.03 10x3/uL (0.0-0.2); #Eosinophils Less than 0.03 10x3/uL (0.0-0.7); #Monocytes 0.07 10x3/uL (0.11-0.59); #Neutrophils 10.47 10x3/uL (1.40-6.50); %Basophils 0.2 % (0.0-1.0); %Eosinophils 0.0 % (0.0-10.0); %Lymphocytes 7.4 % (21.0-51.0); %Monocytes 0.6 % (0.0-10.0); %Neutrophils 91.3 % (42.0-75.0); Hematocrit 32.0 % (36.0-47.0); Hemoglobin 9.9 g/dL (12.0-16.0); Mean Corpuscular Hemoglobin 27.7 pg (27.0-31.0); Mean Corpuscular Volume 89.4 fL (78.0-98.0); Platelet Count 269 10x3/uL (130-400); Red Blood Cell (RBC) Count 3.58 mill/uL (4.20-5.40); White Blood Cell (WBC) Count 11.47 10x3/uL (4.8-10.8)
[2025-03-04] MEDS: Mometasone Furoate 120 PUFF 220 MCG INH SCH (07:19)
[2025-03-04] MEDS: glipiZIDE 5 MG TAB PO SCH (09:15)
[2025-03-04] MEDS: Ferrous Sulfate 325 MG TAB PO SCH (09:15)
[2025-03-04] MEDS: Multivit, Therapeutic 1 TAB PO SCH (09:15)
[2025-03-04] MEDS: Pantoprazole 40 MG DR.TAB PO SCH (09:15)
[2025-03-04] MEDS: Ondansetron PF 4 MG/2 ML Vial IVP PRN (09:31)
[2025-03-04 13:08] VITALS: BMI 31.0
[2025-03-04] MEDS: Vancomycin 1 GM in Premix 1 BAG IVPB SCH (17:29)
[2025-03-04 18:44] LABS: Glucose, Urine (Dipstick) Greater than 1000 mg/dL (Negative); Leukocyte Negative Leu/uL (Negative); Protein, Urine (Dipstick) Negative (Neg-Trace); Specific Gravity, Urine 1.018 (1.002-1.036)
[2025-03-04 18:47] LABS: Bacteria/HPF Rare-Few HPF (None Seen); RBC/HPF 0-3 HPF (0-3); WBC/HPF 0-3 HPF (0-3)
[2025-03-04] MEDS: Melatonin 3 MG TAB PO PRN (20:32)
[2025-03-04] MEDS: Transdermal Patch Removal TOP SCH (20:54)
[2025-03-05] MEDS: Guaifenesin DM 100-10/5 ML UDCUP PO PRN (04:04)
[2025-03-05 04:07] LABS: #Basophils 0.03 10x3/uL (0.0-0.2); #Eosinophils 0.03 10x3/uL (0.0-0.7); #Monocytes 0.90 10x3/uL (0.11-0.59); #Neutrophils 8.06 10x3/uL (1.40-6.50); %Basophils 0.3 % (0.0-1.0); %Eosinophils 0.3 % (0.0-10.0); %Lymphocytes 17.5 % (21.0-51.0); %Monocytes 8.2 % (0.0-10.0); %Neutrophils 72.9 % (42.0-75.0); Hematocrit 29.8 % (36.0-47.0); Hemoglobin 9.6 g/dL (12.0-16.0); Mean Corpuscular Hemoglobin 27.4 pg (27.0-31.0); Mean Corpuscular Volume 84.9 fL (78.0-98.0); Platelet Count 292 10x3/uL (130-400); Red Blood Cell (RBC) Count 3.51 mill/uL (4.20-5.40); White Blood Cell (WBC) Count 11.04 10x3/uL (4.8-10.8)
[2025-03-05 04:36] LABS: Anion Gap 4 mmol/L (10-20); BUN (Urea Nitrogen) 16 mg/dL (9.8-20.1); Calc. Creatinine Clearance 136 mL/min (70-130); Calcium 9.9 mg/dL (7.8-10.44); Carbon Dioxide 22 mmol/L (23-31); Chloride 110 mmol/L (98-107); Glucose 279 mg/dL (80-115); Potassium 3.4 mmol/L (3.5-5.1); Sodium 133 mmol/L (136-145)
[2025-03-06 04:25] LABS: #Basophils 0.06 10x3/uL (0.0-0.2); #Eosinophils 0.23 10x3/uL (0.0-0.7); #Monocytes 0.71 10x3/uL (0.11-0.59); #Neutrophils 6.48 10x3/uL (1.40-6.50); %Basophils 0.6 % (0.0-1.0); %Eosinophils 2.4 % (0.0-10.0); %Lymphocytes 21.8 % (21.0-51.0); %Monocytes 7.3 % (0.0-10.0); %Neutrophils 67.2 % (42.0-75.0); Hematocrit 31.6 % (36.0-47.0); Hemoglobin 9.8 g/dL (12.0-16.0); Mean Corpuscular Hemoglobin 26.9 pg (27.0-31.0); Mean Corpuscular Volume 86.8 fL (78.0-98.0); Platelet Count 302 10x3/uL (130-400); Red Blood Cell (RBC) Count 3.64 mill/uL (4.20-5.40); White Blood Cell (WBC) Count 9.66 10x3/uL (4.8-10.8)
[2025-03-06 04:45] LABS: Vancomycin, Random 11.9 ug/mL (See Comment)
[2025-03-06 04:48] LABS: Anion Gap 15 mmol/L (10-20); BUN (Urea Nitrogen) 12 mg/dL (9.8-20.1); Calc. Creatinine Clearance 148 mL/min (70-130); Calcium 9.2 mg/dL (7.8-10.44); Carbon Dioxide 22 mmol/L (23-31); Chloride 106 mmol/L (98-107); Glucose 223 mg/dL (80-115); Potassium 3.6 mmol/L (3.5-5.1); Sodium 139 mmol/L (136-145)
[2025-03-06] MEDS: Insulin Glargine 30 UNITS/0.3 ML VIAL SC SCH (09:57)
[2025-03-06] MEDS: FLU (Fluad Triv) 25-26 (65UP)PF 45 MCG/0.5 ML Syringe IM ONE (09:58)
[2025-03-06] MEDS: Vancomycin 1.25 GM / NS 250 ML VIAL-2-BAG IVPB SCH (17:48)
[2025-03-07] MEDS: metFORMIN 500 MG TAB PO SCH (18:01)
[2025-03-07] MEDS: OLANZapine 5 MG TAB PO SCH (20:18)
[2025-03-08 04:30] LABS: Vancomycin, Random 17.1 ug/mL (See Comment)
[2025-03-08 04:40] LABS: Calc. Creatinine Clearance 137.0 mL/min (70-130)
[2025-03-08] MEDS: Mometasone Furoate 30 PUFF 220 MCG INH SCH (07:08)
[2025-03-08 20:29] VITALS: BP 143/79; TEMP 98.8
== END 2025-03-08 21:40 | DRG 871 ==
LOC: ERS 05:50 → ERHOLD 09:56 → PCU 23:56
PROVIDERS: ADMIT Internal Medicine; ATTEND Family Medicine
DX: A41.9 Sepsis, unspecified organism (principal); J18.9 Pneumonia, unspecified organism; N39.0 Urinary tract infection, site not specified; F25.0 Schizoaffective disorder, bipolar type; G89.4 Chronic pain syndrome; E11.42 Type 2 diabetes mellitus with diabetic polyneuropathy; N18.32 Chronic kidney disease, stage 3b; F41.9 Anxiety disorder, unspecified; E11.51 Type 2 diabetes mellitus with diabetic peripheral angiopathy without gangrene; Z86.73 Personal history of transient ischemic attack (TIA), and cerebral infarction without residual deficits; Z88.1 Allergy status to other antibiotic agents; Z88.0 Allergy status to penicillin; Z86.718 Personal history of other venous thrombosis and embolism; Z98.890 Other specified postprocedural states; Z88.8 Allergy status to other drugs, medicaments and biological substances; J45.909 Unspecified asthma, uncomplicated; R09.02 Hypoxemia; E78.5 Hyperlipidemia, unspecified; Z90.49 Acquired absence of other specified parts of digestive tract; D63.1 Anemia in chronic kidney disease; I12.9 Hypertensive chronic kidney disease with stage 1 through stage 4 chronic kidney disease, or unspecified chronic kidney disease; Z95.1 Presence of aortocoronary bypass graft; F70 Mild intellectual disabilities; Z91.041 Radiographic dye allergy status; I71.21 Aneurysm of the ascending aorta, without rupture
CPT/HCPCS: 36415; 36416; 51701; 70450; 71045; 71250; 74177; 80048; 80053; 80202; 81001; 81003; 82565; 82805; 83605; 83880; 85025; 87040; 87086; 93005; 94640; 94760; 96365; 96366; 96367; J0692; J1815; J2405; J2919; J3373; J7030; J7050